=== PATIENT | female | born 1945 | race Caucasian/White ===

== ENCOUNTER 2019-04-23 19:05 | Inpatient (IN) | payer MEDICARE ==
[~2019-04-23 19:05] MED LIST: Iopamidol-370 76% 500 ML 1 ML ONE
[2019-04-23] MEDS ORDERED: Piperacillin/Tazobactam 3.375 GM VIAL ONE (19:49)
[2019-04-23] MEDS ORDERED: Magnesium 2 GM/50 ML BAG (IN WATER) ONE (19:49)
[2019-04-23 20:18] LABS: #Lymphocytes 0.9 thou/uL (1.20-3.40); #Monocytes 0.5 thou/uL (0.11-0.59); #Neutrophils 9.7 thou/uL (1.40-6.50); %Basophils 0.3 % (0.0-1.0); %Eosinophils 0.4 % (0.0-10.0); %Lymphocytes 7.7 % (21.0-51.0); %Monocytes 4.6 % (0.0-10.0); Hemoglobin 13.5 g/dL (12.0-16.0); Mean Corpuscular HGB CONC 32.2 g/dL (32.0-36.0); Mean Corpuscular Hemoglobin 28.8 pg (27.0-31.0); Mean Corpuscular Volume 89.2 fL (78.0-98.0); Mean Platelet Volume 8.3 fL (7.4-10.4); Platelet Count 169 thou/uL (130-400); RBC Distribution Width 17.4 % (11.5-14.5); Red Blood Cell (RBC) Count 4.69 mill/uL (4.20-5.40); White Blood Cell (WBC) Count 11.2 thou/uL (4.8-10.8)
--- NOTE | 2019-04-23 20:22 | RAD ---
EXAM: XR Chest 1 View Portable PROVIDED CLINICAL HISTORY: Hypoxia COMPARISON: None FINDINGS: Cardiac silhouette appears enlarged. No focal consolidation, pleural fluid or pneumothorax apparent. Surgical clips overlie the left chest. IMPRESSION: Cardiomegaly without evidence for an acute cardiopulmonary process.
[2019-04-23 20:23] LABS: Prothrombin Time 13.6 SEC (12.0-14.7)
[2019-04-23 20:31] LABS: Bacteria/HPF None Seen HPF (None Seen); Bilirubin Negative (Negative); Blood, Urine Negative (Negative); Clarity Clear (Clear); Glucose, Urine (Dipstick) Normal (Negative); Leukocyte Negative Leu/uL (Negative); Nitrite Negative (Negative); Protein, Urine (Dipstick) 30 mg/dL (Neg-Trace); RBC/HPF 0-3 HPF (0-3); Squamous Epithelial 0-3 HPF (0-3); Urobilinogen Normal mg/dL (Less than 2); WBC/HPF 0-3 HPF (0-3)
[2019-04-23 20:38] LABS: ALT (SGPT) 24 U/L (8-55); AST (SGOT) 30 U/L (5-34); Albumin 3.4 g/dL (3.4-4.8); Alkaline Phosphatase 67 U/L (40-110); Anion Gap 20 mmol/L (10-20); BUN (Urea Nitrogen) 13 mg/dL (9.8-20.1); Bilirubin, Total 1.4 mg/dL (0.2-1.2); Calc. Creatinine Clearance 0 mL/min (70-130); Calcium 9.3 mg/dL (7.8-10.44); Carbon Dioxide 19 mmol/L (23-31); Chloride 101 mmol/L (98-107); Estimated GFR-MDRD 58; Globulin 2.7 g/dL (2.4-3.5); Glucose 99 mg/dL (83-110); Lipase 27 U/L (8-78); Magnesium 1.6 mg/dL (1.6-2.6); Potassium 3.1 mmol/L (3.5-5.1); Protein, Total 6.1 g/dL (6.0-8.3); Sodium 137 mmol/L (136-145)
[2019-04-23 20:39] LABS: D-Dimer Test 4.81 *mcg/mL (0.27-0.43)
[2019-04-23 20:43] LABS: PTT 17.8 SEC (22.9-36.1)
[2019-04-23 20:57] LABS: Free T4 (Free Thyroxine) 1.2 ng/dL (0.70-1.48); Thyroid Stimulating Hormone 4.8687 uIU/mL (0.35-4.94)
[2019-04-23] MEDS ORDERED: methylPREDNISolone Sod Succ/PF 125 MG/2 ML VIAL ONE (23:04)
[2019-04-23] MEDS ORDERED: diphenhydrAMINE 50 MG/ML VIAL ONE (23:05)
[2019-04-23] MEDS ORDERED: Famotidine/PF 20 mg/2ml Vial ONE (23:06)
[2019-04-24] MEDS ORDERED: Enoxaparin Sodium 30 MG/0.3 ML SYRINGE ONE ×2 (01:38→01:40)
[2019-04-24] MEDS ORDERED: Enoxaparin Sodium 80 MG/0.8 ML SYRINGE ONE (01:38)
[2019-04-24] MEDS ORDERED: Potassium Chloride 20 MEQ TAB ONE (01:40)
[2019-04-24 02:02] LABS: CKMB 1.8 ng/mL (0-6.6)
--- NOTE | 2019-04-24 02:57 | HP ---
PRIMARY CARE PHYSICIAN: The patient currently does not have a primary care physician. CHIEF COMPLAINT: "I was about to pass out." HISTORY OF PRESENT ILLNESS: Ms. Quintero is a pleasant 73-year-old female, who has a history of recently diagnosed colon cancer as well as hypertension and history of coronary artery disease. She says that she was extremely weak, but she says this has been coming on gradually. She says that she was trying to get washed up for an appointment that is going to be later on today, when she says that she just "gave out" and could not get up. She started to get cold and clammy and shaky and this is when her called EMS to bring her to the emergency room. When she was evaluated in the ER, she was found to have an elevated D-dimer, and a CT angiogram was obtained and it was found that she has an acute pulmonary embolus on the right side. She is being admitted for further evaluation. The patient denies any jimenez chest pain or dyspnea. Her main problem is just poor oral intake and feeling generally weak. The patient also admits to having some dark loose stools, but she says she has had this ever since the surgery. She has a history of atrial fibrillation and is not on anticoagulation, but cannot really tell me why she denies having any GI bleed that she is aware of. Her records from [place], [place] were reviewed and it appears as if she has had a recent EGD and biopsy, where she had a pedunculated polyp removed and then also had the colonoscopy and the frozen section of which showed an invasive, moderately differentiated adenocarcinoma, which extended into the muscularis propria and into the mesenteric fascia. REVIEW OF SYSTEMS: All systems were reviewed and are negative except for that mentioned in the history of present illness. PAST MEDICAL HISTORY: Significant for colon cancer, atrial fibrillation, hypertension, and coronary artery disease. ALLERGIES: TO CIPRO AND IODINE. PAST SURGICAL HISTORY: She has had a coronary stent placed. She has had bypass surgery, a partial resection of the colon for colon cancer, cholecystectomy, and knee implant surgery. SOCIAL HISTORY: She is a former smoker, she quit in the . She smoked about a pack a day for the last 20 years. Denies any alcohol use and would like to be a full code. FAMILY HISTORY: Significant for heart disease in her brother as well as prostate cancer. CURRENT MEDICATIONS: Include, 1. Omeprazole 40 mg daily. 2. Augmentin. 3. Famotidine 20 mg a day. 4. Multaq 400 mg twice daily. 5. K-Dur 20 mEq daily. In her records, it appears she was on carvedilol as well as an atorvastatin and a baby aspirin. PHYSICAL EXAMINATION: GENERAL: She is alert and oriented. She appears to be in some mild distress, mainly due to weakness, but she does not appear tachypneic or dyspneic. VITAL SIGNS: The blood pressure was 135/80, her heart rate is 68, respiratory rate of 22, and temperature is 97.8. HEENT: Pupils are equal, round, and reactive. Extraocular muscles are intact. Sclerae are anicteric. Throat, mildly dry mucous membranes. No erythema. No exudates. NECK: No adenopathy. No bruits. LUNGS: Clear to auscultation. There is no wheezing, no rales, no rhonchi. CARDIOVASCULAR: She has a normal S1 and S2. There is no S3 or S4. No murmurs, clicks or rubs. ABDOMEN: Obese. It is soft, nontender, and nondistended. Positive for bowel sounds. No rebound. No guarding. No organomegaly. EXTREMITIES: There is no edema. She does have some bruising on her abdomen and on her lower legs. NEUROLOGIC: The exam is grossly nonfocal. SKIN AND INTEGUMENT: There are no skin changes other than the bruising and some dry skin on the lower extremities. LABORATORY RESULTS: Sodium is 137, potassium 3.1, chloride is 101, CO2 is 19, BUN of 13, and creatinine 0.94. The white blood cell count is 11.2, hemoglobin 13.5, hematocrit is 41.9, and platelet count is . INR is 1.0. Urinalysis is essentially negative. IMAGING DATA: CT angiogram; I do not have the official reading back, but it is reported as having a right sided pulmonary embolism. ASSESSMENT: 1. This is a 73-year-old female, being admitted for an acute pulmonary embolism. She will be admitted and started on anticoagulation. We will monitor her H and H carefully as I am not sure why she had not been on anticoagulation in the past. She may be at risk for a gastrointestinal bleed. Placed her on IV Protonix as well. 2. Colon cancer. This appears to be newly diagnosed. She has not seen any type of oncologist and she was really not clear as to whether or not she would need any further treatment; however, reading the preliminary pathology report, it appears as if there was some extension of the cancer into the muscularis propria. Therefore, we will consult Oncology for recommendations. 3. Coronary artery disease. This appears to be stable, although she has significant T-wave inversions on her EKG. We will submit for records from [facility] for comparison. 4. Hypertension. The patient says she has been taken off all antihypertensive medications due to the low blood pressure. She says that this had been going on prior to her colon surgery. Her pressure, she says, got as low as 76 systolic. She is not really sure why, but it had been low for the past month. Therefore, we will just monitor this and treat accordingly. Job ID: [id number]
[2019-04-24] MEDS ORDERED: Acetaminophen 325 MG TAB PO PRN (03:07)
[2019-04-24] MEDS ORDERED: hydrALAZINE 20 MG/ML VIAL SLOW IVP PRN (03:07)
[2019-04-24 05:36] LABS: #Lymphocytes 0.3 thou/uL (1.20-3.40); #Monocytes 0.1 thou/uL (0.11-0.59); %Eosinophils 0.1 % (0.0-10.0); %Monocytes 1.9 % (0.0-10.0); Mean Corpuscular HGB CONC 33.4 g/dL (32.0-36.0); Mean Corpuscular Hemoglobin 29.1 pg (27.0-31.0); Mean Corpuscular Volume 87.2 fL (78.0-98.0); Mean Platelet Volume 8.2 fL (7.4-10.4); Platelet Count 150 thou/uL (130-400); RBC Distribution Width 17.4 % (11.5-14.5); Red Blood Cell (RBC) Count 4.11 mill/uL (4.20-5.40); White Blood Cell (WBC) Count 5.5 thou/uL (4.8-10.8)
[2019-04-24 05:54] LABS: Anion Gap 16 mmol/L (10-20); BUN (Urea Nitrogen) 12 mg/dL (9.8-20.1); Calc. Creatinine Clearance 0 mL/min (70-130); Calcium 8.6 mg/dL (7.8-10.44); Carbon Dioxide 21 mmol/L (23-31); Chloride 104 mmol/L (98-107); Estimated GFR-MDRD 63; Glucose 106 mg/dL (83-110); Potassium 3.3 mmol/L (3.5-5.1); Sodium 138 mmol/L (136-145)
--- NOTE | 2019-04-24 07:03 | CT ---
PRELIMINARY REPORT/[facility]/EMERGENCY AFTER HOURS PROCEDURE: EXAM: CTA Chest with Intravenous Contrast CLINICAL HISTORY: 73 yo F presents to ER with c/o generalized weakness. ER nurse reports recent ER visit for UTI. Pt re ports she had recent colon cancer and surgery 1 month ago. Pt denies fever, abdominal pain, chest ed n, SOB. Pt reports she has atrial fibrillation and takes medication for it. TECHNIQUE: Axial CTA images of the chest with intravenous contrast. MIP reconstructed images were created and re viewed. CONTRAST: With; ISOVUE 370,100mL COMPARISON: None provided. FINDINGS: PULMONARY ARTERIES Enlarged main pulmonary artery measuring up to 4.3 cm in diameter. Emboli in the right middle and lo wer lobar and segmental arterial branches. AORTA Enlarged ascending aorta measuring up to 4.1 cm in diameter. Atherosclerosis. LUNGS Bibasilar subsegmental atelectasis. No pulmonary mass. No focal airspace consolidation. PLEURAL SPACES Trace right-sided pleural effusion. No pneumothorax. HEART AND MEDIASTINUM Moderate cardiomegaly. No significant pericardial effusion. The coronary arteries are calcified. LYMPH NODES No lymphadenopathy. BONES No focal osseous abnormality or acute fracture. Multilevel degenerative disc disease. CHEST WALL AND UPPER ABDOMEN Cholecystectomy clips in the gallbladder fossa. Small hiatal hernia. 2.2 cm hypodense left adrenal adenoma. 1.8 cm cyst at the upper pole of the right kidney. The chest wall is unremarkable. IMPRESSION: Emboli in the right middle and lower lobar and segmental arterial branches. No evidence of right-lisa ed cardiac strain. Enlarged main pulmonary artery suggestive of pulmonary artery hypertension. Bibasilar subsegmental atelectasis. Trace right-sided pleural effusion. Moderate cardiomegaly. Coronary artery disease. Ectasia of the ascending aorta. ELECTRONICALLY SIGNED BY: Danilo Hu MD Apr 24, 2019 1:14:15 AM PHOTOGRAPHIC MACHINE OPERATOR This report is intended for review by the ordering physician only, in accordance of law. If you recei ve this report in error, please call [facility] at [phone]. FINAL REPORT EMERGENCY AFTER HOURS CTA CHEST: I agree with the preliminary report provided by [facility]. Findings are positive for PE within lobar and segmental branches of the right middle lobe and right l ower lobe with enlargement of the pulmonary arterial tree likely related to some underlying pulmonary artery hypertension. The ascending aorta measures 3.9 cm and only minimally ectatic. There are coron sofiya artery and thoracic aortic calcifications. There is a small hiatal hernia. Gallbladder is surgica lly absent. There are small bilateral pleural effusions, right greater than left, with areas of scatt ered subsegmental volume loss. POS: BH
--- NOTE | 2019-04-24 07:06 | CT ---
PRELIMINARY REPORT/[facility]/EMERGENCY AFTER HOURS PROCEDURE: EXAM: CT Abdomen and Pelvis with Intravenous Contrast CLINICAL HISTORY: 73 yo F presents to ER with c/o generalized weakness. ER nurse reports recent ER visit for UTI. Pt re ports she had recent colon cancer and surgery 1 month ago. Pt denies fever, abdominal pain, chest ed n, SOB. Pt reports she has atrial fibrillation and takes medication for it. TECHNIQUE: Axial computed tomography images of the abdomen and pelvis with intravenous contrast. CONTRAST: With; ISOVUE 370,100mL COMPARISON: None provided. FINDINGS: LUNGS: Trace right-sided pleural effusion. Compression atelectasis bilaterally. LIVER: Unremarkable. GALLBLADDER AND BILE DUCTS: Cholecystectomy clips in the gallbladder fossa. No ductal dilation. PANCREAS: Unremarkable. SPLEEN: Unremarkable. ADRENAL GLANDS: 2 cm heterogeneous left adrenal lesion. The right adrenal gland is normal. KIDNEYS, URETERS, AND BLADDER: Unremarkable. No hydronephrosis or nephrolithiasis. No ureteral or yuridia dder calculi. STOMACH AND BOWEL: Small hiatal hernia. No obstruction. No wall thickening. No CT evidence of coliti s or acute diverticulitis. Sutures in the left hemiabdomen associated with the colon. APPENDIX: No CT evidence for appendicitis. PERITONEUM: No free fluid. No free air. LYMPH NODES: No lymphadenopathy. REPRODUCTIVE: 4.9 cm lesion in the uterine body. VASCULATURE: No aortic aneurysm. Atherosclerosis. BONES: No fracture or suspicious osseous abnormality. Osteoarthritis of the bilateral hips and SI pedro pablo ints. Multilevel degenerative disc disease. ABDOMINAL WALL AND SOFT TISSUES: Linear scar tissue in the ventral abdominal wall. IMPRESSION: No acute intra-abdominal or pelvic abnormality. Heterogeneous mass in the uterus which may represent a fibroid although a malignant process cannot be excluded. Follow-up with an MRI of the pelvis is recommended. Heterogeneous lesion in the left adrenal gland. Follow-up with an adrenal protocol CT or MRI is ariel mmended. ELECTRONICALLY SIGNED BY: Danilo Hu MD Apr 24, 2019 1:19:52 AM SCOREBOARD OPERATOR This report is intended for review by the ordering physician only, in accordance of law. If you recei ve this report in error, please call [facility] at [phone]. FINAL REPORT EMERGENCY AFTER HOURS CT ABDOMEN AND PELVIS: I agree with the preliminary report provided by [facility]. No definite acute CT abnormality is evident. There is a heterogeneous nodule involving the left adren al gland that requires further evaluation. There are small bilateral pleural effusions. There is a sm all hiatal hernia. The gallbladder is surgically absent. There is postsurgical change with partial co lectomy. There is a fibroid uterus. Small bowel is of normal caliber. There is scattered degenerative and osteoarthritic change. POS: BH
[2019-04-24] MEDS: Pantoprazole 40 MG VIAL IVP SCH ×2 (09:43→20:46)
[2019-04-24] MEDS: Sodium Chloride 0.9% (PF) 10 ML VIAL FS PRN (09:43)
[2019-04-24] MEDS: Enoxaparin Sodium 120 MG/0.8 ML SYRINGE SC SCH ×2 (09:43→20:46)
[2019-04-24] MEDS ORDERED: Prevnar 13-Val Conj/PF 0.5 ML SYRINGE IM ONE (10:30)
[2019-04-24] MEDS: Potassium Chloride 20 MEQ TAB PO SCH (20:46)
--- NOTE | 2019-04-24 21:21 | CON ---
DATE OF CONSULTATION: REASON FOR CONSULTATION: Colon cancer. HISTORY OF PRESENT ILLNESS: Ms. Quintero is a 73-year-old female, who presented to her primary care several weeks ago with abdominal discomfort. She was instructed to follow up with GI, but presented to the emergency room in [place], [place]. She states she underwent endoscopy and noted to have a mass. She then underwent surgery and the mass was removed and positive for adenocarcinoma. She was told that she was cancer free. She also states she was instructed to follow up with [facility] for her fibroid. She has not been on anticoagulation since surgery and is unclear as to why. She states over the past year, she has lost 100 pounds simply due to the fact that she is unable to eat. She feels nauseated when she takes food in her mouth or if food smells bad. Since her surgery last month, she has been weak and lying in bed. She began to have syncopal episodes with walking and shortness of breath, so she presented to our emergency room for evaluation. In the emergency room, a CT angio of the chest was performed. She had emboli in the right middle and lower lobe and segmental arterial branches. There was no evidence for right-sided cardiac strain. She also had enlarged main pulmonary artery suggestive of pulmonary artery hypertension, it was moderate cardiomegaly. She underwent a CT of the chest and pelvis. There was a heterogeneous mass in the uterus that was likely the fibroid she was speaking of. There was also a lesion in the left adrenal gland that was likely a cyst. no evidence of colon mass. The patient was started on therapeutic Lovenox and IV Protonix. Her antihypertensives were held. We were asked to see the patient regarding her newly diagnosed cancer. PAST MEDICAL HISTORY: 1. Atrial fibrillation. 2. Newly diagnosed colon cancer. 3. Hypertension. 4. Coronary artery disease. PAST SURGICAL HISTORY: 1. Endoscopy. 2. CABG. 3. Cholecystectomy. 4. Knee surgery. 5. Resection of colon mass. ALLERGIES: TO CODEINE AND IODINE. HOME MEDICATIONS: 1. Amoxicillin. 2. Multaq. 3. Prilosec. 4. K-Dur. FAMILY HISTORY: Brother had prostate cancer. SOCIAL HISTORY: , lives with her on the other side of [place]. She gets her primary care in [place] in [place]. Former history of smoking. No alcohol or illicit drug use. REVIEW OF SYSTEMS: A 10-point review of systems is negative except for noted in HPI. PHYSICAL EXAMINATION: VITAL SIGNS: Temperature is 98.2, pulse is 88, respiratory rate 20, blood pressure is 142/76. She is 97% on room air. GENERAL: This is a well-developed, well-nourished female, in no acute distress. HEENT: Normocephalic, atraumatic. Pupils are equal and reactive to light. NECK: Supple. CV: Regular rate and rhythm. LUNGS: Clear. ABDOMEN: Soft and nontender. Bowel sounds are positive. EXTREMITIES: No clubbing or cyanosis. SKIN: She has a midline abdominal incision that is healing well. HEMATOLOGICAL: She has scattered bruising on her abdomen from what appears to be Lovenox injections. NEUROLOGIC: She is nonfocal. PSYCHIATRIC: She is alert oriented and appropriate. PERTINENT LABS AND X-RAYS: Current WBCs are 5.5, hemoglobin 12, hematocrit 35.8 , platelet count is 150,000, she has 92% neutrophils and 6% lymphocytes. PT is 13.6, INR is 1.0, PTT 17.8. D-dimer is 4.8. Sodium is 138, potassium 3.3, chloride 104, CO2 is 21, BUN is 12, creatinine 0.88. Lactic acid 2. Calcium 8.6, bilirubin is 1.4, AST is 30, ALT is 24, alkaline phosphatase is 67. Troponin is 0.085. BNP is 2876. Serum total protein is 6.1, albumin 3.4, globulin 2.7. Thyroid is normal. Urine is normal. Radiology per HPI. ASSESSMENT: 1. Newly diagnosed colon cancer with resection of tumor. 2. Pulmonary emboli, postsurgical. 3. History of atrial fibrillation, off anticoagulation. DISCUSSION: The patient has no medical records from [place] in her chart. Apparently, she did have some, but her has taken those home. I am unable to give her any recommendations regarding treatment for her colon cancer. We have asked for [facility] to re-fax these medical records. I have asked her to contact her and have him bring those records back. She did have followup appointments with an Oncology in [place] and with [facility] in [place], which she canceled because she was "sick of doctors." We discussed having followup here in [facility] versus [place] and she states [facility] is essentially the same distance. Since her primary care is in [place] and she has been receiving her care in [place], she would likely go back there, but our clinic information was provided. When/if medical records are obtained for her colon cancer, I can make recommendation regarding chemotherapy. Thank you for the consult. Job ID: [id number] [email or web address]
[2019-04-25] MEDS: Potassium Chloride 20 MEQ TAB PO SCH ×3 (01:02→11:32)
[2019-04-25 04:35] LABS: Magnesium 1.8 mg/dL (1.6-2.6)
[2019-04-25 04:41] LABS: Potassium 2.9 mmol/L (3.5-5.1)
[2019-04-25] MEDS ORDERED: Potassium Chloride 40 MEQ in Sodium Chloride 0.9% 250 ML 250 ML IVPB SCH ×2 (05:15→14:30)
[2019-04-25] MEDS: Sodium Chloride 0.9% (PF) 10 ML VIAL FS PRN (08:48)
[2019-04-25] MEDS: Enoxaparin Sodium 120 MG/0.8 ML SYRINGE SC SCH ×2 (08:51→20:53)
[2019-04-25] MEDS: Pantoprazole 40 MG VIAL IVP SCH ×2 (08:52→20:53)
--- NOTE | 2019-04-25 10:34 | CON ---
DATE OF CONSULTATION: 04/25/2019 CONSULTING PHYSICIAN: Hospitalist. REASON FOR CONSULTATION: Pulmonary embolism. The following encompassed 75 minutes of time, of that time, greater than 50% was spent with the patient and/or the patient's unit in the hospital. HISTORY OF PRESENT ILLNESS: The patient is a 73-year-old female, who came in yesterday with weakness. She says she almost passed out. She has been having incremental problems with low blood pressure. She had surgery for a colon tumor at [facility] in late February and was hospitalized until sometime early in March. She has had several more visits to the hospital related to hypotension. She said her hypotension actually proceeds the surgical date. Last night when she presented here, she underwent CT pulmonary angiogram, which showed a small right lower lobe pulmonary embolism. Her blood pressure has been appropriate since admission. The patient states that she has not been ambulatory since her surgery. PAST MEDICAL HISTORY: 1. No previous history of pulmonary embolism. 2. Chronic atrial fibrillation, now in sinus rhythm, on Multaq. 3. Colon cancer. 4. Hypertension. 5. Coronary artery disease. 6. Coronary stent placement. 7. Pacemaker placement. 8. Coronary artery bypass grafting surgery. 9. Cholecystectomy. 10. Knee surgery. ALLERGIES: CODEINE AND IODINE. MEDICATIONS: Prior to admission; 1. Amoxil. 2. Multaq. 3. Prilosec. 4. K-Dur. FAMILY HISTORY: Remarkable for prostate cancer. SOCIAL HISTORY: Former smoker. She lives outside of [place]. Does not use illicit drugs. Does not drink alcohol. REVIEW OF SYSTEMS: Remarkable for nausea, vomiting, syncopal spells, and decreased ambulation. PHYSICAL EXAMINATION: VITAL SIGNS: Temperature 98.4, pulse 79, blood pressure 153/90. The lowest blood pressure we have measured is 115/82. GENERAL: She is awake, alert, and in no distress. HEENT: Unremarkable. NECK: No adenopathy or JVD. LUNGS: Clear without wheezing or rhonchi. CARDIOVASCULAR: S1 and S2 regular with occasional ectopy. ABDOMEN: Soft, morbidly obese. EXTREMITIES: No clubbing, cyanosis, or edema. LABORATORY DATA: Sodium 138, potassium 2.9, chloride 104, CO2 of 21, BUN 12, creatinine 0.8, and glucose 106. Troponin 0.85. Lactate initially 3.8, now 2.0. INR 1.0. White blood cell count 5.5, hematocrit 35.8, and platelet count 150. IMAGING DATA: CT pulmonary angiogram was reviewed. ASSESSMENT: 1. Pulmonary embolism. I am not sure what we are seeing on the CT scan would necessarily explain a syncopal or presyncopal event. 2. Colon cancer. 3. Other medical problems as listed above. RECOMMENDATIONS: 1. Scan bilateral lower extremities to assess for clot burden. 2. Continue anticoagulation. 3. I would consider further workup for her syncope. This could involve Cardiology referral. The patient is stable for transfer to telemetry. Job ID: [id number]
--- NOTE | 2019-04-25 11:16 | ULT ---
BILATERAL LOWER EXTREMITY VENOUS DOPPLER ULTRASOUND: Date: 04/25/2019 HISTORY: Bilateral leg pain. TECHNIQUE: Garcia scale ultrasound with color flow and spectral Doppler imaging of the deep venous systems of the lower extremities was performed bilaterally. FINDINGS: There is good flow, compression, and augmentation noted in the common femoral, femoral, deep femoral, popliteal, posterior tibial, and greater saphenous veins on either side. IMPRESSION: No evidence of deep venous thrombosis in either lower extremity. POS: TPC
[2019-04-25 14:00] LABS: Anion Gap 12 mmol/L (10-20); BUN (Urea Nitrogen) 14 mg/dL (9.8-20.1); Calc. Creatinine Clearance 97 mL/min (70-130); Calcium 8.6 mg/dL (7.8-10.44); Carbon Dioxide 24 mmol/L (23-31); Chloride 104 mmol/L (98-107); Estimated GFR-MDRD 59; Glucose 80 mg/dL (83-110); Potassium 3.4 mmol/L (3.5-5.1); Sodium 137 mmol/L (136-145)
--- NOTE | 2019-04-25 14:32 | PDOC.MOPN ---
Interval History: sleepy today, at bedside - Vital Signs Vital Signs: Vital Signs (12 hours) Temp Pulse Pulse BP BP Pulse Ox Pulse Ox 04/25/19 11:24 98 F 04/25/19 10:00 81 87 162/104 H 161/99 H 96 04/25/19 08:00 94 L 04/25/19 07:21 98.4 F Pulse Ox 04/25/19 11:24 04/25/19 10:00 96 04/25/19 08:00 04/25/19 07:21 Weight Admit Weight 251 lb 5.231 oz Weight 251 lb 5.231 oz Most Recent Monitor Data Heart Rate from ECG 74 NIBP 147/86 NIBP BP-Mean 106 Respiration from ECG 16 SpO2 96 - Physical Exam General: No acute distress HEENT: Atraumatic, PERRLA, EOMI, Mucous membr. moist/pink Lungs: Clear to auscultation, Normal air movement Cardiovascular: Regular rate, Normal S1, Normal S2, No murmurs, Gallops, Rubs Abdomen: Normal bowel sounds, Soft, No tenderness, No hepatospenomegaly, No masses Extremities: No clubbing, No cyanosis, No edema, Normal pulses, No tenderness/ swelling Neurological: Normal speech Psych/Mental Status: Mental status NL - Labs Result Diagrams: 04/24/19 05:19 04/25/19 13:07 Lab results: Laboratory Results - last 24 hr 04/25/19 13:07: Sodium 137, Potassium 3.4 L, Chloride 104, Carbon Dioxide 24, Anion Gap 12, BUN 14, Creatinine 0.93, Estimated GFR (MDRD) 59, Glucose 80 L, Calcium 8.6 04/25/19 03:43: Potassium 2.9 L*, Magnesium 1.8 Status: lab reviewed by me A/P - Problem (1) Adenocarcinoma, colon Current Visit: Yes Code(s): C18.9 - MALIGNANT NEOPLASM OF COLON, UNSPECIFIED Status: Acute - Plan Plan: Based on pathology, patient has pT3, pN1C adenocarcinoma. Stage IIIB she needs adjuvant chemotherapy. Discussed at length with . She has option to see us here or follow-up in [place] where she was diagnosed. Needs further workup for syncope. We will follow remotely during hospitalization.
--- NOTE | 2019-04-25 19:21 | PDOC.HOSPP ---
- Subjective Encounter Date: 04/25/19 Encounter Time: 09:00 Subjective: no overnight events. This morning, feeling well with exception of reduced appetite due to change in taste that she's had for the past year. - Objective Vital Signs & Weight: Vital Signs (12 hours) Temp Pulse Pulse BP BP Pulse Ox Pulse Ox 04/25/19 19:17 98.2 F 04/25/19 16:10 98 F 04/25/19 11:24 98 F 04/25/19 10:00 81 87 162/104 H 161/99 H 96 04/25/19 08:00 94 L 04/25/19 07:21 98.4 F Pulse Ox 04/25/19 19:17 04/25/19 16:10 04/25/19 11:24 04/25/19 10:00 96 04/25/19 08:00 04/25/19 07:21 Weight Admit Weight 251 lb 5.231 oz Weight 251 lb 5.231 oz Most Recent Monitor Data Heart Rate from ECG 79 NIBP 147/96 NIBP BP-Mean 113 Respiration from ECG 19 SpO2 96 I&O: 04/24/19 04/25/19 04/26/19 06:59 06:59 06:59 Intake Total 270 414 Output Total 300 Balance -30 414 Result Diagrams: 04/24/19 05:19 04/25/19 13:07 Hospitalist ROS - Review of Systems Constitutional: denies: fever, chills, sweats, weakness, malaise, other Respiratory: denies: cough, dry, shortness of breath, hemoptysis, SOB with excertion, pleuritic pain, sputum, wheezing, other Cardiovascular: denies: chest pain, palpitations, orthopnea, paroxysmal noc. dyspnea, edema, light headedness, other Gastrointestinal: denies: nausea, vomiting, abdominal pain, diarrhea, constipation, melena, hematochezia, other Neurological: denies: weakness - Medication Medications: Active Medications Generic Name Dose Route Start Last Admin Trade Name Freq PRN Reason Stop Dose Admin Enoxaparin Sodium 110 mg 04/24/19 09:00 04/25/19 08:51 Lovenox SC 110 mg 0900,2100 BENJY Administration Pantoprazole Sodium 40 mg 04/24/19 09:00 04/25/19 08:52 Protonix IVP 40 mg Q12HR BENJY Administration Sodium Chloride 10 ml 04/24/19 03:18 04/25/19 08:48 Normal Saline Pf FS 10 ml PRN PRN Administration RECONSTITUTION - Exam General Appearance: NAD, awake alert Neck: no JVD Heart: RRR, no murmur, no gallops, no rubs Respiratory: CTAB, no wheezes, no rales, no ronchi, normal chest expansion Gastrointestinal: soft, non-tender, non-distended, normal bowel sounds Extremities: no edema Psychiatric: normal behavior, A&O x 3, flat affect Hosp A/P - Plan * Right lung lobar and segmental PE * though post surgical, has active cancer * based on LE duplex, low clot burden; in context of active cancer (therefore increased risk of bleeding) may aid in duration of therapy * * will continue lovenox * presyncope * likely multifactorial: lobar and segmental PE, pHTN, orthostatic (due to reduced appetite, n/v), paroxysmal atrial fibrillation * during inpatient stay, sinus rhythm * colon cancer * patient advised to follow up for adjuvent therapy either with us or in [place] * * rest of management unchanged
[2019-04-26 00:48] LABS: Potassium 3.8 mmol/L (3.5-5.1)
[2019-04-26 04:21] LABS: Magnesium 1.8 mg/dL (1.6-2.6); Potassium 3.9 mmol/L (3.5-5.1)
[2019-04-26] MEDS: Enoxaparin Sodium 120 MG/0.8 ML SYRINGE SC SCH ×2 (07:25→21:10)
[2019-04-26] MEDS: Sodium Chloride 0.9% (PF) 10 ML VIAL FS PRN ×2 (07:26→21:11)
[2019-04-26] MEDS: Pantoprazole 40 MG VIAL IVP SCH ×2 (07:27→21:11)
--- NOTE | 2019-04-26 08:58 | PRG ---
DATE OF SERVICE: 04/26/2019 SUBJECTIVE: The patient is still having sensations of her head spinning when she gets up. OBJECTIVE: VITAL SIGNS: Temperature 97.2, pulse 79, blood pressure 146/86, and O2 sat 100%. HEENT: Unremarkable. NECK: No JVD. LUNGS: Clear. CARDIAC: S1 and S2. Regular. ABDOMEN: Soft. EXTREMITIES: No edema. LABORATORY DATA: No labs were obtained today. ASSESSMENT: 1. Pulmonary embolism without deep venous thrombosis. 2. Syncopal spells versus Meniere's versus some type of cerebellar syndrome contributing to dizziness. RECOMMENDATIONS: 1. I do not think the pulmonary embolism is related to her presyncopal spells. 2. For the pulmonary embolism, I would recommend anticoagulation for at least 6 months. You can switch to Xarelto or Eliquis at any time. The patient does not require IMCU care at this time. No further recommendations from Pulmonary standpoint. Job ID: [id number]
[2019-04-26] MEDS: Dronedarone HCl 400 MG TAB PO SCH (17:21)
--- NOTE | 2019-04-26 17:44 | PDOC.HOSPP ---
- Subjective Encounter Date: 04/26/19 Encounter Time: 10:00 Subjective: no overnight events. This morning, feels well and has no complaints except reduced appetite for the past year and continued dizziness when moving from supine to erect position - Objective Vital Signs & Weight: Vital Signs (12 hours) Temp Pulse Pulse Resp BP BP Pulse Ox 04/26/19 14:06 97.9 F 86 18 166/98 H 95 04/26/19 11:13 98.6 F 04/26/19 10:16 111 H 152/91 H 04/26/19 07:55 100 04/26/19 07:39 97.2 F L Weight Admit Weight 251 lb 5.231 oz Weight 251 lb 5.231 oz Most Recent Monitor Data Heart Rate from ECG 81 NIBP 152/91 NIBP BP-Mean 111 Respiration from ECG 16 SpO2 100 I&O: 04/25/19 04/26/19 04/27/19 06:59 06:59 06:59 Intake Total 270 654 Output Total 300 550 Balance -30 104 Result Diagrams: 04/24/19 05:19 04/26/19 03:26 Hospitalist ROS - Review of Systems Constitutional: reports: weakness, malaise. denies: fever, chills, sweats, other Eyes: denies: vision change ENT: denies: ear pain Respiratory: denies: cough, dry, shortness of breath, hemoptysis, SOB with excertion, pleuritic pain, sputum, wheezing, other Cardiovascular: denies: chest pain, palpitations, orthopnea, paroxysmal noc. dyspnea, edema, light headedness, other Gastrointestinal: denies: nausea, vomiting, abdominal pain, diarrhea, constipation, melena, hematochezia, other Genitourinary: denies: dysuria, frequency, incontinence, hematuria, retention, other Neurological: reports: weakness. denies: numbness, incoordination Other: complains of dizziness when moving from supine to erect position however not worse on head movement, no tinnitus, hearing loss All other systems reviewed; all pertinent +/- noted in HPI/Subj - Medication Medications: Active Medications Generic Name Dose Route Start Last Admin Trade Name Freq PRN Reason Stop Dose Admin Dronedarone 400 mg 04/26/19 17:00 04/26/19 17:21 Multaq PO 400 mg BID-WM BENJY Administration Enoxaparin Sodium 110 mg 04/24/19 09:00 04/26/19 07:25 Lovenox SC 110 mg 0900,2100 BENJY Administration Pantoprazole Sodium 40 mg 04/24/19 09:00 04/26/19 07:27 Protonix IVP 40 mg Q12HR BENJY Administration Sodium Chloride 10 ml 04/24/19 03:18 04/26/19 07:26 Normal Saline Pf FS 10 ml PRN PRN Administration RECONSTITUTION - Exam General Appearance: NAD, awake alert Eye: PERRL, anicteric sclera ENT: normocephalic atraumatic, moist mucosa Neck: no JVD Heart: RRR, no murmur, no gallops, no rubs Hosp A/P - Plan * Right lung lobar and segmental PE * though post surgical, has active cancer * based on LE duplex, low clot burden; * DOAC DVT treatment higher risk of bleeding than lower molecular weight heparin specifically in patients with GI cancer; Will discuss risk and benefits of lovenox and DOACs with patient and pulmonolgy, heme/onc prior to transitioning to DOACs * presyncope * complaining of dizziness when standing up but not worsening with head motion ; short duration; therefore dizziness less likely form of vertigo; * possibilities/multifactorial: lobar and segmental PE, pHTN, orthostatic (due to reduced appetite, n/v), paroxysmal atrial fibrillation * during inpatient stay, sinus rhythm * * orthostats * will again clarify symptoms and triggers with patient * * colon cancer * loss of appetite * patient advised to follow up for adjuvent therapy either with us or in [place] * educated patient regarding megestrol and its prothombotic side effects, requirement to address underlying condition (cancer) to improve symptoms; appreciate heme/onc recommendations * * rest of management unchanged
[2019-04-27] MEDS ORDERED: Ondansetron PF 4 MG/2 ML Vial IVP PRN (00:11)
[2019-04-27] MEDS ORDERED: Ondansetron ODT 4 MG TAB PO PRN (00:11)
[2019-04-27 05:45] LABS: Potassium 3.6 mmol/L (3.5-5.1)
[2019-04-27] MEDS: Enoxaparin Sodium 120 MG/0.8 ML SYRINGE SC SCH (08:29)
[2019-04-27] MEDS: Sodium Chloride 0.9% (PF) 10 ML VIAL FS PRN ×2 (08:30→20:41)
[2019-04-27] MEDS: Pantoprazole 40 MG VIAL IVP SCH ×2 (08:30→20:41)
[2019-04-27] MEDS: Dronedarone HCl 400 MG TAB PO SCH (09:09)
[2019-04-27] MEDS ORDERED: Megestrol Acetate 40 MG TAB PO SCH (11:15)
--- NOTE | 2019-04-27 11:19 | PDOC.HOSPP ---
- Subjective Encounter Date: 04/27/19 Encounter Time: 09:00 Subjective: no overnight events. This morning, had afib w/ RVR temporally associated with presyncopal episode requiring stopping physical therapy. Upon resting, went back to sinus rhythm. Conversed with patient regarding anticoagulant choice and she prefers DOACs. Otherwise, feeling well and has no complaints. - Objective Vital Signs & Weight: Vital Signs (12 hours) Temp Pulse Resp BP BP BP BP 04/27/19 07:36 97.4 F L 77 14 138/96 H 04/27/19 04:00 97.5 F L 82 16 157/103 H 158/91 H 149/91 H 04/27/19 00:00 97.8 F 91 16 140/93 H Pulse Ox 04/27/19 07:36 94 L 04/27/19 04:00 96 04/27/19 00:00 96 Weight Admit Weight 251 lb 5.231 oz Weight 251 lb 5.231 oz Most Recent Monitor Data Heart Rate from ECG 81 NIBP 152/91 NIBP BP-Mean 111 Respiration from ECG 16 SpO2 100 I&O: 04/26/19 04/27/19 04/28/19 06:59 06:59 06:59 Intake Total 654 Output Total 550 Balance 104 Result Diagrams: 04/24/19 05:19 04/27/19 04:58 Hospitalist ROS - Review of Systems Constitutional: denies: fever, chills, sweats, weakness, malaise, other Respiratory: denies: cough, dry, shortness of breath, hemoptysis, SOB with excertion, pleuritic pain, sputum, wheezing, other Cardiovascular: reports: palpitations. denies: chest pain, orthopnea, paroxysmal noc. dyspnea, edema, light headedness, other Gastrointestinal: reports: nausea. denies: vomiting, abdominal pain, diarrhea, constipation, melena Genitourinary: denies: dysuria, frequency, incontinence, hematuria Skin: denies: rash, lesions Neurological: reports: weakness. denies: numbness, incoordination, change in speech, confusion, seizures - Medication Medications: Active Medications Generic Name Dose Route Start Last Admin Trade Name Freq PRN Reason Stop Dose Admin Dronedarone 400 mg 04/26/19 17:00 04/27/19 09:09 Multaq PO 400 mg BID-WM BENJY Administration Ondansetron HCl 4 mg 04/27/19 00:11 04/27/19 08:29 Zofran Odt PO 4 mg Q6H PRN Administration Nausea/Vomiting Ondansetron HCl 4 mg 04/27/19 00:11 04/27/19 00:35 Zofran IVP 4 mg Q6H PRN Administration Nausea/Vomiting Pantoprazole Sodium 40 mg 04/24/19 09:00 04/27/19 08:30 Protonix IVP 40 mg Q12HR BENJY Administration Sodium Chloride 10 ml 04/24/19 03:18 04/27/19 08:30 Normal Saline Pf FS 10 ml PRN PRN Administration RECONSTITUTION - Exam General Appearance: NAD, awake alert General - other findings: lying in bed comfortably ENT: normocephalic atraumatic, moist mucosa Neck: no JVD Heart: RRR, no murmur, no gallops, no rubs Heart - other findings: orthostats negative Respiratory: CTAB, no wheezes, no rales, no ronchi Gastrointestinal: soft, non-tender, non-distended, normal bowel sounds Extremities: no edema Psychiatric: normal affect, normal behavior, A&O x 3 Hosp A/P - Plan * Right lung lobar and segmental PE * transitioned to eliquis 5mg PO bid per patient preference despite education regarding benefits and risks vs LMWH * presyncope * symptomatic paroxysmal atrial fibrillation * afib w/ RVR to 150s while attempting to walk with PT; required stopping session * orthostats -ve * * consult cardiology for symptomatic paroxysmal atrial fibrillation * will attempt to arrive during PT session to observe gait and symptoms * colon cancer * loss of appetite * started megestrol due to patient prefernces despite being educated regarding risks * * rest of management unchanged
--- NOTE | 2019-04-27 15:12 | CON ---
DATE OF CONSULTATION: HISTORY OF PRESENT ILLNESS: The patient is an unfortunate 73-year-old woman, who presented with hypotension and lightheadedness. The patient has a history of coronary artery disease in 2004, she underwent PTCA and stent placement. The patient states she subsequently in 2007 underwent coronary artery bypass surgery x1. The patient has subsequently done well except for paroxysmal atrial fibrillation. The patient has been treated with Multaq by a cost control supervisor in [place]. The patient recently was diagnosed with colon carcinoma and underwent surgery. She subsequently developed weakness and hypotension. The patient was admitted for further evaluation. The patient at this time reports being extremely nauseated. She reports having occasional palpitations. She denies having any chest discomfort. She states she feeling extremely weak. PAST MEDICAL HISTORY: 1. Coronary artery disease. 2. Colon carcinoma. 3. Hypertension. 4. Atrial fibrillation. PAST SURGICAL HISTORY: Knee surgery, cholecystectomy, colon surgery, and bypass surgery. ALLERGIES: CIPROFLOXACIN AND IODINE. SOCIAL HISTORY: Former smoker. FAMILY HISTORY: Strong family history of coronary artery disease. MEDICATIONS: See nursing list. REVIEW OF SYSTEMS: Ten-point system otherwise unremarkable. PHYSICAL EXAMINATION: GENERAL: Reveals an obese woman, in no acute distress. VITAL SIGNS: Blood pressure 141/90. NECK: Showed no jugular venous distention. LUNGS: Clear to auscultation. HEART: Regular rate and rhythm. Normal S1 and S2. 1/6 systolic murmur. ABDOMEN: Distended. EXTREMITIES: Showed trace edema. LABORATORY DATA: Sodium 137, potassium 3.4, chloride 104, bicarbonate 24, BUN 14, creatinine 0.93, and glucose is 59. White blood cell count 5.5, hemoglobin 12.0 , hematocrit 35.8, and platelets are 150. IMAGING DATA: Her EKG revealed normal sinus rhythm with a markedly prolonged QT interval and Q-waves suggestive of a previous inferior infarct. CT scan revealed multiple pulmonary emboli. IMPRESSION: 1. Pulmonary emboli. 2. Dehydration. 3. History of coronary artery bypass surgery. 4. History of atrial fibrillation. 5. Prolonged QT interval. 6. Colon carcinoma, status post resection. PLAN: This is an unfortunate woman, who presented with a pulmonary embolus. She is on Multaq and has a marked prolonged QT interval. It may be best to discontinue this medication and we will obtain an EP consultation. The patient has persistent nausea and vomiting. I we would consider GI evaluation. We will check an echocardiogram to evaluate pulmonary pressures and follow this patient with you through her hospitalization. Job ID: [id number] MTDD
[2019-04-27] MEDS: Carvedilol 3.125 MG TAB PO SCH (16:42)
[2019-04-27] MEDS ORDERED: Aspirin 81 mg Enteric Coated Tablet PO SCH (17:30)
[2019-04-27] MEDS: Digoxin 0.5 MG/2 ML AMP SLOW IVP SCH ×2 (17:53→20:41)
[2019-04-27] MEDS ORDERED: Digoxin 0.5 MG/2 ML AMP SLOW IVP SCH (20:30)
[2019-04-27] MEDS: Atorvastatin Calcium 40 MG TAB PO SCH (20:42)
[2019-04-27] MEDS: Apixaban 5 MG TAB PO SCH (20:42)
--- NOTE | 2019-04-27 22:05 | CON ---
DATE OF CONSULTATION: 04/27/2019 REASON FOR CONSULTATION: Chronic nausea/vomiting, dysgeusia, weight loss. CONSULTING PROVIDER: Apollo Flynn MD HISTORY OF PRESENT ILLNESS: The patient is a 73-year-old female with past medical history of hyperlipidemia, hypertension, atrial fibrillation, coronary artery disease status post CABG, morbid obesity, GERD and colon cancer with left hemicolectomy in February 2019, who initially presented with complaints of generalized weakness and what appeared to be a presyncopal event. Per chart review, the patient was recently admitted to hospital in [place], [place], where the patient underwent both EGD and colonoscopy and diagnosed with adenocarcinoma of the descending colon. She subsequently underwent left hemicolectomy in February 2019 and had been doing well in the postoperative period. However, since that time, the patient noted that she had been having darker colored stools (could not confirm that they were black) and had been progressively getting weaker since the surgery itself until April 23 when she stated that she was getting ready for a doctor's appointment the next day and states that her legs gave out and she could not rise from a seated position on the toilet. She also experienced subjective chills and diaphoresis at which point, the EMS was called and she was subsequently brought to the emergency room. On initial evaluation in the emergency room, she underwent workup with an elevated D-dimer and a CT angiogram which showed an acute pulmonary embolus within the right side. However, she was also noted to have a significantly elevated BNP concerning for worsening cardiac disease and possible heart failure. Currently, she is undergoing cardiac workup related to probable congestive heart failure, but she also noted during the initial workup that she had been having chronic nausea, vomiting, dysgeusia, and parosmia for at least the last year. She describes this as progressive worsening of "everything tasted and smell terrible." This is manifested to the point where the patient has been unable to tolerate oral or liquid food stuffs due to the significantly worsened taste of any of these ingested materials. Upon further questioning, she also noted that she had been having episodes of decreased blood pressure at home and noted that her nausea would worsen with decrease in her blood pressure and improve with resolution of normotensive pressures. She also describes increased nasal congestion and a "drippy nose since all this started." The patient states that her last solid meal was before and that she has lost approximately 50 to 60 pounds over the last year unintentionally but related more to decreased p.o. intake. She also endorses increased vomiting primarily with ingestion of solid food stuffs that taste foul to the patient and black stools since surgery, but again could not confirm whether or not they were black or dark. Otherwise, she denies fevers, chills, hematemesis, hematochezia, dysphagia, or odynophagia. Of note, the patient was recently admitted to the hospital in [place], [place], approximately 1.5 weeks ago and had an EGD performed at that time. The exact endoscopy report was not available for review, but mention of it was made in the discharge summary. It was stated that the patient had hiatal hernia, as well as gastric polyp that was biopsied at that time. No other abnormalities were seen during that evaluation. Upon further questioning the patient, she also states that she has had relative anosmia with relative parosmia, where most food smells are sickening to the patient and then induced nausea. REVIEW OF SYSTEMS: A 10-category review of systems was obtained with all responses negative except for the pertinent positives as listed in HPI. PAST MEDICAL HISTORY: As per HPI. PAST SURGICAL HISTORY: Coronary artery stent placement, coronary artery bypass surgery, left hemicolectomy for descending adenocarcinoma, cholecystectomy, and knee implant surgery. FAMILY HISTORY: Denies any GI malignancies. SOCIAL HISTORY: Denies any alcohol, tobacco, or illicit drug use. OUTPATIENT MEDICATIONS: Reviewed. ALLERGIES: CIPROFLOXACIN, IODINE. PHYSICAL EXAMINATION: VITAL SIGNS: Temperature 97.8, pulse 78, blood pressure 137/81, respiratory rate 16, saturating 96% on room air. GENERAL: The patient was lying in bed, in no acute distress. Alert and oriented x4. Morbidly obese. HEENT: Normocephalic, atraumatic. NECK: Supple. No scleral icterus noted. CARDIOVASCULAR: Regular rate and rhythm with occasional PACs. No discernible murmurs, gallops, or rubs. RESPIRATORY: Clear to auscultation bilaterally with no discernible wheezes or rales. ABDOMEN: Normoactive bowel sounds to hyperactive bowel sounds. Soft, nontender, and nondistended. EXTREMITIES: No cyanosis, clubbing, or edema. LABORATORY DATA: CBC from April 23 with a white blood cell count of 5.5, hemoglobin 12, hematocrit 35.8, platelets 150. Chemistry on April 22 showed a sodium of 137, potassium 3.1, chloride 101, CO2 of 19, BUN 13, creatinine 0.94, glucose 99, AST 30, ALT 24, alkaline phosphatase 67, total bilirubin 1.4. She did have a mild lactic acidosis with 2.0 on April 22. BNP on April 22 was 2876. TSH 4.86, lipase 27. IMAGING DATA: Echocardiogram obtained on April 27, 2019, showed an ejection fraction visually estimated at 10% to 15% with akinetic apex, left ventricular size was moderately increased with [id number] mitral regurgitation and mild tricuspid regurgitation. Also noted was severely dilated pulmonary artery. CT angiography was performed on April 23, 2019, which showed enlarged main pulmonary artery measuring up to 4.3 cm in diameter with emboli in the right middle and lower lobar and segmental arterial branches. Aorta was also enlarged, measuring up to 4.1 cm in diameter with significant atherosclerosis, bibasilar subsegmental atelectasis and traces of a right-sided pleural effusion were also seen, and lastly moderate cardiomegaly was also seen. CT of the abdomen and pelvis was also obtained on April 23, 2019, which showed a 4.9 cm lesion within the uterine body consistent with a heterogeneous mass in the uterus which could represent a fibroid, although malignant process cannot be excluded at this time. Otherwise, there was a heterogeneous lesion in the left adrenal gland concerning for possible adenomatous process, but otherwise did not see any other abnormalities. There was postsurgical change consistent with partial colectomy on the left side. EGD was performed on April 17, 2019, which showed the presence of a hiatal hernia as well as a gastric polyp that was biopsied at the time of the upper endoscopy (full report not available for review). ASSESSMENT AND PLAN: The patient is a 73-year-old female with past medical history of hyperlipidemia, hypertension, atrial fibrillation, coronary artery disease status post coronary artery bypass grafting, morbid obesity, gastroesophageal reflux disease, and colon cancer status post left hemicolectomy in February 2019, presenting with worsening congestive heart failure in addition to nausea, vomiting, parosmia, and dysgeusia contributing to significant weight loss. Dysgeusia/parosmia. The patient is presenting with a one year history of progressively worsening changes in both taste and smell, resulting in the patient not able to tolerate most food stuffs due to this worsening taste and decreased appetite as a result. She has lost approximately 50 to 60 pounds over the last year as a result of this condition and as of January had only been drinking primarily water with no ingested solid food stuff since then. The patient recently underwent an upper endoscopy, which was fairly negative for an etiology of her dysgeusia/parosmia. However, the patient does also endorse increased rhinorrhea that has been present for at least the last year and coincides with the changes in both taste and smell. She denies any overt head trauma, but does describe significant pressure within her sinuses concerning for either sinus disease or possible polyp. Differential could include allergic rhinitis, nasal polyps, intracranial mass near the chemoreceptor trigger zone, stroke, intracranial trauma, heavy metal poisoning or autoimmune disease including Sjogren syndrome. RECOMMENDATIONS: 1. Would place the patient on a PPI daily for possible acid reflux contributing to dysgeusia. 2. Would obtain antinuclear antibodies for possible autoimmune process contributing to her current clinical state. 3. We will order a heavy metal screen for further evaluation of possible heavy metal poisoning. 4. Would obtain an MRI of the brain to evaluate the nasal sinuses as well as any possible intracranial abnormalities. 5. Recommend optimization of her cardiac status as worsening cardiac disease could potentially generate worsening overall health. 6. Would consider using Afrin/oxymetazoline for her allergic rhinitis. 7. Would consider consultation of ENT services for further evaluation. 8. Repeat upper endoscopy is not indicated at this time. 9. Would consider pretreatment with antiemetic prior to feeds, would start with a clear liquid diet initially and advance as tolerated after that. We will continue to follow peripherally for now. Please call with any additional questions. Job ID: [id number]
--- NOTE | 2019-04-27 22:18 | CON ---
DATE OF CONSULTATION: 04/27/2019 REASON FOR CONSULTATION: I am seeing Ms. 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 Her problems are: 1. Prolonged QT interval in the setting of Multaq use and hypokalemia, also Zofran noted. 2. History of paroxysmal atrial fibrillation, on suppression with Multaq. 3. Newly found cardiomyopathy with severely reduced LVEF at 10% to 15% on echo, 04/27/2019. 4. History of coronary artery disease with remote history of stenting and subsequent bypass grafting surgery over 10 years ago. 5. History of colon cancer, status post colon surgery. 6. Morbid obesity. 7. History of hypertension. 8. Severely dilated pulmonary artery with normal right ventricular size and ventricular systolic pressures on echocardiogram. ALLERGIES: CIPRO, IODINE. MEDICATIONS: At home included dronedarone 400 mg twice a day, amoxicillin, omeprazole, potassium. SUBJECTIVE: Ms. Quintero is here with increasing fatigue and tiredness and near syncopal spells. She has difficulty to get up. She felt cold and clammy, shaky and her called EMS and brought her to the ER. She was found to have elevated D-dimer. CT was positive for PE. She has been monitored on telemetry and noted to have occasional paroxysmal atrial tachycardia/short atrial fibrillation also on getting up. Also, QT was markedly prolonged. Her potassium levels were low on admission, also noted to be low in the prior records as well. Currently, she still feels weak. She feels nauseous whenever she takes Multaq and she is giving Zofran for nausea. She is not passing out anymore. Whenever she gets anxious, she gets very dyspneic. She denies angina-like discomfort. No recent history of chronic chest pain to suggest myocardial infarction. Rest of 12-point system otherwise unremarkable. PAST MEDICAL HISTORY: As above. This lady has been previously followed in [place], [place], where her systems developer is. She also underwent EGD and colonoscopy there, some polyp removals and a moderately differentiated adenocarcinoma with some spread noted. She has a history of colon cancer surgery in the past. She also has a history of coronary artery disease as above with a stent placed and subsequent bypass surgery, possibly robotic single-vessel bypass according to her description. She has been given Multaq for years, but more recently has started not tolerating it well and getting nauseous whenever she takes it. Despite that, she has been on it. She has not had any arrhythmia ablation in the past. No prior history of reduced LVEF either. SOCIAL HISTORY: The patient is . Denies smoking, EtOH, or drug abuse. She is a former smoker though quit in . Denies drug use. FAMILY HISTORY: Not contributory. PHYSICAL EXAMINATION: VITAL SIGNS: Blood pressure is 142/100, heart rate 78, respiratory rate 16, and temperature 97.8 degrees Fahrenheit. GENERAL: This is a morbidly obese woman, in no apparent distress. NECK: Supple. Jugular veins not distended. CHEST: Coarse without crackles. HEART: Sounds are regular to rate and rhythm. No murmur or gallop. ABDOMEN: Benign. Bowel sounds are positive. Obese. EXTREMITIES: Lower extremities with 1+ edema. No clubbing or cyanosis. NEUROLOGIC: Nonfocal. MUSCULOSKELETAL: Without joint swelling or deformity. SKIN: Without rash. DATABASE: EKG is reviewed revealing today sinus rhythm, rate of 78 beats per minute, marked T-wave inversion, QTc 544 milliseconds. Prior EKGs from admission reveal sinus rhythm, QTc 627 milliseconds on the 22 of April. Telemetry strips reviewed revealing sinus rhythm with occasional PAT/atrial fibrillation runs mostly associated with ambulation. LABORATORY DATA: Potassium 3.6, but on the 3rd potassium was down to 2.9, sodium 137 on the 3rd, BUN 14, creatinine 0.9. White count is 5.5, hemoglobin 12, platelet count is 150. INR 1.0. Lower extremity, no gram negative for DVT. CT of chest from 04/23/2019 reveals no evidence of right-sided cardiac strain in right middle and lower lobe segmental arteries and large main pulmonary artery. Moderate cardiomegaly. ASSESSMENT AND PLAN: Ms. Quintero is an unfortunate 73-year-old woman with history of colon cancer and resection, coronary artery disease with remote single-vessel bypass surgery, previously preserved LVEF according to her, who presented with marked fatigue, weakness, near syncopal spells. She was found to have a small pulmonary embolism. Also, she continues to be markedly fatigued and had occasional runs of atrial arrhythmias mostly on ambulation. She has been maintaining sinus rhythm for a prolonged period of time on Multaq, but now her QT has markedly prolonged in the setting of Multaq, Zofran use, has hypokalemia. Her markedly reduced LVEF is a new finding and etiology is not entirely clear. Clearly, ischemic causes could be contributing to it and QT prolongation also could be ischemic as well. We discussed with Dr. Flynn. At this point, I would recommend stopping Multaq and I agree with adding beta iman therapy, possibly digoxin if necessary for rate control. Potassium should be corrected over 4 and I would stop Zofran as it can increase the QT intervals as well. If atrial fibrillation recurs, again rate control planned short term. Should a QT shorten, consider amiodarone if necessary. Markedly reduced LVEF. New findings, likely optimize medical management first and consider ischemic workup. If no improvement seen, long-term, echocardiogram is considered. LifeVest might need to be considered as well on discharge. Thank you again for allowing me to participate in the care of this patient. I will check on her tomorrow. Job ID: [id number]
[2019-04-27] MEDS ORDERED: Digoxin 0.5 MG/2 ML AMP ONE (22:31)
[2019-04-28 05:03] LABS: #Eosinphils 0.1 thou/uL (0.0-0.7); #Monocytes 0.3 thou/uL (0.11-0.59); #Neutrophils 2.7 thou/uL (1.40-6.50); %Basophils 1.2 % (0.0-1.0); %Eosinophils 1.7 % (0.0-10.0); %Lymphocytes 23.7 % (21.0-51.0); %Monocytes 7.6 % (0.0-10.0); %Neutrophils 65.8 % (42.0-75.0); Hemoglobin 11.5 g/dL (12.0-16.0); Mean Corpuscular Hemoglobin 27.3 pg (27.0-31.0); Mean Corpuscular Volume 88.1 fL (78.0-98.0); Mean Platelet Volume 8.2 fL (7.4-10.4); Platelet Count 152 thou/uL (130-400); RBC Distribution Width 17.8 % (11.5-14.5); White Blood Cell (WBC) Count 4.1 thou/uL (4.8-10.8)
[2019-04-28 05:20] LABS: ALT (SGPT) 10 U/L (8-55); AST (SGOT) 16 U/L (5-34); Albumin 2.5 g/dL (3.4-4.8); Alkaline Phosphatase 47 U/L (40-110); Anion Gap 12 mmol/L (10-20); BUN (Urea Nitrogen) 12 mg/dL (9.8-20.1); Bilirubin, Total 1.1 mg/dL (0.2-1.2); Calc. Creatinine Clearance 116 mL/min (70-130); Calcium 8.6 mg/dL (7.8-10.44); Carbon Dioxide 26 mmol/L (23-31); Chloride 100 mmol/L (98-107); Estimated GFR-MDRD 72; Globulin 1.9 g/dL (2.4-3.5); Glucose 70 mg/dL (83-110); Potassium 3.6 mmol/L (3.5-5.1); Protein, Total 4.4 g/dL (6.0-8.3); Sodium 134 mmol/L (136-145)
[2019-04-28] MEDS ORDERED: Potassium Chloride 20 MEQ TAB PO SCH (09:00)
[2019-04-28] MEDS ORDERED: Enoxaparin Sodium 120 MG/0.8 ML SYRINGE SC SCH (10:00)
[2019-04-28 10:30] LABS: CKMB 2.9 ng/mL (0-6.6)
[2019-04-28] MEDS: Aspirin 81 mg Enteric Coated Tablet PO SCH ×2 (10:48→11:19)
[2019-04-28] MEDS: Digoxin 0.25 MG TAB PO SCH ×2 (10:48→11:19)
[2019-04-28] MEDS: Carvedilol 3.125 MG TAB PO SCH ×3 (10:48→18:04)
[2019-04-28] MEDS: Spironolactone 25 MG TAB PO SCH ×2 (10:48→11:21)
[2019-04-28] MEDS: Megestrol Acetate 40 MG TAB PO SCH (10:50)
[2019-04-28] MEDS: Oxymetazoline HCl 0.05% (30 ML BOT) NS SCH (11:03)
[2019-04-28] MEDS: Apixaban 5 MG TAB PO SCH (11:20)
[2019-04-28] MEDS: Potassium Chloride 40 MEQ in Sodium Chloride 0.9% 250 ML 250 ML IVPB SCH ×2 (13:44→19:22)
[2019-04-28] MEDS ORDERED: predniSONE 20 MG TAB PO SCH (15:00)
[2019-04-28] MEDS ORDERED: diphenhydrAMINE 25 MG CAP PO SCH (15:00)
--- NOTE | 2019-04-28 15:27 | PRG ---
DATE OF SERVICE: 04/28/2019 REASON FOR CONSULTATION: Chronic nausea/vomiting, dysgeusia, parosmia, weight loss. SUBJECTIVE: The patient attempted to go down for the MRI of the brain this morning, but with positional changes from a lying to sitting or sitting to standing position, she experienced significant dizziness and nausea associated with that and was unable to complete the study. She was subsequently brought back upstairs and was resting comfortably in bed at the time of the evaluation. However, she is also unable to tolerate any oral medications at this time due to the significant change in her taste and increased nausea associated with the ingestion of any pills or solid food. Otherwise, she denies any vomiting, fevers, chills, hematemesis, melena, hematochezia, abdominal pain, dysphagia, or odynophagia. OBJECTIVE: VITAL SIGNS: Temperature 97.1, pulse 77, blood pressure 104/80, respiratory rate 20, saturating 100% on 2 L nasal cannula. GENERAL: The patient was lying in bed, in no acute distress. Alert and oriented x4. CARDIOVASCULAR: Regular rate and rhythm. RESPIRATORY: Clear to auscultation bilaterally. ABDOMEN: Normoactive bowel sounds. Soft, nontender, nondistended. EXTREMITIES: No cyanosis, clubbing, or edema. LABORATORY DATA: CBC with a white blood cell count of 4.1, hemoglobin of 11.5, hematocrit 37.1, platelets 152. Chemistry with a sodium of 134, potassium 3.6, chloride 100, CO2 of 26, BUN 12, creatinine 0.78, glucose 70, AST 16, ALT 10, alkaline phosphatase 47, total bilirubin 1.1, albumin 2.5. IMAGING DATA: No current GI imaging is available for review. ASSESSMENT AND PLAN: The patient is a 73-year-old female with past medical history of hyperlipidemia, hypertension, atrial fibrillation, coronary artery disease status post CABG, morbid obesity, gastroesophageal reflux disease, and colon cancer status post left hemicolectomy in February 2019, presenting with worsening congestive heart failure (ejection fraction of 10% to 15%), nausea, vomiting, parosmia, and dysgeusia contributing to significant weight loss. Dysgeusia/parosmia: The patient is presenting with a 1 year history of progressively worsening changes in both taste and smell resulting in the patient not able to tolerate most food stuffs and resulting in decreased appetite and weight loss of approximately 60 pounds over the last year. However, she states that she has been unable to tolerate any solid food intake since January 2019 with no sudden increase in weight loss velocity (incongruent with her current history), and while she recently underwent a colonoscopy in February 2019 with a resultant colon cancer, there is no objective evidence to believe that this is metastatic at this time and contributing to her current problem. The patient also underwent an upper endoscopy in March 2019 which was fairly negative for any etiology related to dysgeusia/parosmia. At this time, the differential could include allergic rhinitis, nasal polyps, intracranial mass, intracranial trauma, heavy metal poisoning, or autoimmune disease contributing to her current symptoms. RECOMMENDATIONS: 1. We will transfer the patient to 40 mg of pantoprazole from oral formulation to IV formulation given her lack of ability to tolerate oral meds. 2. Would attempt to change any oral meds to IV formulation. 3. Would follow up on serologies obtained thus far including antinuclear antibodies and heavy metal serologies. 4. Would attempt to obtain the MRI of the brain to evaluate the sinuses as well as possible intracranial abnormalities. 5. Continue optimization of her cardiac status as I think this may be at the root of a lot of the above symptoms. 6. Continue Afrin/oxymetazoline for allergic rhinitis. 7. We will consult ENT services for further evaluation. We will continue to follow peripherally until the above studies are done. Dr. Jimenez will be on-call for the patient over the weekend. Please direct any questions toward him. Job ID: [id number]
[2019-04-28] MEDS: pyridOXINE 50 MG (B6) TAB PO SCH ×2 (15:43→21:13)
--- NOTE | 2019-04-28 16:26 | PRG ---
DATE OF SERVICE: 04/28/2019 SUBJECTIVE: I am seeing Ms. Quintero at our [facility] Telemetry Floor as a followup. She seems to be doing very much the same with no new issues. She comes to be very weak, fatigued, and dyspneic on ambulation. She still has significant nausea and poor p.o. intake. Hence, she has seen a GI senior research consultant, Dr. Marroquin, yesterday as well. OBJECTIVE: VITAL SIGNS: Blood pressure is 105/58, heart rate 82, respirations . Also, the standing blood pressure is 104/80 and supine blood pressure is 105/58. GENERAL: Reveals an alert, oriented, morbidly obese woman, in no apparent distress. NECK: Supple. Jugular veins difficult to evaluate. CHEST: Coarse without crackles. HEART: Sounds are regular to rate and rhythm. No murmur or gallop. ABDOMEN: Benign. Bowel sounds positive. EXTREMITIES: Lower extremities without edema, clubbing, or cyanosis. DATABASE: Telemetry strips reviewed, revealing continued sinus rhythm with frequent PACs, MAT mostly when ambulating, otherwise steady; recurrent atrial fibrillation. Occasional PACs are noted. The QTc appears to be 550 milliseconds with QT of 480 milliseconds on the rhythm strip. No torsade like arrhythmia is seen. LABORATORY DATA: White cell count 4.21, hemoglobin 11.5, platelet count is 152. Sodium 134, potassium 3.6, BUN is 12, and creatinine 0.78. ASSESSMENT AND PLAN: 1. Ms. Quintero is a pleasant 73-year-old woman with history of coronary artery disease with remote bypass surgery, who had relatively preserved left ventricular ejection fraction in the past according to her, but has noted to be markedly fatigued, nauseous, and vomiting recently, and her echocardiogram evaluation revealed severely reduced left ventricular ejection fraction. Also, she had marked QT prolongation and T-wave inversion anteriorly. I was consulted hence history of atrial fibrillation and Multaq use and marked QT prolongation by Dr. Flynn. The QT prolongation is likely due to concomitant use of Multaq and Zofran, which were stopped. For now, she is maintaining sinus rhythm. QT prolongation is somewhat better than yesterday. Periodic assessment of QT is advised. She is also advised against QT prolonging drugs. Should the QT normalize, she may be considered for amiodarone if atrial fibrillation recurs, but for now, beta blockers and possibly digoxin are to be maximized for planned rate control. 2. CHADS-VASc score, on Eliquis, currently on hold for potential future evaluations. 3. Nausea, vomiting, and poor p.o. intake. As per Dr. Marroquin. Gastroenterology consulted. 4. Severely reduced left ventricular ejection fraction, which is per report with significant drop from before. Further ischemic evaluation as per Dr. Flynn. The patient may be considered for LifeVest on discharge and long-term if left ventricular ejection fraction does not improve. She might be benefitting from a prophylactic pacemaker defibrillator if left ventricular ejection fraction remains less than 30% on followup echocardiograms in the future. We will have to see her back as an outpatient. We will sign off. Please call us if I can be of any further help. Job ID: [id number]
--- NOTE | 2019-04-28 20:38 | PDOC.HOSPP ---
- Subjective Encounter Date: 05/01/19 Encounter Time: 09:00 Subjective: Overnight, no events. This morning, patient taken for MRI and upon rising from bed in route to MRI table, lost consciousness at around 8:40. Code alondra called , SBP reportedly 80s, wheeled back to stroke unit around 9am, then I was notified. At bedside, patient back to baseline mentation, bp 110-120s/70-80s. Endorses dizziness improved. Took EKG and trop. Asked that next time PT works with patient to contact me in order to fully assess patient's symptoms to accurately differentiate possible etiologies though most likely etiology for syncope is arrhythmia since atrial fibrillation w/ RVR was temporally correlated with presyncopal event yesterday. - Objective Vital Signs & Weight: Vital Signs (12 hours) Temp Pulse Pulse Pulse Pulse Pulse Resp 04/28/19 19:33 98.4 F 76 16 04/28/19 15:47 97.9 F 85 18 04/28/19 11:55 97.1 F L 77 20 04/28/19 11:19 86 04/28/19 10:46 86 04/28/19 08:35 80 95 82 80 Resp Resp Resp BP BP BP BP 04/28/19 19:33 04/28/19 15:47 04/28/19 11:55 04/28/19 11:19 04/28/19 10:46 04/28/19 08:35 18 18 18 105/58 L 89/57 L 115/72 109/70 BP BP Pulse Ox Pulse Ox Pulse Ox Pulse Ox 04/28/19 19:33 138/75 96 04/28/19 15:47 130/80 96 04/28/19 11:55 104/80 100 04/28/19 11:19 04/28/19 10:46 117/71 04/28/19 08:35 98 98 98 Weight Admit Weight 251 lb 5.231 oz Weight 251 lb 5.231 oz Most Recent Monitor Data Heart Rate from ECG 81 NIBP 152/91 NIBP BP-Mean 111 Respiration from ECG 16 SpO2 100 I&O: 04/27/19 04/28/19 04/29/19 06:59 06:59 06:59 Intake Total 580 Balance 580 Result Diagrams: 04/28/19 04:44 04/28/19 04:44 Additional Labs: Accuchecks 04/28/19 08:50 POC Glucose 88 Hospitalist ROS - Review of Systems Constitutional: denies: fever, chills, sweats, weakness, malaise, other Eyes: denies: vision change ENT: denies: ear pain, ear discharge Respiratory: denies: cough, dry, shortness of breath, hemoptysis, SOB with excertion, pleuritic pain, sputum, wheezing Cardiovascular: reports: palpitations, light headedness. denies: chest pain, orthopnea, paroxysmal noc. dyspnea, edema Gastrointestinal: reports: nausea, vomiting. denies: abdominal pain, diarrhea, constipation, melena, hematochezia Genitourinary: denies: dysuria, frequency, incontinence, hematuria - Medication Medications: Active Medications Generic Name Dose Route Start Last Admin Trade Name Freq PRN Reason Stop Dose Admin Aspirin 81 mg 04/28/19 09:00 04/28/19 11:19 Ecotrin PO Not Given DAILY BENJY Atorvastatin Calcium 40 mg 04/27/19 21:00 04/27/19 20:42 Lipitor PO 40 mg HS BENJY Administration Carvedilol 3.125 mg 04/27/19 17:00 04/28/19 18:04 Coreg PO 3.125 mg BID-WM BENJY Administration Digoxin 0.25 mg 04/28/19 09:00 04/28/19 11:19 Lanoxin PO Not Given QAM BENJY Potassium Chloride 40 meq/ 270 mls @ 67.5 mls/hr 04/28/19 13:00 04/28/19 19: 22 Sodium Chloride IVPB 04/28/19 20:59 270 mls Q4HR BENJY Administration Megestrol Acetate 40 mg 04/28/19 09:00 04/28/19 10:50 Megace PO Not Given DAILY BENJY Oxymetazoline HCl 0 ml 04/28/19 09:00 04/28/19 11:03 Nasal Decongestant NS Not Given DAILY BENJY Pyridoxine HCl 50 mg 04/28/19 15:00 04/28/19 15:43 Vitamin B 6 PO 50 mg TID BENJY Administration Sacubitril/Valsartan 1 tab 04/27/19 21:00 04/28/19 11:19 Entresto 24 Mg-26 Mg Tablet PO Not Given BID BENJY Sodium Chloride 10 ml 04/24/19 03:18 04/27/19 20:41 Normal Saline Pf FS 10 ml PRN PRN Administration RECONSTITUTION Spironolactone 25 mg 04/28/19 08:00 04/28/19 11:21 Aldactone PO Not Given QAM- BENJY - Exam General Appearance: awake alert, ill appearing General - other findings: drowsy ENT: moist mucosa Neck: no JVD Heart: RRR, no gallops, no rubs Heart - other findings: sinus rhythm on telemetry Respiratory: CTAB, no wheezes, no rales, no ronchi Gastrointestinal: soft, non-tender, non-distended, normal bowel sounds Extremities: no edema Neurological: cranial nerve grossly intact, no focal deficits Psychiatric: normal affect, normal behavior, A&O x 3 Hosp A/P - Plan * Syncope * paroxysmal symptomatic atrial fibrillation w/ RVR * prolonged QTc * temporally correlated two aforementioned (04/26) * code green 04/27: syncope when rising up from bed in route to MRI machine * * Should be continuously telemonitored at all times * advise to limit movement unless necessary until cardiac issues better controlled * requested to page me when PT works with patient (assuming patient improves) to examine patient while moving * EP and cardiology onboard; appreciate recs * optimized medications to limit effects on QT duration * keep Mg > 2, K > 4 * CHFrEF IIIc * echo 10-15%; * cardiology onboard; medical optimization underway * * Right lung lobar and segmental PE * on eliquis * colon cancer * loss of appetite * N/V * could also be due to HF and other comorbidities * attempted to give appetite stimulant however, continues to N/V * avoiding QTc prolonging agents such as zofran, phenergan * * started on vitamin B6 oral if can tolerate to reduce N/V without effect on QT duration * transitioned medications to IV * KUB in AM since patient endorses constipation, which may contribute to N/V * * rest of management per consulted services
[2019-04-28] MEDS: Enoxaparin Sodium 120 MG/0.8 ML SYRINGE SC SCH (21:13)
[2019-04-28] MEDS: Atorvastatin Calcium 40 MG TAB PO SCH (21:13)
[2019-04-28] MEDS: Famotidine 20 MG TAB PO SCH (21:13)
[2019-04-29 03:13] LABS: Hemoglobin 10.9 g/dL (12.0-16.0); Platelet Count 126 thou/uL (130-400)
[2019-04-29 03:47] LABS: Calc. Creatinine Clearance 113 mL/min (70-130); Estimated GFR-MDRD 70; Magnesium 1.6 mg/dL (1.6-2.6); Potassium 4.9 mmol/L (3.5-5.1)
[2019-04-29] MEDS: pyridOXINE 50 MG (B6) TAB PO SCH ×3 (08:57→21:41)
[2019-04-29] MEDS: Carvedilol 3.125 MG TAB PO SCH ×2 (08:57→17:25)
[2019-04-29] MEDS: Pantoprazole 40 MG VIAL IVP SCH (08:57)
[2019-04-29] MEDS: Digoxin 0.25 MG TAB PO SCH (08:57)
[2019-04-29] MEDS: Aspirin 81 mg Enteric Coated Tablet PO SCH (08:57)
[2019-04-29] MEDS: Famotidine 20 MG TAB PO SCH ×2 (08:57→21:41)
[2019-04-29] MEDS: Spironolactone 25 MG TAB PO SCH (08:57)
[2019-04-29] MEDS: Sodium Chloride 0.9% (PF) 10 ML VIAL FS PRN (08:57)
[2019-04-29] MEDS: Enoxaparin Sodium 120 MG/0.8 ML SYRINGE SC SCH ×2 (08:58→21:42)
--- NOTE | 2019-04-29 12:41 | MRI ---
MRI BRAIN WITH AND WITHOUT IV CONTRAST: HISTORY: Chronic dysgeusia, syncope, nausea, vomiting, anosmia COMPARISON: None CORRELATION: None FINDINGS: No restricted diffusion is seen. No evidence of infarct, hemorrhage, mass, midline shift or abnormal extra-axial fluid collections is noted. No abnormal postcontrast enhancement is seen. The ventricular size is appropriate and the basilar cisterns are patent. The visualized paranasal sinuses and mastoid air cells are well aerated. IMPRESSION: No evidence of acute intracranial process or mass.
--- NOTE | 2019-04-29 13:27 | PDOC.HOSPP ---
- Subjective Encounter Date: 04/29/19 Encounter Time: 09:00 Subjective: No BM, stable, spouse at bedside. Phys. therapy at bedside. afebrile. - Objective Vital Signs & Weight: Vital Signs (12 hours) Temp Pulse Resp BP BP Pulse Ox 04/29/19 11:45 98.4 F 71 14 150/87 H 96 04/29/19 08:57 76 16 L 04/29/19 07:41 97.7 F 76 16 120/79 97 04/29/19 03:26 98.6 F 67 16 159/65 H 95 Weight Admit Weight 251 lb 5.231 oz Weight 251 lb 5.231 oz Most Recent Monitor Data Heart Rate from ECG 81 NIBP 152/91 NIBP BP-Mean 111 Respiration from ECG 16 SpO2 100 I&O: 04/28/19 04/29/19 04/30/19 06:59 06:59 07:59 Intake Total 580 300 Balance 580 300 Result Diagrams: 04/29/19 03:08 04/29/19 03:08 Hospitalist ROS - Medication Medications: Active Medications Generic Name Dose Route Start Last Admin Trade Name Freq PRN Reason Stop Dose Admin Aspirin 81 mg 04/28/19 09:00 04/29/19 08:57 Ecotrin PO 81 mg DAILY BENJY Administration Atorvastatin Calcium 40 mg 04/27/19 21:00 04/28/19 21:13 Lipitor PO 40 mg HS BENJY Administration Carvedilol 3.125 mg 04/27/19 17:00 04/29/19 08:57 Coreg PO 3.125 mg BID-WM BENJY Administration Digoxin 0.25 mg 04/28/19 09:00 04/29/19 08:57 Lanoxin PO 0.25 mg QAM BENJY Administration Enoxaparin Sodium 110 mg 04/28/19 21:00 04/29/19 08:58 Lovenox SC 110 mg 0900,2100 BENJY Administration Famotidine 20 mg 04/28/19 21:00 04/29/19 08:57 Pepcid PO 20 mg BID BENJY Administration Megestrol Acetate 40 mg 04/28/19 09:00 04/28/19 10:50 Megace PO Not Given DAILY BENJY Oxymetazoline HCl 0 ml 04/28/19 09:00 04/28/19 11:03 Nasal Decongestant NS Not Given DAILY BENJY Pantoprazole Sodium 40 mg 04/29/19 09:00 04/29/19 08:57 Protonix IVP 40 mg DAILY BENJY Administration Pyridoxine HCl 50 mg 04/28/19 15:00 04/29/19 08:57 Vitamin B 6 PO 50 mg TID BENJY Administration Sacubitril/Valsartan 1 tab 04/27/19 21:00 04/29/19 08:57 Entresto 24 Mg-26 Mg Tablet PO 1 tab BID BENJY Administration Sodium Chloride 10 ml 04/24/19 03:18 04/29/19 08:57 Normal Saline Pf FS 10 ml PRN PRN Administration RECONSTITUTION Spironolactone 25 mg 04/28/19 08:00 04/29/19 08:57 Aldactone PO 25 mg QAM-WM BENJY Administration - Exam General Appearance: NAD, awake alert, ill appearing General - other findings: obese ENT: normocephalic atraumatic Neck: supple Heart: RRR Respiratory: CTAB Gastrointestinal: normal bowel sounds Extremities: 1+ LE edema Neurological: cranial nerve grossly intact Hosp A/P - Plan * Syncope * paroxysmal symptomatic atrial fibrillation w/ RVR * prolonged QTc * temporally correlated * code green 04/27: syncope when rising up from bed in route to MRI machine * close tele monitor d/t fall risk a/w syncope * EP and cardiology onboard; appreciate recs * optimized medications to limit effects on QT duration * keep Mg > 2, K > 4 * CHFrEF IIIc * Iscehimic CMY * echo 10-15%; * cardiology onboard * * Right lung lobar and segmental PE * on eliquis * colon cancer * poor appetite * N/V * could also be due to HF and other comorbidities * attempted to give appetite stimulant however, continues to N/V * avoiding QTc prolonging agents such as zofran, phenergan * * started on vitamin B6 oral if can tolerate to reduce N/V without effect on QT duration * transitioned medications to IV * KUB in AM since patient endorses constipation, which may contribute to N/V * * MRI - no intracranial abn'ty constipation * -will fw w.. abd xray in am, as it appears not done. * * rest of management per consulted services
[2019-04-29] MEDS: Oxymetazoline HCl 0.05% (30 ML BOT) NS SCH (13:38)
--- NOTE | 2019-04-29 14:43 | RAD ---
EXAM: KUB PROVIDED CLINICAL HISTORY: Abdominal distention COMPARISON: None FINDINGS: The supine nature the examination is not sensitive for detection of pneumoperitoneum. Bowel gas patte rn is nonspecific. No radiographically apparent urinary tract calculi. Surgical clips right upper quadrant. Degenerative changes lumbar spine. IMPRESSION: Nonspecific bowel gas pattern.
[2019-04-29] MEDS: Dextrose 5 %-0.45 % NaCl 1,000 ML IV SCH (17:25)
--- NOTE | 2019-04-29 19:46 | PRG ---
DATE OF SERVICE: 04/29/2019 This is a cross coverage for Dr. Harley Marroquin. SUBJECTIVE: Ms. Ana Quintero is unfortunate 73-year-old female, multiple medical problems including recent colon cancer surgery, atrial fibrillation with fast ventricular rate, pulmonary embolism. She was seen by Dr. Harley Marroquin, because of loss of taste and loss of smell, anorexia. The patient had EGD done out and was found be normal. She is being seen by Cardiology because for cardiac arrhythmia. An MRI was ordered because of possibility of pathology in the brain or some sinus problem. However, the MRI of the head shows no pathology. Her symptoms remained unchanged. OBJECTIVE: VITAL SIGNS: Afebrile, pulse is 71, blood pressure 150/87. CARDIOVASCULAR AND LUNGS: Within normal limits. ABDOMEN: Soft. No organomegaly. No tenderness. No masses. RECOMMENDATIONS: 1. Continue supportive care. 2. We will sign off from today. If there are any new problems, please call us back. Job ID: [id number] [id number]
--- NOTE | 2019-04-29 20:58 | PDOC.CPN ---
- Subjective Date: 04/29/19 Time: 20:55 Interval history: No new issues. No angina. - Review of Systems General: denies: fever/chills, weight/appetite/sleep changes, night sweats, fatigue Respiratory: denies: cough, congestion, shortness of breath, exercise intolerance Cardiovascular: denies: chest pain, palpitation, edema, paroxysmal nocturnal dyspnea, orthopnea - Objective Allergies/Adverse Reactions: Allergies Allergy/AdvReac Type Severity Reaction Status Date / Time ciprofloxacin [From Cipro] Allergy Verified 04/24/19 08:48 Iodine and Iodide Containing Allergy Verified 04/24/19 08:48 Produc Visit Medications: Current Medications Acetaminophen (Tylenol) 650 mg PO Q4H PRN PRN Reason: Headache/Fever/Mild Pain (1-3) Aspirin (Ecotrin) 81 mg PO DAILY [facility] Last Admin: 04/29/19 08:57 Dose: 81 mg Atorvastatin Calcium (Lipitor) 40 mg PO HS [facility] Last Admin: 04/28/19 21:13 Dose: 40 mg Carvedilol (Coreg) 3.125 mg PO BID-[facility] Last Admin: 04/29/19 17:25 Dose: 3.125 mg Digoxin (Lanoxin) 0.25 mg PO QAM [facility] Last Admin: 04/29/19 08:57 Dose: 0.25 mg Diphenhydramine HCl (Benadryl) 25 mg PO TID [facility] Enoxaparin Sodium (Lovenox) 110 mg SC 0900,2100 [facility] Last Admin: 04/29/19 08:58 Dose: 110 mg Famotidine (Pepcid) 20 mg PO BID [facility] Last Admin: 04/29/19 08:57 Dose: 20 mg Hydralazine HCl (Apresoline) 10 mg SLOW IVP Q4H PRN PRN Reason: SBP > 180 and HR < 70 Dextrose/Sodium Chloride (D5 1/2 Ns) 1,000 mls @ 50 mls/hr IV .Q20H [facility] Last Admin: 04/29/19 17:25 Dose: 1,000 mls Megestrol Acetate (Megace) 40 mg PO DAILY [facility] Last Admin: 04/28/19 10:50 Dose: Not Given Miscellaneous Information (Communication Order-Pharmacy) 0 each FS ONE [facility] Stop: 05/01/19 21:00 Oxymetazoline HCl (Nasal Decongestant) 0 ml NS DAILY [facility] Last Admin: 04/29/19 13:38 Dose: 30 ml Pantoprazole Sodium (Protonix) 40 mg IVP DAILY [facility] Last Admin: 04/29/19 08:57 Dose: 40 mg Prednisone (Prednisone) 20 mg PO TID [facility] Pyridoxine HCl (Vitamin B 6) 50 mg PO TID [facility] Last Admin: 04/29/19 15:11 Dose: 50 mg Sacubitril/Valsartan (Entresto 24 Mg-26 Mg Tablet) 1 tab PO BID [facility] Last Admin: 04/29/19 08:57 Dose: 1 tab Sodium Chloride (Normal Saline Pf) 10 ml FS PRN PRN PRN Reason: RECONSTITUTION Last Admin: 04/29/19 08:57 Dose: 10 ml Spironolactone (Aldactone) 25 mg PO QAM-WM [facility] Last Admin: 04/29/19 08:57 Dose: 25 mg Vital Signs & Weight: Vital Signs Temp Pulse Resp BP BP Pulse Ox 04/29/19 19:46 98.4 F 62 14 143/81 H 96 04/29/19 17:38 67 164/73 H 04/29/19 15:20 97.7 F 69 16 148/97 H 96 04/29/19 11:45 98.4 F 71 14 150/87 H 96 04/29/19 08:57 76 16 L Admit Weight 251 lb 5.231 oz Weight 251 lb 5.231 oz - Physical Exam General: alert & oriented x3 HEENT: mucus membranes moist Neck: supple neck Cardiac: regular rate and rhythm Lungs: normal breath sounds Neuro: grossly intact Abdomen: active bowel sounds Extremities: 1+ LE edema Skin: clear Musculoskeletal: no pain - Labs Result Diagrams: 04/29/19 03:08 04/29/19 03:08 Troponin/CKMB CK-MB (CK-2) 2.9 ng/mL (0-6.6) 04/28/19 09:25 Troponin I 0.133 ng/mL (< 0.028) H 04/28/19 09:25 - Telemetry Sinus rhythms and dysrhythmias: sinus rhythm - Assessment/Plan Assessment/Plan: 1. Dilated cardiomyoathy EF at 10-15% 2. Colon Ca s/p colon resection Feb 2019 3. Pulmonary embolism. 4. Large pulmonary artery 5. CAD s/p single vessel bypass. 6. Hx of Afib PLAN: - Continue full anticoagulation. - [facility] wednesday to assess ischemic burden. - Cannot use multaq due to LV dysfunction. - Will need lifevest on discharge.
[2019-04-29] MEDS: Atorvastatin Calcium 40 MG TAB PO SCH (21:41)
[2019-04-30] MEDS: Digoxin 0.25 MG TAB PO SCH (09:54)
[2019-04-30] MEDS: Carvedilol 3.125 MG TAB PO SCH ×2 (09:54→17:30)
[2019-04-30] MEDS: diphenhydrAMINE 25 MG CAP PO SCH ×3 (09:54→20:34)
[2019-04-30] MEDS: Spironolactone 25 MG TAB PO SCH (09:55)
[2019-04-30] MEDS: Oxymetazoline HCl 0.05% (30 ML BOT) NS SCH (09:55)
[2019-04-30] MEDS: Enoxaparin Sodium 120 MG/0.8 ML SYRINGE SC SCH ×2 (09:56→20:34)
[2019-04-30] MEDS: Pantoprazole 40 MG VIAL IVP SCH (09:57)
[2019-04-30] MEDS: predniSONE 20 MG TAB PO SCH ×3 (11:11→20:35)
[2019-04-30] MEDS: Aspirin 81 mg Enteric Coated Tablet PO SCH (11:11)
[2019-04-30] MEDS: pyridOXINE 50 MG (B6) TAB PO SCH ×3 (11:11→20:35)
[2019-04-30] MEDS: Famotidine 20 MG TAB PO SCH ×2 (11:11→20:35)
--- NOTE | 2019-04-30 14:53 | PDOC.HOSPP ---
- Subjective Encounter Date: 04/30/19 Encounter Time: 09:45 Subjective: Getting antiemetics. Not able to have any po intake including pleasure foods. options of nutrition d/w pt -- incl.. TPN and pros and cons of TPN. pt feels not upto it. Trial of megace failed in the past. Cath in am. Palliative c/s placed. - Objective Vital Signs & Weight: Vital Signs (12 hours) Temp Pulse Resp BP Pulse Ox 04/30/19 11:42 98.8 F 74 16 152/90 H 97 04/30/19 09:54 63 04/30/19 09:40 97 04/30/19 07:49 97.6 F 63 20 184/71 H 97 04/30/19 04:00 98.5 F 76 16 175/86 H 95 Weight Admit Weight 251 lb 5.231 oz Weight 251 lb 5.231 oz Most Recent Monitor Data Heart Rate from ECG 81 NIBP 152/91 NIBP BP-Mean 111 Respiration from ECG 16 SpO2 100 I&O: 04/29/19 04/30/19 05/01/19 05:59 06:59 06:59 Intake Total Output Total Balance Result Diagrams: 04/29/19 03:08 04/29/19 03:08 Hospitalist ROS - Medication Medications: Active Medications Generic Name Dose Route Start Last Admin Trade Name Segundoq PRN Reason Stop Dose Admin Aspirin 81 mg 04/28/19 09:00 04/30/19 11:11 Ecotrin PO 81 mg DAILY [facility] Administration Atorvastatin Calcium 40 mg 04/27/19 21:00 04/29/19 21:41 Lipitor PO 40 mg HS [facility] Administration Carvedilol 3.125 mg 04/27/19 17:00 04/30/19 09:54 Coreg PO 3.125 mg BID-WM [facility] Administration Digoxin 0.25 mg 04/28/19 09:00 04/30/19 09:54 Lanoxin PO 0.25 mg QAM [facility] Administration Diphenhydramine HCl 25 mg 04/30/19 09:00 04/30/19 09:54 Benadryl PO 25 mg TID [facility] Administration Enoxaparin Sodium 110 mg 04/28/19 21:00 04/30/19 09:56 Lovenox SC 110 mg 0900,2100 [facility] Administration Famotidine 20 mg 04/28/19 21:00 04/30/19 11:11 Pepcid PO 20 mg BID [facility] Administration Megestrol Acetate 40 mg 04/28/19 09:00 04/28/19 10:50 Megace PO Not Given DAILY [facility] Oxymetazoline HCl 0 ml 04/28/19 09:00 04/30/19 09:55 Nasal Decongestant NS Not Given DAILY [facility] Pantoprazole Sodium 40 mg 04/29/19 09:00 04/30/19 09:57 Protonix IVP 40 mg DAILY [facility] Administration Prednisone 20 mg 04/30/19 09:00 04/30/19 11:11 Prednisone PO 20 mg TID [facility] Administration Pyridoxine HCl 50 mg 04/28/19 15:00 04/30/19 11:11 Vitamin B 6 PO 50 mg TID [facility] Administration Sacubitril/Valsartan 1 tab 04/27/19 21:00 04/30/19 09:55 Entresto 24 Mg-26 Mg Tablet PO 1 tab BID [facility] Administration Sodium Chloride 10 ml 04/24/19 03:18 04/29/19 08:57 Normal Saline Pf FS 10 ml PRN PRN Administration RECONSTITUTION Spironolactone 25 mg 04/28/19 08:00 04/30/19 09:55 Aldactone PO 25 mg QAM-WM [facility] Administration - Exam General Appearance: NAD Eye: PERRL ENT: normocephalic atraumatic Neck: supple Heart: RRR Respiratory: CTAB Gastrointestinal: soft, non-distended Skin: normal turgor Neurological: cranial nerve grossly intact, no focal deficits Hosp A/P - Plan * Syncope * paroxysmal symptomatic atrial fibrillation w/ RVR * prolonged QTc * temporally correlated * code green 04/27: syncope when rising up from bed in route to MRI machine * close tele monitor d/t fall risk a/w syncope * EP and cardiology onboard; appreciate recs * optimized medications to limit effects on QT duration * keep Mg > 2, K > 4 * CHFrEF IIIc * Iscehimic CMY * echo 10-15%; * cardiology onboard * * Right lung lobar and segmental PE * on eliquis * colon cancer * poor appetite * N/V * could also be due to HF and other comorbidities * avoiding QTc prolonging agents such as zofran, phenergan * started on vitamin B6 oral if can tolerate to reduce N/V without effect on QT duration * transitioned medications to IV * KUB i--7th - Nonspecific bowel gas pattern * MRI - no intracranial abn'ty Not able to have any po intake including pleasure foods. options of nutrition d/ w pt -- incl.. TPN and pros and cons of TPN. pt feels not upto it. Trial of megace failed in the past. Cath in am. Palliative c/s placed. *
[2019-04-30] MEDS: Dextrose 5 %-0.45 % NaCl 1,000 ML IV SCH (15:30)
--- NOTE | 2019-04-30 18:16 | PDOC.CPN ---
- Subjective Date: 04/30/19 Time: 18:15 Interval history: No new issues. No chest pain. - Review of Systems General: denies: fever/chills, weight/appetite/sleep changes, night sweats, fatigue Respiratory: denies: cough, congestion, shortness of breath, exercise intolerance Cardiovascular: denies: chest pain, palpitation, edema, paroxysmal nocturnal dyspnea, orthopnea Gastrointestinal: denies: nausea, vomiting, diarrhea, constipation, abd pain, GI bleeding Musculoskeletal: denies: pain, tenderness, stiffness, swelling, arthritis/ arthralgias Neurological: denies: numbness, syncope, seizure, weakness - Objective Allergies/Adverse Reactions: Allergies Allergy/AdvReac Type Severity Reaction Status Date / Time ciprofloxacin [From Cipro] Allergy Verified 04/24/19 08:48 Iodine and Iodide Containing Allergy Verified 04/24/19 08:48 Produc Visit Medications: Current Medications Acetaminophen (Tylenol) 650 mg PO Q4H PRN PRN Reason: Headache/Fever/Mild Pain (1-3) Aspirin (Ecotrin) 81 mg PO DAILY [facility] Last Admin: 04/30/19 11:11 Dose: 81 mg Atorvastatin Calcium (Lipitor) 40 mg PO HS [facility] Last Admin: 04/29/19 21:41 Dose: 40 mg Carvedilol (Coreg) 3.125 mg PO BID-WM [facility] Last Admin: 04/30/19 17:30 Dose: Not Given Digoxin (Lanoxin) 0.25 mg PO QAM [facility] Last Admin: 04/30/19 09:54 Dose: 0.25 mg Diphenhydramine HCl (Benadryl) 25 mg PO TID [facility] Last Admin: 04/30/19 15:27 Dose: 25 mg Enoxaparin Sodium (Lovenox) 110 mg SC 0900,2100 [facility] Last Admin: 04/30/19 09:56 Dose: 110 mg Famotidine (Pepcid) 20 mg PO BID [facility] Last Admin: 04/30/19 11:11 Dose: 20 mg Hydralazine HCl (Apresoline) 10 mg SLOW IVP Q4H PRN PRN Reason: SBP > 180 and HR < 70 Sodium Chloride (Normal Saline 0.9%) 1,000 mls @ 25 mls/hr IV .Q24H [facility] Megestrol Acetate (Megace) 40 mg PO DAILY [facility] Last Admin: 04/28/19 10:50 Dose: Not Given Miscellaneous Information (Communication Order-Pharmacy) 0 each FS ONE [facility] Stop: 05/01/19 21:00 Oxymetazoline HCl (Nasal Decongestant) 0 ml NS DAILY [facility] Last Admin: 04/30/19 09:55 Dose: Not Given Pantoprazole Sodium (Protonix) 40 mg IVP DAILY [facility] Last Admin: 04/30/19 09:57 Dose: 40 mg Prednisone (Prednisone) 20 mg PO TID [facility] Last Admin: 04/30/19 15:27 Dose: 20 mg Pyridoxine HCl (Vitamin B 6) 50 mg PO TID [facility] Last Admin: 04/30/19 15:27 Dose: 50 mg Sacubitril/Valsartan (Entresto 24 Mg-26 Mg Tablet) 1 tab PO BID [facility] Last Admin: 04/30/19 09:55 Dose: 1 tab Sodium Chloride (Normal Saline Pf) 10 ml FS PRN PRN PRN Reason: RECONSTITUTION Last Admin: 04/29/19 08:57 Dose: 10 ml Spironolactone (Aldactone) 25 mg PO QAM-WM [facility] Last Admin: 04/30/19 09:55 Dose: 25 mg Vital Signs & Weight: Vital Signs Temp Pulse Resp BP Pulse Ox 04/30/19 15:33 97.6 F 79 16 166/96 H 97 04/30/19 11:42 98.8 F 74 16 152/90 H 97 04/30/19 09:54 63 04/30/19 09:40 97 04/30/19 07:49 97.6 F 63 20 184/71 H 97 Admit Weight 251 lb 5.231 oz Weight 251 lb 5.231 oz - Physical Exam General: no apparent distress HEENT: mucus membranes moist Neck: supple neck Cardiac: regular rate and rhythm Lungs: normal breath sounds Neuro: grossly intact Abdomen: active bowel sounds Extremities: 1+ LE edema Skin: clear Musculoskeletal: no pain - Labs Result Diagrams: 04/29/19 03:08 04/29/19 03:08 Troponin/CKMB CK-MB (CK-2) 2.9 ng/mL (0-6.6) 04/28/19 09:25 Troponin I 0.133 ng/mL (< 0.028) H 04/28/19 09:25 - Telemetry Sinus rhythms and dysrhythmias: sinus rhythm - Assessment/Plan Assessment/Plan: 1. Dilated cardiomyoathy EF at 10-15% 2. Colon Ca s/p colon resection Feb 2019 3. Pulmonary embolism. 4. Large pulmonary artery 5. CAD s/p single vessel bypass. 6. Hx of Afib PLAN: - Continue full anticoagulation. - [facility] Tomorrow to assess ischemic burden. - Cannot use multaq due to LV dysfunction. - Will need lifevest on discharge. - Dr. Flynn to follow tomorrow.
[2019-04-30] MEDS: Atorvastatin Calcium 40 MG TAB PO SCH (20:34)
[2019-04-30] MEDS: Sodium Chloride 0.9% 1,000 ML IV SCH (23:57)
[2019-05-01 03:06] LABS: Hemoglobin 12.3 g/dL (12.0-16.0); Platelet Count 94 thou/uL (130-400)
[2019-05-01 03:17] LABS: Anion Gap 17 mmol/L (10-20); BUN (Urea Nitrogen) 10 mg/dL (9.8-20.1); Calc. Creatinine Clearance 116 mL/min (70-130); Calcium 8.6 mg/dL (7.8-10.44); Carbon Dioxide 20 mmol/L (23-31); Chloride 99 mmol/L (98-107); Estimated GFR-MDRD 72; Glucose 116 mg/dL (83-110); Sodium 131 mmol/L (136-145)
[2019-05-01] MEDS: diphenhydrAMINE 25 MG CAP PO SCH (05:24)
[2019-05-01] MEDS: Carvedilol 3.125 MG TAB PO SCH ×2 (05:24→17:20)
[2019-05-01] MEDS: Digoxin 0.25 MG TAB PO SCH (05:25)
[2019-05-01 05:31] LABS: Hemoglobin 12.2 g/dL (12.0-16.0); Lymphocytes 9 % (21-51); MDiff Complete? YES; Mean Corpuscular HGB CONC 32.5 g/dL (32.0-36.0); Mean Corpuscular Hemoglobin 28.7 pg (27.0-31.0); Mean Corpuscular Volume 88.2 fL (78.0-98.0); Mean Platelet Volume 9.4 fL (7.4-10.4); Monocytes 3 % (0-10); Neutrophil 88 % (42-75); Platelet Count 148 thou/uL (130-400); Platelet Morphology Comment Appears Adequate; RBC Distribution Width 17.3 % (11.5-14.5); RBC Morphology Normal; Red Blood Cell (RBC) Count 4.24 mill/uL (4.20-5.40); White Blood Cell (WBC) Count 4.2 thou/uL (4.8-10.8)
[2019-05-01] MEDS ORDERED: Lidocaine 1% (PF) 30 ML VIAL ONE (06:49)
[2019-05-01] MEDS: Enoxaparin Sodium 120 MG/0.8 ML SYRINGE SC SCH (07:46)
[2019-05-01] MEDS: Spironolactone 25 MG TAB PO SCH (07:46)
[2019-05-01] MEDS: Aspirin 81 mg Enteric Coated Tablet PO SCH (07:46)
[2019-05-01] MEDS: Oxymetazoline HCl 0.05% (30 ML BOT) NS SCH (07:47)
[2019-05-01] MEDS: predniSONE 20 MG TAB PO SCH (07:47)
[2019-05-01] MEDS: Famotidine 20 MG TAB PO SCH ×2 (07:47→22:51)
[2019-05-01] MEDS: pyridOXINE 50 MG (B6) TAB PO SCH ×3 (07:48→22:51)
[2019-05-01] MEDS ORDERED: Midazolam HCl 2 mg/2 ml Vial ONE (08:02)
[2019-05-01] MEDS ORDERED: Sodium Chloride 0.9% 200 ML IV PRN (08:34)
[2019-05-01] MEDS ORDERED: Acetaminophen/Codeine 30-300mg Tablet PO PRN ×2 (08:34)
[2019-05-01] MEDS ORDERED: Nitroglycerin 0.4 MG TAB (25 Tab Bottle) SL PRN (08:34)
[2019-05-01] MEDS ORDERED: Communication Order-Pharmacy FS SCH (10:00)
[2019-05-01] MEDS: Pantoprazole 40 MG VIAL IVP SCH (10:57)
[2019-05-01] MEDS: Sodium Chloride 0.9% (PF) 10 ML VIAL FS PRN (10:57)
[2019-05-01] MEDS: NS 0.9% w/ 20 MEQ KCL 1,000 ML/1,000 ML BAG IV SCH (12:14)
--- NOTE | 2019-05-01 12:59 | PDOC.HOSPP ---
- Subjective Encounter Date: 05/01/19 Encounter Time: : Subjective: s/p cath; EF 30%; report pending; talk to spouse at length, at to the shade bander and RN. will provide PPN. pt looks quite fatigued. - Objective Vital Signs & Weight: Vital Signs (12 hours) Temp Pulse Resp BP BP Pulse Ox 05/01/19 11:38 72 16 120/76 97 05/01/19 08:00 95 05/01/19 03:26 98.3 F 84 16 128/96 H 96 Weight Admit Weight 251 lb 5.231 oz Weight 253 lb Most Recent Monitor Data Heart Rate from ECG 81 NIBP 152/91 NIBP BP-Mean 111 Respiration from ECG 16 SpO2 100 I&O: 04/30/19 05/01/19 05/02/19 06:59 06:59 06:59 Intake Total 1422.5 Output Total 1275 Balance 147.5 Result Diagrams: 05/01/19 04:31 05/01/19 02:58 Hospitalist ROS - Medication Medications: Active Medications Generic Name Dose Route Start Last Admin Trade Name Freq PRN Reason Stop Dose Admin Aspirin 81 mg 04/28/19 09:00 05/01/19 07:46 Ecotrin PO Not Given DAILY [facility] Atorvastatin Calcium 40 mg 04/27/19 21:00 04/30/19 20:34 Lipitor PO 40 mg HS [facility] Administration Carvedilol 3.125 mg 04/27/19 17:00 05/01/19 05:24 Coreg PO 3.125 mg BID-WM [facility] Administration Digoxin 0.25 mg 04/28/19 09:00 05/01/19 05:25 Lanoxin PO 0.25 mg QAM [facility] Administration Enoxaparin Sodium 110 mg 04/28/19 21:00 05/01/19 07:46 Lovenox SC Not Given 0900,2100 [facility] Famotidine 20 mg 04/28/19 21:00 05/01/19 07:47 Pepcid PO Not Given BID [facility] Sodium Chloride 1,000 mls @ 25 mls/hr 05/01/19 00:01 04/30/19 23:57 Normal Saline 0.9% IV 1,000 mls .Q24H [facility] Administration Potassium Chloride/Sodium Chloride 1,000 ml in 1,000 mls @ 75 mls/hr 05/01/19 10:30 05/01/19 12:14 Ns 0.9% W/ 20 Meq Kcl IV 1,000 mls .[id number] [facility] Administration Megestrol Acetate 40 mg 04/28/19 09:00 04/28/19 10:50 Megace PO Not Given DAILY [facility] Oxymetazoline HCl 0 ml 04/28/19 09:00 05/01/19 07:47 Nasal Decongestant NS Not Given DAILY [facility] Pantoprazole Sodium 40 mg 04/29/19 09:00 05/01/19 10:57 Protonix IVP 40 mg DAILY [facility] Administration Pyridoxine HCl 50 mg 04/28/19 15:00 05/01/19 07:48 Vitamin B 6 PO Not Given TID [facility] Sacubitril/Valsartan 1 tab 04/27/19 21:00 05/01/19 07:48 Entresto 24 Mg-26 Mg Tablet PO Not Given BID [facility] Sodium Chloride 10 ml 04/24/19 03:18 05/01/19 10:57 Normal Saline Pf FS 10 ml PRN PRN Administration RECONSTITUTION Spironolactone 25 mg 04/28/19 08:00 05/01/19 07:46 Aldactone PO Not Given QAM-WM [facility] - Exam General Appearance: NAD, awake alert Eye: PERRL ENT: normocephalic atraumatic Neck: supple Heart: RRR Respiratory: CTAB, normal chest expansion Gastrointestinal: soft, non-tender, normal bowel sounds Neurological: cranial nerve grossly intact, no focal deficits Hosp A/P - Plan * Syncope * paroxysmal symptomatic atrial fibrillation w/ RVR * prolonged QTc * temporally correlated * code green 04/27: syncope when rising up from bed in route to MRI machine * close tele monitor d/t fall risk a/w syncope * EP and cardiology onboard; appreciate recs * optimized medications to limit effects on QT duration * keep Mg > 2, K > 4 * CHFrEF IIIc * Iscehimic CMY * echo 10-15%; * cardiology onboard * * Right lung lobar and segmental PE * on eliquis * colon cancer * poor appetite * N/V * could also be due to HF and other comorbidities * avoiding QTc prolonging agents such as zofran, phenergan * started on vitamin B6 oral if can tolerate to reduce N/V without effect on QT duration * transitioned medications to IV * KUB i--7th - Nonspecific bowel gas pattern * MRI - no intracranial abn'ty Not able to have any po intake including pleasure foods. options of nutrition d/ w pt -- incl.. TPN and pros and cons of TPN. pt feels not upto it. Trial of megace failed in the past. Cath in am. Palliative c/s placed. - s/p cath; EF 30%; report pending; talk to spouse at length, and to the shade bander and RN. will provide PPN. -await palliative input. *
[2019-05-01 13:11] LABS: ANA Symphony (Qualitative) Negative (Negative); ANA Symphony (Quantitative) 0.1 Ratio (< 0.7 Negative); dsDNA IgG Antibody 0.9 IU/mL (<10 Negative)
[2019-05-01] MEDS ORDERED: Iopamidol 370 76% 100 ML VIAL ONE (13:21)
[2019-05-01] MEDS ORDERED: Iopamidol 370 76% 50 ML VIAL FS ONE (13:21)
--- NOTE | 2019-05-01 14:43 | PDOC.PALCO ---
Palliative Care Consult - Consult Details Requesting Physician: Dr Taylor Reason for Consult: goals of care, symptom management, assistance with communication prognosis/disease Family Members Present: - Pertinent HPI 73 year old female who saw her primary care physician several weeks ago for non specific abdominal discomfort and was to follow up with GI for further evaluation in [place]. A Mass was identified, removed and found to be positive for adenocarcinoma and told she was "cancer free". 100lb weight loss over past year with nausea and poor appitite, intermittant vomiting, and increaseing weakness. SHe was brought to the emergency room as she was cold, clammy and shaky. Emergency room evaluation identified pulmonary embolus, admitted for further evaluation. During the course of the stay patient has had continued poor appetite and weakness. - Pertinent PMH Atrial Fib, Colon cancer, hypertension, CAD, obesity - Social History Smoking Status: Former smoker Smoking: cigarettes Alcohol Use: none Drug Use History: none Living Situation: - Medications MAR Reviewed: Yes - Allergies Allergies/Adverse Reactions: Allergies Allergy/AdvReac Type Severity Reaction Status Date / Time ciprofloxacin [From Cipro] Allergy Verified 04/24/19 08:48 Iodine and Iodide Containing Allergy Verified 04/24/19 08:48 Produc - Subjective Awake, alert. Continues with nausea, poor appetite. Family at bedside, expressed frustration - ROS Constitutional: loss appetite, weakness, weight changes (greater than 100lb weight loss over past year) ENT: dry mouth, other (negative for congestion) Respiratory: shortness of breath, other (negative for cough) Cardiology: other (negative for chest pain, ) Gastrointestinal: intolerance of foods, nausea, vomiting Genitourinary: other (negative for dysuria, hematuria) Neurological: dizziness, weakness Skin: bruising Psychological: depression - Objective Vital Signs: Vital Signs - Most Recent Temp Pulse Resp BP Pulse Ox 98.3 F 72 16 120/76 97 05/01/19 03:26 05/01/19 11:38 05/01/19 11:38 05/01/19 11:38 05/01/19 11:38 Palliative Performance Scale: 40 - Physical Exam Constitutional: ill appearing, mild distress HEENT: EOMI, moist MMs, PERRLA, sclera anicteric Respiratory: clear to auscultation bilateral, no rales, no wheezing Cardiovascular: RRR Gastrointestinal: soft, non-tender, positive bowel sounds Genitourinary: continent Musculoskeletal: no cyanosis, no clubbing Neurology: moves all 4 limbs, no focal deficits Skin: cap refill <2 seconds, bruising Psychiatric: A&O x 3, depressed - Problem List (1) Adenocarcinoma, colon Code(s): C18.9 - MALIGNANT NEOPLASM OF COLON, UNSPECIFIED Current Visit: Yes Status: Acute (2) Anorexia Code(s): R63.0 - ANOREXIA Current Visit: Yes Status: Acute (3) Depressed affect Code(s): R45.89 - OTHER SYMPTOMS AND SIGNS INVOLVING EMOTIONAL STATE Current Visit: Yes Status: Acute (4) Palliative care encounter Code(s): Z51.5 - ENCOUNTER FOR PALLIATIVE CARE Current Visit: Yes Status: Acute (5) Physical deconditioning Code(s): R53.81 - OTHER MALAISE Current Visit: Yes Status: Acute (6) Pulmonary emboli Code(s): I26.99 - OTHER PULMONARY EMBOLISM WITHOUT ACUTE COR PULMONALE Current Visit: Yes Status: Acute (7) Nausea & vomiting Code(s): R11.2 - NAUSEA WITH VOMITING, UNSPECIFIED Current Visit: Yes Status : Chronic - Plan/Recommendations Plan: Palliative Care initiated by Swapna Garsia RNmanager intensive care unit, refer to notes in note section. I met with patient and her . Primary concern today was appetite. Confirmed that she will try parental nutrition, stated that Megase did not work. Discussed initiation of Marinol with parental nutrition with hope of increase in appetite. Teaching : Avoid hot foods and cool/cold foods are at times more palatable. Oral hygiene 20-30 min prior to eating. Small meals that she desires that are high in calories. Hopeful to discharge home, state that they had several appointments this week for follow up that they are missing. [] minutes spent on this encounter with >50% of the time in counseling and coordination of care. Thank you for this very appropriate consult.
[2019-05-01] MEDS: Dronabinol 2.5 MG CAP PO SCH (17:18)
[2019-05-01] MEDS: Atorvastatin Calcium 40 MG TAB PO SCH (22:56)
[2019-05-02] MEDS: Enoxaparin Sodium 120 MG/0.8 ML SYRINGE SC SCH ×2 (00:05→09:23)
[2019-05-02] MEDS: D5W-AA 4.25% with LYTES 1,000 ML IV SCH ×4 (00:43→14:47)
[2019-05-02] MEDS: NS 0.9% w/ 20 MEQ KCL 1,000 ML/1,000 ML BAG IV SCH (00:58)
[2019-05-02] MEDS: Sodium Chloride 0.9% 1,000 ML IV SCH (00:59)
[2019-05-02 05:12] LABS: Anion Gap 11 mmol/L (10-20); BUN (Urea Nitrogen) 13 mg/dL (9.8-20.1); Calc. Creatinine Clearance 113 mL/min (70-130); Calcium 8.7 mg/dL (7.8-10.44); Carbon Dioxide 26 mmol/L (23-31); Chloride 101 mmol/L (98-107); Estimated GFR-MDRD 70; Glucose 118 mg/dL (83-110); Magnesium 1.5 mg/dL (1.6-2.6); Potassium 3.8 mmol/L (3.5-5.1); Sodium 134 mmol/L (136-145)
[2019-05-02] MEDS ORDERED: Carvedilol 3.125 MG TAB PO SCH (08:54)
[2019-05-02] MEDS ORDERED: Carvedilol 6.25 MG TAB PO SCH (09:15)
[2019-05-02] MEDS: Oxymetazoline HCl 0.05% (30 ML BOT) NS SCH (09:21)
[2019-05-02] MEDS: Pantoprazole 40 MG VIAL IVP SCH (09:30)
[2019-05-02] MEDS ORDERED: Prochlorperazine 10 MG/2 ML VIAL IVP PRN (10:07)
[2019-05-02] MEDS ORDERED: Prochlorperazine 10 MG/2 ML VIAL IVP SCH (10:30)
[2019-05-02] MEDS: Digoxin 0.25 MG TAB PO SCH (11:25)
[2019-05-02] MEDS: Sacubitril 49 MG/Valsartan 51 MG TABLET PO SCH ×2 (11:26→21:02)
[2019-05-02] MEDS: Dronabinol 2.5 MG CAP PO SCH ×2 (11:29→18:32)
[2019-05-02] MEDS: Megestrol Acetate 40 MG TAB PO SCH (11:30)
[2019-05-02] MEDS: Aspirin 81 mg Enteric Coated Tablet PO SCH (11:30)
[2019-05-02] MEDS: Famotidine 20 MG TAB PO SCH ×2 (11:32→21:01)
[2019-05-02] MEDS: Spironolactone 25 MG TAB PO SCH (11:32)
[2019-05-02] MEDS: pyridOXINE 50 MG (B6) TAB PO SCH ×3 (11:33→21:02)
--- NOTE | 2019-05-02 11:33 | PDOC.HOSPP ---
- Subjective Encounter Date: 05/02/19 Encounter Time: 09:00 Subjective: nauseated, PPN running, resart eliquis. will try compazine dose as phenergan not seem to work much. - Objective Vital Signs & Weight: Vital Signs (12 hours) Temp Pulse Resp BP BP Pulse Ox 05/02/19 07:27 97.8 F 75 15 149/91 H 97 05/02/19 03:31 97.4 F L 79 18 150/87 H 96 Weight Admit Weight 251 lb 5.231 oz Weight 247 lb 4.8 oz Most Recent Monitor Data Heart Rate from ECG 81 NIBP 152/91 NIBP BP-Mean 111 Respiration from ECG 16 SpO2 100 I&O: 05/01/19 05/02/19 05/03/19 06:59 06:59 06:59 Intake Total 1422.5 1716 Output Total 1275 800 Balance 147.5 916 Result Diagrams: 05/01/19 04:31 05/02/19 04:40 Hospitalist ROS - Medication Medications: Active Medications Generic Name Dose Route Start Last Admin Trade Name Segundoq PRN Reason Stop Dose Admin Aspirin 81 mg 04/28/19 09:00 05/01/19 07:46 Ecotrin PO Not Given DAILY [facility] Atorvastatin Calcium 40 mg 04/27/19 21:00 05/01/19 22:56 Lipitor PO Not Given HS [facility] Digoxin 0.25 mg 04/28/19 09:00 05/01/19 05:25 Lanoxin PO 0.25 mg QAM [facility] Administration Dronabinol 2.5 mg 05/01/19 16:30 05/01/19 17:18 Marinol PO 2.5 mg BID-AC [facility] Administration Famotidine 20 mg 04/28/19 21:00 05/01/19 22:51 Pepcid PO 20 mg BID [facility] Administration Amino Acids/Electrolytes/Dextrose 1,000 mls @ 75 mls/hr 05/01/19 11:45 01:03 Clinimix E 4.25/5 IV 1,000 mls .[id number] [facility] Administration Megestrol Acetate 40 mg 04/28/19 09:00 04/28/19 10:50 Megace PO Not Given DAILY [facility] Oxymetazoline HCl 0 ml 04/28/19 09:00 05/02/19 09:21 Nasal Decongestant NS Not Given DAILY [facility] Pantoprazole Sodium 40 mg 04/29/19 09:00 05/02/19 09:30 Protonix IVP 40 mg DAILY [facility] Administration Prochlorperazine Edisylate 10 mg 05/02/19 10:30 05/02/19 10:39 Compazine IVP 05/02/19 12:00 10 mg NOW [facility] Administration Pyridoxine HCl 50 mg 04/28/19 15:00 05/01/19 22:51 Vitamin B 6 PO Not Given TID [facility] Sodium Chloride 10 ml 04/24/19 03:18 05/01/19 10:57 Normal Saline Pf FS 10 ml PRN PRN Administration RECONSTITUTION Spironolactone 25 mg 04/28/19 08:00 05/01/19 07:46 Aldactone PO Not Given QAM-WM [facility] - Exam General Appearance: awake alert, ill appearing Eye: PERRL ENT: normocephalic atraumatic Neck: supple Heart: RRR Respiratory: CTAB Gastrointestinal: soft, normal bowel sounds Extremities: no cyanosis Hosp A/P - Plan * Syncope * paroxysmal symptomatic atrial fibrillation w/ RVR * prolonged QTc * temporally correlated * code green 04/27: syncope when rising up from bed in route to MRI machine * close tele monitor d/t fall risk a/w syncope * EP and cardiology onboard; appreciate recs * optimized medications to limit effects on QT duration * keep Mg > 2, K > 4 * CHFrEF IIIc * Iscehimic CMY * echo 10-15%; * cardiology onboard * * Right lung lobar and segmental PE * on eliquis * colon cancer * poor appetite * N/V * could also be due to HF and other comorbidities * avoiding QTc prolonging agents such as zofran, phenergan * started on vitamin B6 oral if can tolerate to reduce N/V without effect on QT duration * transitioned medications to IV * KUB i--7th - Nonspecific bowel gas pattern * MRI - no intracranial abn'ty Not able to have any po intake including pleasure foods. options of nutrition d/ w pt -- incl.. TPN and pros and cons of TPN. pt feels not upto it. Trial of megace failed in the past. Cath in am. Palliative c/s placed. - s/p cath; EF 30%; report pending; talk to spouse at length, and to the roll hand and RN. will provide PPN. -await palliative input. -restarting karuna - PPN -palliative care following with us. -will d/w spouse on transferring her for LTAC vs.. SNF vs home health -TAYLER is working w.. us.
[2019-05-02 11:37] LABS: Arsenic - Blood 5 ug/L (2-23); Lead - Blood 1 ug/dL (0-4); Mercury - Blood None Detected ug/L (0.0-14.9)
[2019-05-02] MEDS: Carvedilol 3.125 MG TAB PO SCH (11:42)
[2019-05-02] MEDS: Carvedilol 6.25 MG TAB PO SCH (18:32)
[2019-05-02] MEDS: Atorvastatin Calcium 40 MG TAB PO SCH (21:01)
[2019-05-02] MEDS: Apixaban 5 MG TAB PO SCH (21:01)
[2019-05-03] MEDS: D5W-AA 4.25% with LYTES 1,000 ML IV SCH ×2 (03:41→18:18)
[2019-05-03 05:21] LABS: Hemoglobin 10.4 g/dL (12.0-16.0); Platelet Count 122 thou/uL (130-400)
[2019-05-03] MEDS: Sacubitril 49 MG/Valsartan 51 MG TABLET PO SCH ×2 (09:50→23:50)
[2019-05-03] MEDS: Carvedilol 6.25 MG TAB PO SCH ×3 (09:50→17:15)
[2019-05-03] MEDS: Megestrol Acetate 40 MG TAB PO SCH ×4 (09:50→15:39)
[2019-05-03] MEDS: Apixaban 5 MG TAB PO SCH ×2 (09:51→23:50)
[2019-05-03] MEDS: Aspirin 81 mg Enteric Coated Tablet PO SCH (09:51)
[2019-05-03] MEDS: Spironolactone 25 MG TAB PO SCH (09:51)
[2019-05-03] MEDS: Famotidine 20 MG TAB PO SCH ×2 (09:51→23:50)
[2019-05-03] MEDS: pyridOXINE 50 MG (B6) TAB PO SCH ×4 (09:51→23:50)
[2019-05-03] MEDS: Oxymetazoline HCl 0.05% (30 ML BOT) NS SCH (09:52)
[2019-05-03] MEDS: Pantoprazole 40 MG VIAL IVP SCH (09:52)
--- NOTE | 2019-05-03 11:37 | PDOC.HOSPP ---
- Subjective Encounter Date: 05/03/19 Encounter Time: 09:20 Subjective: able to have some bite, less nausea; quite depressed. 'id ont care, who comes and goes' - Objective Vital Signs & Weight: Vital Signs (12 hours) Temp Pulse Resp BP BP Pulse Ox 05/03/19 08:20 98.1 F 80 15 124/81 97 05/03/19 04:00 98 F 80 16 147/80 H 97 05/03/19 00:00 97.6 F 76 16 111/73 96 Weight Admit Weight 251 lb 5.231 oz Weight 246 lb 8 oz Most Recent Monitor Data Heart Rate from ECG 81 NIBP 152/91 NIBP BP-Mean 111 Respiration from ECG 16 SpO2 100 I&O: 05/02/19 05/03/19 05/04/19 06:59 06:59 06:59 Intake Total 1716 2155 Output Total 800 950 Balance 916 1205 Result Diagrams: 05/03/19 04:52 05/03/19 04:52 Hospitalist ROS - Medication Medications: Active Medications Generic Name Dose Route Start Last Admin Trade Name Leia PRN Reason Stop Dose Admin Apixaban 5 mg 05/02/19 21:00 05/03/19 09:51 Eliquis PO 5 mg BID BENJY Administration Aspirin 81 mg 04/28/19 09:00 05/03/19 09:51 Ecotrin PO 81 mg DAILY BENJY Administration Atorvastatin Calcium 40 mg 04/27/19 21:00 05/02/19 21:01 Lipitor PO 40 mg HS BENJY Administration Carvedilol 12.5 mg 05/03/19 08:00 05/03/19 09:50 Coreg PO 12.5 mg BID-WM BENJY Administration Dronabinol 2.5 mg 05/01/19 16:30 05/02/19 18:32 Marinol PO 2.5 mg BID-AC BENJY Administration Famotidine 20 mg 04/28/19 21:00 05/03/19 09:51 Pepcid PO 20 mg BID BENJY Administration Amino Acids/Electrolytes/Dextrose 1,000 mls @ 75 mls/hr 05/01/19 11:45 03:41 Clinimix E 4.25/5 IV 1,000 mls .[id number] BENJY Administration Megestrol Acetate 40 mg 04/28/19 09:00 05/03/19 09:50 Megace PO 40 mg DAILY BENJY Administration Oxymetazoline HCl 0 ml 04/28/19 09:00 05/03/19 09:52 Nasal Decongestant NS 30 ml DAILY BENJY Administration Pantoprazole Sodium 40 mg 04/29/19 09:00 05/03/19 09:52 Protonix IVP 40 mg DAILY BENJY Administration Pyridoxine HCl 50 mg 04/28/19 15:00 05/03/19 09:51 Vitamin B 6 PO 50 mg TID BENJY Administration Sacubitril/Valsartan 1 tab 05/02/19 09:00 05/03/19 09:50 Entresto 49 Mg-51 Mg Tablet PO 1 tab BID BENJY Administration Sodium Chloride 10 ml 04/24/19 03:18 05/01/19 10:57 Normal Saline Pf FS 10 ml PRN PRN Administration RECONSTITUTION Spironolactone 25 mg 04/28/19 08:00 05/03/19 09:51 Aldactone PO 25 mg QAM-WM BENJY Administration - Exam General Appearance: NAD, awake alert Eye: PERRL ENT: normocephalic atraumatic Neck: supple Heart: RRR Respiratory: CTAB, normal chest expansion Gastrointestinal: soft, normal bowel sounds Hosp A/P - Plan * Syncope * paroxysmal symptomatic atrial fibrillation w/ RVR * prolonged QTc * temporally correlated * code green 04/27: syncope when rising up from bed in route to MRI machine * close tele monitor d/t fall risk a/w syncope * EP and cardiology onboard; appreciate recs * optimized medications to limit effects on QT duration * keep Mg > 2, K > 4 * CHFrEF IIIc * Iscehimic CMY * echo 10-15%; * cardiology onboard * * Right lung lobar and segmental PE * on eliquis * colon cancer * poor appetite * N/V * could also be due to HF and other comorbidities * avoiding QTc prolonging agents such as zofran, phenergan * started on vitamin B6 oral if can tolerate to reduce N/V without effect on QT duration * transitioned medications to IV * KUB i--7th - Nonspecific bowel gas pattern * MRI - no intracranial abn'ty Not able to have any po intake including pleasure foods. options of nutrition d/ w pt -- incl.. TPN and pros and cons of TPN. pt feels not upto it. Trial of megace failed in the past. Cath in am. Palliative c/s placed. - s/p cath; EF 30%; report pending; talk to spouse at length, and to the dining room hostess and RN. will provide PPN. -await palliative input. -restarting eliquis - PPN -palliative care following with us. -will d/w spouse on transferring her for LTAC vs.. SNF vs home health -CM is working w.. us. 11 -starting low dose compazine as it seems to help w.. nausea and she is able to take bites -starting low dose seroquel.
[2019-05-03] MEDS: Dronabinol 2.5 MG CAP PO SCH ×2 (12:50→17:17)
[2019-05-03] MEDS: Atorvastatin Calcium 40 MG TAB PO SCH (23:49)
[2019-05-04] MEDS: D5W-AA 4.25% with LYTES 1,000 ML IV SCH ×3 (05:50→21:31)
[2019-05-04] MEDS: Sodium Chloride 0.9% (PF) 10 ML VIAL FS PRN (09:32)
[2019-05-04] MEDS: Pantoprazole 40 MG VIAL IVP SCH (09:33)
[2019-05-04] MEDS: Oxymetazoline HCl 0.05% (30 ML BOT) NS SCH (09:33)
[2019-05-04] MEDS: Sacubitril 49 MG/Valsartan 51 MG TABLET PO SCH ×2 (09:34→21:30)
[2019-05-04] MEDS: Dronabinol 2.5 MG CAP PO SCH ×2 (09:34→16:25)
[2019-05-04] MEDS: Carvedilol 6.25 MG TAB PO SCH ×2 (09:35→16:27)
[2019-05-04] MEDS: Aspirin 81 mg Enteric Coated Tablet PO SCH (09:35)
[2019-05-04] MEDS: Famotidine 20 MG TAB PO SCH ×2 (09:35→21:30)
[2019-05-04] MEDS: pyridOXINE 50 MG (B6) TAB PO SCH ×3 (09:36→21:30)
[2019-05-04] MEDS: Apixaban 5 MG TAB PO SCH ×2 (09:36→21:30)
[2019-05-04] MEDS: Spironolactone 25 MG TAB PO SCH (09:36)
[2019-05-04] MEDS: Megestrol Acetate 40 MG TAB PO SCH (09:36)
--- NOTE | 2019-05-04 15:16 | PDOC.HOSPP ---
- Subjective Encounter Date: 05/04/19 Encounter Time: 09:40 Subjective: pt still not eating much. talk to spouse, and he feels strongly that he cannot take care of her, agreeable for placement. d/w CM and challenge is to find a place where they would take her w.. PPN unless she shows positive sign of atleast some po intake, which is so far almost nil. - Objective Vital Signs & Weight: Vital Signs (12 hours) Temp Pulse Pulse Pulse Resp BP BP 05/04/19 12:22 69 65 102/66 128/65 05/04/19 11:39 97.5 F L 71 20 05/04/19 07:54 98.5 F 70 20 05/04/19 07:37 05/04/19 03:38 97.8 F 76 18 BP Pulse Ox 05/04/19 12:22 05/04/19 11:39 138/76 96 05/04/19 07:54 182/82 H 97 05/04/19 07:37 97 05/04/19 03:38 129/71 98 Weight Admit Weight 251 lb 5.231 oz Weight 241 lb 12.8 oz Most Recent Monitor Data Heart Rate from ECG 81 NIBP 152/91 NIBP BP-Mean 111 Respiration from ECG 16 SpO2 100 I&O: 05/03/19 05/04/19 05/05/19 06:59 06:59 06:59 Intake Total 2155 Output Total 950 900 600 Balance 1205 -900 -600 Result Diagrams: 05/03/19 04:52 05/03/19 04:52 Hospitalist ROS - Medication Medications: Active Medications Generic Name Dose Route Start Last Admin Trade Name Leia PRN Reason Stop Dose Admin Apixaban 5 mg 05/02/19 21:00 05/04/19 09:36 Eliquis PO 5 mg BID BENJY Administration Aspirin 81 mg 04/28/19 09:00 05/04/19 09:35 Ecotrin PO 81 mg DAILY BENJY Administration Atorvastatin Calcium 40 mg 04/27/19 21:00 05/03/19 23:49 Lipitor PO 40 mg HS BENJY Administration Carvedilol 12.5 mg 05/03/19 08:00 05/04/19 09:35 Coreg PO 12.5 mg BID-WM BENJY Administration Dronabinol 2.5 mg 05/01/19 16:30 05/04/19 09:34 Marinol PO 2.5 mg BID-AC BENJY Administration Famotidine 20 mg 04/28/19 21:00 05/04/19 09:35 Pepcid PO 20 mg BID BENJY Administration Amino Acids/Electrolytes/Dextrose 1,000 mls @ 75 mls/hr 05/01/19 11:45 05:50 Clinimix E 4.25/5 IV 1,000 mls .[id number] BENJY Administration Prochlorperazine Edisylate 5 51 mls @ 150 mls/hr 05/03/19 15:00 05/04/19 09: 33 mg/ Sodium Chloride IVPB 51 mls TID BENJY Administration Megestrol Acetate 40 mg 04/28/19 09:00 05/04/19 09:36 Megace PO 40 mg DAILY BENJY Administration Oxymetazoline HCl 0 ml 04/28/19 09:00 05/04/19 09:33 Nasal Decongestant NS 30 ml DAILY BENJY Administration Pantoprazole Sodium 40 mg 04/29/19 09:00 05/04/19 09:33 Protonix IVP 40 mg DAILY BENJY Administration Pyridoxine HCl 50 mg 04/28/19 15:00 05/04/19 09:36 Vitamin B 6 PO 50 mg TID BENJY Administration Sacubitril/Valsartan 1 tab 05/02/19 09:00 05/04/19 09:34 Entresto 49 Mg-51 Mg Tablet PO 1 tab BID BENJY Administration Sertraline HCl 25 mg 05/04/19 09:00 05/04/19 09:36 Zoloft PO 25 mg DAILY BENJY Administration Sodium Chloride 10 ml 04/24/19 03:18 05/04/19 09:32 Normal Saline Pf FS 10 ml PRN PRN Administration RECONSTITUTION Spironolactone 25 mg 04/28/19 08:00 05/04/19 09:36 Aldactone PO 25 mg QAM-WM BENJY Administration - Exam General Appearance: NAD, awake alert Eye: PERRL ENT: normocephalic atraumatic Neck: supple Heart: RRR Respiratory: CTAB Gastrointestinal: soft, normal bowel sounds Extremities: no cyanosis Hosp A/P - Plan * Syncope * paroxysmal symptomatic atrial fibrillation w/ RVR * prolonged QTc * temporally correlated * code green 04/27: syncope when rising up from bed in route to MRI machine * close tele monitor d/t fall risk a/w syncope * EP and cardiology onboard; appreciate recs * optimized medications to limit effects on QT duration * keep Mg > 2, K > 4 * CHFrEF IIIc * Iscehimic CMY * echo 10-15%; * cardiology onboard * * Right lung lobar and segmental PE * on eliquis * colon cancer * poor appetite * N/V * could also be due to HF and other comorbidities * avoiding QTc prolonging agents such as zofran, phenergan * started on vitamin B6 oral if can tolerate to reduce N/V without effect on QT duration * transitioned medications to IV * KUB i--7th - Nonspecific bowel gas pattern * MRI - no intracranial abn'ty Not able to have any po intake including pleasure foods. options of nutrition d/ w pt -- incl.. TPN and pros and cons of TPN. pt feels not upto it. Trial of megace failed in the past. Cath in am. Palliative c/s placed. - s/p cath; EF 30%; report pending; talk to spouse at length, and to the television repairer and RN. will provide PPN. -await palliative input. 10th -restarting eliquis - PPN -palliative care following with us. -will d/w spouse on transferring her for LTAC vs.. SNF vs home health -CM is working w.. us. 11th -starting low dose compazine as it seems to help w.. nausea and she is able to take bites -starting low dose seroquel. 12th Talk to spouse, and he feels strongly that he cannot take care of her, he is agreeable for placement. d/w CM and challenge is to find a place where they would take her w.. PPN unless she shows positive sign of atleast some po intake , which is so far almost nil. with her present state of health, i am not convinced that she would be able to go through chemo for colon ca. Palliative following w.. us and no rec. from them. pt is a full code.
[2019-05-04] MEDS: Atorvastatin Calcium 40 MG TAB PO SCH (21:30)
[2019-05-05] MEDS: Sacubitril 49 MG/Valsartan 51 MG TABLET PO SCH (09:34)
[2019-05-05] MEDS: Dronabinol 2.5 MG CAP PO SCH ×2 (09:34→17:33)
[2019-05-05] MEDS: Aspirin 81 mg Enteric Coated Tablet PO SCH (09:34)
[2019-05-05] MEDS: Spironolactone 25 MG TAB PO SCH (09:35)
[2019-05-05] MEDS: Apixaban 5 MG TAB PO SCH ×2 (09:35→21:20)
[2019-05-05] MEDS: Megestrol Acetate 40 MG TAB PO SCH (09:35)
[2019-05-05] MEDS: Famotidine 20 MG TAB PO SCH ×2 (09:35→21:21)
[2019-05-05] MEDS: pyridOXINE 50 MG (B6) TAB PO SCH ×2 (09:36→15:54)
[2019-05-05] MEDS: Pantoprazole 40 MG VIAL IVP SCH (09:36)
[2019-05-05] MEDS: Oxymetazoline HCl 0.05% (30 ML BOT) NS SCH (09:36)
[2019-05-05] MEDS: Carvedilol 6.25 MG TAB PO SCH ×2 (09:37→17:36)
[2019-05-05] MEDS: D5W-AA 4.25% with LYTES 1,000 ML IV SCH (11:48)
--- NOTE | 2019-05-05 12:20 | PDOC.HOSPP ---
- Subjective Encounter Date: 05/05/19 Encounter Time: 09:00 Subjective: trying to have little of the breakfast; spouse helping her. - Objective Vital Signs & Weight: Vital Signs (12 hours) Temp Pulse Pulse Pulse Resp BP BP 05/05/19 12:11 97.9 F 79 18 05/05/19 11:25 79 74 138/94 H 05/05/19 09:37 117/83 05/05/19 07:42 98.6 F 70 20 05/05/19 07:00 05/05/19 04:00 97.9 F 67 16 BP BP BP Pulse Ox 05/05/19 12:11 138/94 H 97 05/05/19 11:25 125/90 05/05/19 09:37 05/05/19 07:42 144/94 H 98 05/05/19 07:00 98 05/05/19 04:00 121/68 98 Weight Admit Weight 251 lb 5.231 oz Weight 245 lb 3.2 oz Most Recent Monitor Data Heart Rate from ECG 81 NIBP 152/91 NIBP BP-Mean 111 Respiration from ECG 16 SpO2 100 I&O: 05/04/19 05/05/19 05/06/19 06:59 06:59 06:59 Intake Total 1139 Output Total 900 900 Balance -900 239 Result Diagrams: 05/03/19 04:52 05/03/19 04:52 Hospitalist ROS - Medication Medications: Active Medications Generic Name Dose Route Start Last Admin Trade Name Freq PRN Reason Stop Dose Admin Apixaban 5 mg 05/02/19 21:00 05/05/19 09:35 Eliquis PO 5 mg BID BENJY Administration Aspirin 81 mg 04/28/19 09:00 05/05/19 09:34 Ecotrin PO Not Given DAILY BENJY Atorvastatin Calcium 40 mg 04/27/19 21:00 05/04/19 21:30 Lipitor PO 40 mg HS BENJY Administration Carvedilol 12.5 mg 05/03/19 08:00 05/05/19 09:37 Coreg PO Not Given BID-WM BENJY Dronabinol 2.5 mg 05/01/19 16:30 05/05/19 09:34 Marinol PO Not Given BID-AC BENJY Famotidine 20 mg 04/28/19 21:00 05/05/19 09:35 Pepcid PO 20 mg BID BENJY Administration Amino Acids/Electrolytes/Dextrose 1,000 mls @ 75 mls/hr 05/01/19 11:45 11:48 Clinimix E 4.25/5 IV 1,000 mls .[id number] BENJY Administration Prochlorperazine Edisylate 5 51 mls @ 150 mls/hr 05/03/19 15:00 05/05/19 09: 34 mg/ Sodium Chloride IVPB 51 mls TID BENJY Administration Megestrol Acetate 40 mg 04/28/19 09:00 05/05/19 09:35 Megace PO 40 mg DAILY BENJY Administration Oxymetazoline HCl 0 ml 04/28/19 09:00 05/05/19 09:36 Nasal Decongestant NS Not Given DAILY [facility] Pantoprazole Sodium 40 mg 04/29/19 09:00 05/05/19 09:36 Protonix IVP 40 mg DAILY BENJY Administration Pyridoxine HCl 50 mg 04/28/19 15:00 05/05/19 09:36 Vitamin B 6 PO Not Given TID [facility] Sacubitril/Valsartan 1 tab 05/02/19 09:00 05/05/19 09:34 Entresto 49 Mg-51 Mg Tablet PO Not Given BID [facility] Sertraline HCl 25 mg 05/04/19 09:00 05/05/19 09:36 Zoloft PO Not Given DAILY [facility] Sodium Chloride 10 ml 04/24/19 03:18 05/04/19 09:32 Normal Saline Pf FS 10 ml PRN PRN Administration RECONSTITUTION Spironolactone 25 mg 04/28/19 08:00 05/05/19 09:35 Aldactone PO 25 mg QAM-WM BENJY Administration - Exam General Appearance: NAD Eye: PERRL ENT: normocephalic atraumatic Neck: supple Heart: RRR Respiratory: CTAB Gastrointestinal: soft, normal bowel sounds Hosp A/P - Plan * Syncope * paroxysmal symptomatic atrial fibrillation w/ RVR * prolonged QTc * temporally correlated * code green 04/27: syncope when rising up from bed in route to MRI machine * close tele monitor d/t fall risk a/w syncope * EP and cardiology onboard; appreciate recs * optimized medications to limit effects on QT duration * keep Mg > 2, K > 4 * CHFrEF IIIc * Iscehimic CMY * echo 10-15%; * cardiology onboard * * Right lung lobar and segmental PE * on eliquis * colon cancer * poor appetite * N/V * could also be due to HF and other comorbidities * avoiding QTc prolonging agents such as zofran, phenergan * started on vitamin B6 oral if can tolerate to reduce N/V without effect on QT duration * transitioned medications to IV * KUB i--7th - Nonspecific bowel gas pattern * MRI - no intracranial abn'ty Not able to have any po intake including pleasure foods. options of nutrition d/ w pt -- incl.. TPN and pros and cons of TPN. pt feels not upto it. Trial of megace failed in the past. Cath in am. Palliative c/s placed. 9 s/p cath; EF 30%; and to the ice carver and RN. will provide PPN. -await palliative input. -restarting eliquis -cw PPN -palliative care following with us. -starting low dose compazine as it seems to help w.. nausea and she is able to take bites -starting low dose seroquel. Talk to spouse, and he feels strongly that he cannot take care of her, he is agreeable for placement. d/w CM and challenge is to find a place where they would take her w.. PPN unless she shows positive sign of atleast some po intake , which is so far almost nil. with her present state of health, i am not convinced that she would be able to go through chemo for colon ca. Palliative following w.. us and no rec. from them. pt is a full code. it is noted SNF may not take w.. PPN. Has to wait until slight improvement in po intake before transferring to SNF unless any facility would take w.. PPN.
--- NOTE | 2019-05-05 17:35 | PRG ---
DATE OF SERVICE: 05/05/2019 PRIMARY GARDEN TRACTOR MECHANIC: Apollo Flynn MD SUBJECTIVE: Ms. Quintero is resting, does not indicate any chest pain or pressure. OBJECTIVE: VITAL SIGNS: Her blood pressure 138/94 and pulse is 70. LUNGS: Clear. CARDIAC: Normal S1 and normal S2. ABDOMEN: Soft and nontender. MEDICATIONS: The patient is on Entresto, carvedilol, and apixaban. ASSESSMENT: 1. Coronary artery disease. 2. Congestive heart failure, on appropriate medicine. 3. Status post pulmonary emboli. PLAN: She is on all the appropriate medicines. Dr. Parikh is available this weekend if needed. Otherwise, we will sign off. Dr. Flynn will be back on Wednesday. Job ID: [id number]
[2019-05-05] MEDS: Atorvastatin Calcium 40 MG TAB PO SCH (21:20)
[2019-05-06] MEDS: D5W-AA 4.25% with LYTES 1,000 ML IV SCH ×3 (00:45→14:27)
[2019-05-06] MEDS: pyridOXINE 50 MG (B6) TAB PO SCH ×4 (00:51→23:05)
[2019-05-06] MEDS: Sacubitril 49 MG/Valsartan 51 MG TABLET PO SCH ×3 (00:53→23:50)
[2019-05-06] MEDS: Spironolactone 25 MG TAB PO SCH (09:50)
[2019-05-06] MEDS: Dronabinol 2.5 MG CAP PO SCH ×2 (09:50→16:28)
[2019-05-06] MEDS: Famotidine 20 MG TAB PO SCH ×2 (09:51→23:07)
[2019-05-06] MEDS: Megestrol Acetate 40 MG TAB PO SCH ×2 (09:51→23:00)
[2019-05-06] MEDS: Aspirin 81 mg Enteric Coated Tablet PO SCH (09:51)
[2019-05-06] MEDS: Apixaban 5 MG TAB PO SCH ×2 (09:51→23:01)
[2019-05-06] MEDS: Oxymetazoline HCl 0.05% (30 ML BOT) NS SCH (09:52)
[2019-05-06] MEDS: Pantoprazole 40 MG VIAL IVP SCH (09:52)
[2019-05-06] MEDS: Carvedilol 6.25 MG TAB PO SCH ×2 (10:08→16:28)
--- NOTE | 2019-05-06 15:03 | PDOC.HOSPP ---
- Subjective Encounter Date: 05/06/19 Encounter Time: 14:50 Subjective: f/u for generalized weakness, PE, colon CA with global decline, poor appetite and po intake receiving PPN. Nursing reports pt remains somnolent today. - Objective Vital Signs & Weight: Vital Signs (12 hours) Temp Pulse Pulse Resp BP BP BP 05/06/19 12:00 97.5 F L 76 18 97/75 05/06/19 10:08 144/76 H 05/06/19 09:11 75 84/61 L 05/06/19 08:00 97.0 F L 72 16 119/82 05/06/19 04:23 97.5 F L 68 14 05/06/19 04:11 BP Pulse Ox 05/06/19 12:00 97 05/06/19 10:08 05/06/19 09:11 05/06/19 08:00 99 05/06/19 04:23 122/73 99 05/06/19 04:11 99 Weight Admit Weight 251 lb 5.231 oz Weight 246 lb 11.2 oz Most Recent Monitor Data Heart Rate from ECG 81 NIBP 152/91 NIBP BP-Mean 111 Respiration from ECG 16 SpO2 100 I&O: 05/05/19 05/06/19 05/07/19 06:59 06:59 06:59 Intake Total 1139 1087 Output Total 900 1850 Balance 239 -763 Result Diagrams: 05/03/19 04:52 05/03/19 04:52 Additional Labs: Microbiology 04/23/19 20:33 Venous blood - Right Hand Blood Culture - Final NO GROWTH IN 5 DAYS 04/23/19 20:03 Urine Straight Catheter Urine Culture - Final NO GROWTH AT 36 HOURS 04/23/19 19:53 Nasal swab Influenza Types A,B Direct EIA - Final 04/23/19 19:43 Venous blood - Left Hand Blood Culture - Final NO GROWTH IN 5 DAYS Radiology Reviewed by me: Yes (Echo - EF 55%, markedly enlarged pulm arteries) EKG Reviewed by me: Yes (Tele - SR) Hospitalist ROS - Medication Medications: Active Medications Generic Name Dose Route Start Last Admin Trade Name Freq PRN Reason Stop Dose Admin Apixaban 5 mg 05/02/19 21:00 05/06/19 09:51 Eliquis PO 5 mg BID BENJY Administration Aspirin 81 mg 04/28/19 09:00 05/06/19 09:51 Ecotrin PO 81 mg DAILY BENJY Administration Atorvastatin Calcium 40 mg 04/27/19 21:00 05/05/19 21:20 Lipitor PO 40 mg HS BENJY Administration Carvedilol 12.5 mg 05/03/19 08:00 05/06/19 10:08 Coreg PO 12.5 mg BID-WM BENJY Administration Dronabinol 2.5 mg 05/01/19 16:30 05/06/19 09:50 Marinol PO 2.5 mg BID-AC BENJY Administration Famotidine 20 mg 04/28/19 21:00 05/06/19 09:51 Pepcid PO 20 mg BID BENJY Administration Amino Acids/Electrolytes/Dextrose 1,000 mls @ 75 mls/hr 05/01/19 11:45 14:27 Clinimix E 4.25/5 IV 1,000 mls .[id number] BENJY Administration Oxymetazoline HCl 0 ml 04/28/19 09:00 05/06/19 09:52 Nasal Decongestant NS 1 ml DAILY BENJY Administration Pantoprazole Sodium 40 mg 04/29/19 09:00 05/06/19 09:52 Protonix IVP 40 mg DAILY BENJY Administration Pyridoxine HCl 50 mg 04/28/19 15:00 05/06/19 14:26 Vitamin B 6 PO Not Given TID BENJY Sacubitril/Valsartan 1 tab 05/02/19 09:00 05/06/19 10:08 Entresto 49 Mg-51 Mg Tablet PO 1 tab BID BENJY Administration Sertraline HCl 25 mg 05/04/19 09:00 05/06/19 09:51 Zoloft PO 25 mg DAILY BENJY Administration Sodium Chloride 10 ml 04/24/19 03:18 05/04/19 09:32 Normal Saline Pf FS 10 ml PRN PRN Administration RECONSTITUTION Spironolactone 25 mg 04/28/19 08:00 05/06/19 09:50 Aldactone PO 25 mg QAM-WM BENJY Administration - Exam General Appearance: ill appearing General - other findings: somnolent, mumbles Eye: PERRL, anicteric sclera ENT: normocephalic atraumatic, no oropharyngeal lesions, dry oral mucosa Neck: supple, symmetric, no JVD, no thyromegaly, no lymphadenopathy Heart: RRR, no murmur, no gallops, no rubs, normal peripheral pulses Respiratory: CTAB, no wheezes, no rales, no ronchi Gastrointestinal: soft, non-tender, non-distended, normal bowel sounds, no palpable masses Extremities: no cyanosis, no clubbing, 1+ LE edema Skin: normal turgor, no lesions Musculoskeletal: generalized weakness Psychiatric: oriented to person, somnolent, lethargic Hosp A/P (1) Syncope and collapse Code(s): R55 - SYNCOPE AND COLLAPSE Status: Acute Plan: Suspect multifactorial including PE, deconditioning, PT/OT, SNF/NH options (2) Physical deconditioning Code(s): R53.81 - OTHER MALAISE Status: Acute Plan: Multifactorial process, see above #1, SNF/NH options pending (3) Cardiomyopathy Code(s): I42.9 - CARDIOMYOPATHY, UNSPECIFIED Status: Acute Plan: EF 10-15%, medical mgmt, continue Entresto (4) Adenocarcinoma, colon Code(s): C18.9 - MALIGNANT NEOPLASM OF COLON, UNSPECIFIED Status: Acute Plan: Taisha unable to pursue treatment given poor overall performance and clinical status, Palliative care following (5) Pulmonary emboli Code(s): I26.99 - OTHER PULMONARY EMBOLISM WITHOUT ACUTE COR PULMONALE Status : Acute Plan: Continue Eliquis 5mg BID - Plan PT/OT, director social service, out of bed/ambulate, DVT proph w/SCDs Consults: Palliative Care Continue supportive mgmt Continue Eliquis 5mg BID Decrease Compazine Increase Megace 40mg BID Continue nutritional support with PPN CM for NH/SNF options Encourage increased po intake
[2019-05-06] MEDS ORDERED: Sodium Chloride 0.45% 250 ML IV SCH (19:45)
[2019-05-06] MEDS ORDERED: Sodium Chloride 0.9% 250 ML IVPB SCH (20:00)
[2019-05-06 20:29] LABS: Lactic Acid 2.1 mmol/L (0.5-2.2)
[2019-05-06 20:30] LABS: Hemoglobin 9.3 g/dL (12.0-16.0); Mean Corpuscular Hemoglobin 29.3 pg (27.0-31.0); Mean Corpuscular Volume 86.1 fL (78.0-98.0); RBC Distribution Width 17.8 % (11.5-14.5); Red Blood Cell (RBC) Count 3.18 mill/uL (4.20-5.40); White Blood Cell (WBC) Count 2.8 thou/uL (4.8-10.8)
[2019-05-06 20:32] LABS: #Lymphocytes 0.6 thou/uL (1.20-3.40); #Monocytes 0.3 thou/uL (0.11-0.59); #Neutrophils 1.9 thou/uL (1.40-6.50); %Basophils 1.3 % (0.0-1.0); %Eosinophils 1.4 % (0.0-10.0); %Lymphocytes 22.4 % (21.0-51.0); %Monocytes 9.9 % (0.0-10.0); %Neutrophils 65.1 % (42.0-75.0); ALT (SGPT) 30 U/L (8-55); AST (SGOT) 25 U/L (5-34); Albumin 2.3 g/dL (3.4-4.8); Alkaline Phosphatase 47 U/L (40-110); Anion Gap 9 mmol/L (10-20); Anisocytosis SLIGHT = 6-15 cells (100X) (0-5/hpf); BUN (Urea Nitrogen) 30 mg/dL (9.8-20.1); Bilirubin, Total 1.2 mg/dL (0.2-1.2); Calc. Creatinine Clearance 123 mL/min (70-130); Calcium 8.2 mg/dL (7.8-10.44); Carbon Dioxide 22 mmol/L (23-31); Chloride 100 mmol/L (98-107); Estimated GFR-MDRD 79; Globulin 1.9 g/dL (2.4-3.5); Glucose 148 mg/dL (83-110); MDiff Complete? YES; Magnesium 1.7 mg/dL (1.6-2.6); Mean Platelet Volume 9.1 fL (7.4-10.4); Platelet Count 96 thou/uL (130-400); Platelet Morphology Comment Appears Decreased; Potassium 4.2 mmol/L (3.5-5.1); Protein, Total 4.2 g/dL (6.0-8.3); Sodium 127 mmol/L (136-145)
[2019-05-06 20:51] LABS: CKMB 1.8 ng/mL (0-6.6)
--- NOTE | 2019-05-06 20:51 | CT ---
Head CT without contrast 05/06/2019: Comparison: None HISTORY: Confusion and hypotension TECHNIQUE: Axial CT imaging at 5 mm intervals from vertex through skull base without contrast FINDINGS: The imaged paranasal sinuses and mastoid air cells are well-aerated. No displaced calvarial fracture. No intracranial hemorrhage, midline shift, mass effect, or ventricular enlargement. IMPRESSION: No intracranial hemorrhage or displaced calvarial fracture.
--- NOTE | 2019-05-06 22:13 | RAD ---
Portable frontal chest radiograph: 05/06/2019 COMPARISON: 04/23/2019 HISTORY: Short of breath FINDINGS: Lungs are clear. Heart and mediastinal contours appear stable, with stable enlargement of t he cardiac silhouette. Postoperative clips overlie the cardiac silhouette and left chest wall, unchanged. IMPRESSION: No acute findings.
[2019-05-06 22:48] LABS: Actual Bicarbonate (HCO3a) 21.1 mEq/L (22-28); Base Excess (BEa) -1.6 mEq/L (-2.0 to +3.0); CO2 Tension 28.1 mmHg (35.0-45.0); Calcium, Ionized 1.19 mmol/L (1.12-1.30); Carboxyhemoglobin (COHb) 0.4 gm% (0.0-3.0); Hemoglobin (Hb) 8.9 g/dL (12.0-16.0); O2 Tension (PaO2) 90.8 mmHg (> 70.0); Potassium - ABG Lab 4.11 mmol/L (3.70-5.30); pH, Arterial 7.49 (7.35-7.45)
[2019-05-06 22:56] LABS: ALV-art Gradient 23.805 (0-20); Puncture Site L RADIAL
[2019-05-06] MEDS: Atorvastatin Calcium 40 MG TAB PO SCH (23:20)
[2019-05-07 00:18] LABS: CKMB 2.3 ng/mL (0-6.6)
[2019-05-07 01:56] LABS: Bilirubin Negative (Negative); Blood, Urine Moderate (Negative); Glucose, Urine (Dipstick) Negative (Negative); Leukocyte Negative (Negative); Nitrite Negative (Negative); Protein, Urine (Dipstick) Negative (Neg-Trace)
[2019-05-07 02:00] LABS: Clarity Clear (Clear)
[2019-05-07 02:02] LABS: Urine Culture Reflex No No
[2019-05-07 02:22] LABS: Bacteria/HPF None Seen HPF (None Seen); RBC/HPF 0-3 HPF (0-3); Squamous Epithelial None Seen HPF (0-3); Transitional Epithelial None Seen HPF (None Seen); WBC/HPF None Seen HPF (0-3)
--- NOTE | 2019-05-07 03:40 | PDOC.EVN ---
Event Note - Event Note Event Note: Notified by RN, patient with AMS, has had confused speech and appears lethargic. Also noted to be hypotensive. She had episode of AVB x 2. Attempted to consult county engineer environmental protection forester but unable to reach him. Apparently cardiology has signed off. Reported patient without any complaints. Patient with known PE and had Echo done which showed reduced EF however repeat Echo showed improvement. Came to patients bedside and she is able to follow commands, answer questions appropriately but with some confused speech. Some generalized weakness, but able to move both arms with close to normal strength. Lower legs weak, but unclear if due to lack of effort as patient is lethargic. Glucose checked and normal. Sats stable. BP in 80s, therefore she was given Bolus 250 mLs NS. Her BP improved. UA/UCx requested. CXR requested. Repeat labs including lactic acid and BNP. CXR unremarkable. Patient seen and examined by Dr. Magana who has transferred patient to [facility].
[2019-05-07] MEDS: D5W-AA 4.25% with LYTES 1,000 ML IV SCH ×2 (05:32→16:43)
[2019-05-07] MEDS: Dronabinol 2.5 MG CAP PO SCH (07:30)
[2019-05-07] MEDS: Sacubitril 49 MG/Valsartan 51 MG TABLET PO SCH (09:00)
[2019-05-07] MEDS: Pantoprazole 40 MG VIAL IVP SCH (09:49)
[2019-05-07] MEDS: Aspirin 81 mg Enteric Coated Tablet PO SCH (10:06)
[2019-05-07] MEDS: Famotidine 20 MG TAB PO SCH ×2 (10:07→20:15)
[2019-05-07] MEDS: Apixaban 5 MG TAB PO SCH ×2 (10:10→20:15)
[2019-05-07] MEDS: Spironolactone 25 MG TAB PO SCH (10:20)
[2019-05-07 12:53] LABS: Actual Bicarbonate (HCO3a) 20.3 mEq/L (22-28); Base Excess (BEa) -2.1 mEq/L (-2.0 to +3.0); CO2 Tension 26.8 mmHg (35.0-45.0); Calcium, Ionized 1.24 mmol/L (1.12-1.30); Carboxyhemoglobin (COHb) 0.4 gm% (0.0-3.0); Hemoglobin (Hb) 9.5 g/dL (12.0-16.0); O2 Tension (PaO2) 90.4 mmHg (> 70.0); Potassium - ABG Lab 4.14 mmol/L (3.70-5.30)
[2019-05-07 12:54] LABS: Puncture Site LRA
--- NOTE | 2019-05-07 15:11 | PRG ---
DATE OF SERVICE: 05/07/2019 SUBJECTIVE: Ana Quintero was transferred back into the ICU for hypotension apparently last night. She is also somnolent. Medications have been reviewed, and I have stopped unnecessary medications that may be aggravating her somnolence. She is still on Eliquis, but does not appear to be bleeding. OBJECTIVE: VITAL SIGNS: Her blood pressures appear to stabilize, she is currently 125/65; heart rate 73; respiratory rate is 15; oximetry is 96%. GENERAL: She will awaken to voice. She moves all of her extremities. LUNGS: Clear. HEART: Regular rhythm. ABDOMEN: Soft. EXTREMITIES: Without asymmetry. She is quite obese. LABORATORY DATA: White count yesterday was 2.8, hemoglobin is 9.3, platelets 96,000. Electrolytes were unremarkable except for sodium of 127. No electrolytes or CBC was ordered today, so I will order that. A pH today is 7.5, CO2 of 26, pO2 of 90, and sodium is 124 on the blood gas. IMPRESSION AND PLAN: 1. Hypotension with altered mental status. We will eliminate unnecessary medications. 2. Hyponatremia. I doubt that is causing her mental status changes, but this will need to be followed closely. 3. Obesity. 4. Recent thromboembolic event. 5. Hypotension that appears to have resolved. We will follow. Job ID: [id number]
[2019-05-07] MEDS: pyridOXINE 50 MG (B6) TAB PO SCH ×2 (15:12→20:15)
[2019-05-07] MEDS: Oxymetazoline HCl 0.05% (30 ML BOT) NS SCH (15:12)
[2019-05-07] MEDS: Megestrol Acetate 40 MG TAB PO SCH ×2 (15:12→20:15)
--- NOTE | 2019-05-07 15:19 | PDOC.HOSPP ---
- Subjective Encounter Date: 05/07/19 Encounter Time: 15:15 Subjective: f/u for hypotension with acute encephalopathy now resolving. Transferred to IMCU overnight after apparent hypotensive episode and AMS. Received IVF's and was held on BP meds. - Objective Vital Signs & Weight: Vital Signs (12 hours) Temp Pulse Ox 05/07/19 12:00 98 F 05/07/19 10:00 97.8 F 05/07/19 08:00 98.0 F 98 05/07/19 04:00 98.3 F Weight Admit Weight 251 lb 5.231 oz Weight 259 lb 4.218 oz Most Recent Monitor Data Heart Rate from ECG 71 NIBP 125/65 NIBP BP-Mean 85 Respiration from ECG 15 SpO2 98 I&O: 05/06/19 05/07/19 05/08/19 06:59 06:59 06:59 Intake Total 1087 1000 40 Output Total 1850 1300 500 Balance -763 -300 -460 Result Diagrams: 05/06/19 19:59 05/06/19 19:59 Additional Labs: Accuchecks 05/06/19 19:56 POC Glucose 151 H Radiology Reviewed by me: Yes (CXR - neg; CT brain - neg) EKG Reviewed by me: Yes (Tele - SR) Hospitalist ROS - Medication Medications: Active Medications Generic Name Dose Route Start Last Admin Trade Name Leia PRN Reason Stop Dose Admin Apixaban 5 mg 05/02/19 21:00 05/07/19 10:10 Eliquis PO 5 mg BID BENJY Administration Aspirin 81 mg 04/28/19 09:00 05/07/19 10:06 Ecotrin PO 81 mg DAILY BENJY Administration Atorvastatin Calcium 40 mg 04/27/19 21:00 05/06/19 23:20 Lipitor PO 40 mg HS BENJY Administration Famotidine 20 mg 04/28/19 21:00 05/07/19 10:07 Pepcid PO 20 mg BID BENJY Administration Amino Acids/Electrolytes/Dextrose 1,000 mls @ 75 mls/hr 05/01/19 11:45 05:32 Clinimix E 4.25/5 IV 1,000 mls .[id number] BENJY Administration Megestrol Acetate 40 mg 05/06/19 21:00 05/07/19 15:12 Megace PO Not Given BID BENJY Oxymetazoline HCl 0 ml 04/28/19 09:00 05/07/19 15:12 Nasal Decongestant NS Not Given DAILY BENJY Pantoprazole Sodium 40 mg 04/29/19 09:00 05/07/19 09:49 Protonix IVP 40 mg DAILY BENJY Administration Pyridoxine HCl 50 mg 04/28/19 15:00 05/07/19 15:12 Vitamin B 6 PO Not Given TID BENJY Sertraline HCl 25 mg 05/04/19 09:00 05/07/19 10:06 Zoloft PO 25 mg DAILY BENJY Administration Sodium Chloride 10 ml 04/24/19 03:18 05/04/19 09:32 Normal Saline Pf FS 10 ml PRN PRN Administration RECONSTITUTION Spironolactone 25 mg 04/28/19 08:00 05/07/19 10:20 Aldactone PO 25 mg QAM-WM BENJY Administration - Exam General Appearance: NAD, awake alert Eye: PERRL, anicteric sclera ENT: normocephalic atraumatic, no oropharyngeal lesions Neck: supple, symmetric, no JVD, no thyromegaly Heart: RRR, no gallops, no rubs, normal peripheral pulses Respiratory: CTAB, no wheezes, no rales, no ronchi Gastrointestinal: soft, non-tender, non-distended, normal bowel sounds, no palpable masses Extremities: no cyanosis, no clubbing, 1+ LE edema Skin: normal turgor, no lesions Neurological: cranial nerve grossly intact, no new deficit Musculoskeletal: normal tone, generalized weakness Psychiatric: oriented to person Hosp A/P (1) Hypotension Status: Acute Qualifiers: Hypotension type: hypotension due to drug Qualified Code(s): I95.2 - Hypotension due to drugs Plan: Likely iatrogenic, decrease Entresto, hold Coreg (2) Syncope and collapse Code(s): R55 - SYNCOPE AND COLLAPSE Status: Acute (3) Physical deconditioning Code(s): R53.81 - OTHER MALAISE Status: Acute (4) Cardiomyopathy Code(s): I42.9 - CARDIOMYOPATHY, UNSPECIFIED Status: Acute Plan: EF improved to 50-55%, continue serial Echo monitoring, decrease Entresto dose (5) Adenocarcinoma, colon Code(s): C18.9 - MALIGNANT NEOPLASM OF COLON, UNSPECIFIED Status: Acute (6) Pulmonary emboli Code(s): I26.99 - OTHER PULMONARY EMBOLISM WITHOUT ACUTE COR PULMONALE Status : Acute Plan: Continue Eliquis - Plan 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
[2019-05-07] MEDS: Sodium Chloride 0.9% 1,000 ML IV SCH (15:23)
[2019-05-07 16:39] LABS: Anion Gap 14 mmol/L (10-20); BUN (Urea Nitrogen) 31 mg/dL (9.8-20.1); Calc. Creatinine Clearance 129 mL/min (70-130); Calcium 8.7 mg/dL (7.8-10.44); Carbon Dioxide 16 mmol/L (23-31); Chloride 103 mmol/L (98-107); Estimated GFR-MDRD 79; Glucose 120 mg/dL (83-110); Potassium 5.3 mmol/L (3.5-5.1); Sodium 128 mmol/L (136-145)
[2019-05-07] MEDS: Atorvastatin Calcium 40 MG TAB PO SCH (20:15)
[2019-05-08] MEDS: Sodium Chloride 0.9% 1,000 ML IV SCH ×2 (02:07→10:25)
[2019-05-08 04:27] LABS: Anion Gap 11 mmol/L (10-20); BUN (Urea Nitrogen) 30 mg/dL (9.8-20.1); Calc. Creatinine Clearance 129 mL/min (70-130); Calcium 8.3 mg/dL (7.8-10.44); Carbon Dioxide 20 mmol/L (23-31); Chloride 101 mmol/L (98-107); Estimated GFR-MDRD 79; Glucose 113 mg/dL (83-110); Potassium 4.5 mmol/L (3.5-5.1); Sodium 127 mmol/L (136-145)
[2019-05-08 05:07] LABS: Band 4 % (5-11); Hemoglobin 9.1 g/dL (12.0-16.0); Lymphocytes 44 % (21-51); MDiff Complete? YES; Mean Corpuscular HGB CONC 34.6 g/dL (32.0-36.0); Mean Corpuscular Hemoglobin 29.5 pg (27.0-31.0); Mean Corpuscular Volume 85.4 fL (78.0-98.0); Mean Platelet Volume 8.9 fL (7.4-10.4); Monocytes 12 % (0-10); Neutrophil 40 % (42-75); Platelet Count 101 thou/uL (130-400); Platelet Morphology Comment Appears Decreased; RBC Distribution Width 17.7 % (11.5-14.5); Red Blood Cell (RBC) Count 3.07 mill/uL (4.20-5.40); White Blood Cell (WBC) Count 2.8 thou/uL (4.8-10.8)
--- NOTE | 2019-05-08 09:32 | PRG ---
DATE OF SERVICE: 05/08/2019 SUBJECTIVE: The patient is resting comfortably without complaint. OBJECTIVE: VITAL SIGNS: On exam, temperature is 97, pulse 76, blood pressure 92/59, and O2 saturation 97%. HEENT: Unremarkable. NECK: No adenopathy or JVD. LUNGS: Clear. CARDIAC: S1 and S2. Regular. ABDOMEN: Soft. EXTREMITIES: No edema. LABORATORY DATA: White blood cell count 2.8, hematocrit 26.2, and platelet count 101. Sodium 127, potassium 4.5, chloride 101, CO2 of 20, BUN 30, creatinine 0.7, and glucose 112. ASSESSMENT: 1. Recent pulmonary embolism. 2. Hypotension. 3. Anemia. PLAN: It looks like her blood pressure medicine has been decreased. Continuing the anticoagulation for pulmonary embolism. May need an evaluation of her anemia. No further Pulmonary recommendations at this time. She seems stable enough to move out to telemetry. Job ID: [id number]
[2019-05-08] MEDS: D5W-AA 4.25% with LYTES 1,000 ML IV SCH (09:35)
[2019-05-08] MEDS: Oxymetazoline HCl 0.05% (30 ML BOT) NS SCH (10:16)
[2019-05-08] MEDS: Spironolactone 25 MG TAB PO SCH (10:24)
[2019-05-08] MEDS: Famotidine 20 MG TAB PO SCH ×2 (10:24→21:21)
[2019-05-08] MEDS: pyridOXINE 50 MG (B6) TAB PO SCH ×3 (10:24→22:43)
[2019-05-08] MEDS: Aspirin 81 mg Enteric Coated Tablet PO SCH (10:24)
[2019-05-08] MEDS: Apixaban 5 MG TAB PO SCH ×2 (10:24→21:21)
[2019-05-08] MEDS: Megestrol Acetate 40 MG TAB PO SCH ×2 (10:25→21:22)
[2019-05-08] MEDS: Pantoprazole 40 MG VIAL IVP SCH (10:26)
--- NOTE | 2019-05-08 16:47 | PDOC.HOSPP ---
- Subjective Encounter Date: 05/08/19 Encounter Time: 16:35 Subjective: f/u for AMS and hypotension now resolved. BP meds reduced and trend overall improved. Still receiving PPN since 05/01/19 and minimal po intake per nursing. Not ambulating per patient and nursing. - Objective Vital Signs & Weight: Vital Signs (12 hours) Temp Pulse Ox 05/08/19 15:28 97.6 F 05/08/19 11:48 97.4 F L 05/08/19 08:00 97 05/08/19 07:26 97.0 F L Weight Admit Weight 251 lb 5.231 oz Weight 253 lb 8 oz Most Recent Monitor Data Heart Rate from ECG 73 NIBP 146/82 NIBP BP-Mean 103 Respiration from ECG 15 SpO2 99 I&O: 05/07/19 05/08/19 05/09/19 06:59 06:59 06:59 Intake Total 1000 4260 Output Total 1300 1700 Balance -300 2560 Result Diagrams: 05/08/19 03:35 05/08/19 03:35 Additional Labs: Microbiology 04/23/19 20:33 Venous blood - Right Hand Blood Culture - Final NO GROWTH IN 5 DAYS 04/23/19 20:03 Urine Straight Catheter Urine Culture - Final NO GROWTH AT 36 HOURS 04/23/19 19:53 Nasal swab Influenza Types A,B Direct EIA - Final 04/23/19 19:43 Venous blood - Left Hand Blood Culture - Final NO GROWTH IN 5 DAYS EKG Reviewed by me: Yes (Tele - SR) Hospitalist ROS - Medication Medications: Active Medications Generic Name Dose Route Start Last Admin Trade Name Freq PRN Reason Stop Dose Admin Apixaban 5 mg 05/02/19 21:00 05/08/19 10:24 Eliquis PO 5 mg BID BENJY Administration Aspirin 81 mg 04/28/19 09:00 05/08/19 10:24 Ecotrin PO 81 mg DAILY BENJY Administration Atorvastatin Calcium 40 mg 04/27/19 21:00 05/07/19 20:15 Lipitor PO 40 mg HS BENJY Administration Famotidine 20 mg 04/28/19 21:00 05/08/19 10:24 Pepcid PO 20 mg BID BENJY Administration Megestrol Acetate 40 mg 05/06/19 21:00 05/08/19 10:25 Megace PO 40 mg BID BNEJY Administration Oxymetazoline HCl 0 ml 04/28/19 09:00 05/08/19 10:16 Nasal Decongestant NS Not Given DAILY BENJY Pantoprazole Sodium 40 mg 04/29/19 09:00 05/08/19 10:26 Protonix IVP 40 mg DAILY BENJY Administration Pyridoxine HCl 50 mg 04/28/19 15:00 05/08/19 13:51 Vitamin B 6 PO Not Given TID BENJY Sacubitril/Valsartan 1 tab 05/07/19 21:00 05/08/19 10:24 Entresto 24 Mg-26 Mg Tablet PO 1 tab BID BENJY Administration Sertraline HCl 25 mg 05/04/19 09:00 05/08/19 10:25 Zoloft PO 25 mg DAILY BENJY Administration Sodium Chloride 10 ml 04/24/19 03:18 05/04/19 09:32 Normal Saline Pf FS 10 ml PRN PRN Administration RECONSTITUTION Spironolactone 25 mg 04/28/19 08:00 05/08/19 10:24 Aldactone PO 25 mg QAM-WM BENJY Administration - Exam General - other findings: sleepy, answers questions briefly Eye: PERRL, anicteric sclera ENT: normocephalic atraumatic, no oropharyngeal lesions Neck: supple, symmetric, no JVD, no thyromegaly Heart: RRR, no gallops, no rubs, normal peripheral pulses Heart - other findings: S1, S2 Respiratory: CTAB, no wheezes, no rales, no ronchi, normal chest expansion Gastrointestinal: soft, non-tender, non-distended, normal bowel sounds, no palpable masses Gastrointestinal - other findings: obese Extremities: 1+ LE edema Skin: normal turgor, no lesions Neurological: cranial nerve grossly intact, no new deficit Musculoskeletal: normal tone, generalized weakness Psychiatric: oriented to person, oriented to place, oriented to time Hosp A/P (1) Hypotension Status: Acute Qualifiers: Hypotension type: hypotension due to drug Qualified Code(s): I95.2 - Hypotension due to drugs Plan: resolved, continue current BP regimen, saline lock IVF's (2) Syncope and collapse Code(s): R55 - SYNCOPE AND COLLAPSE Status: Acute (3) Physical deconditioning Code(s): R53.81 - OTHER MALAISE Status: Acute Plan: PT for mobilization and OOB, likely will need NH/SNF placement (4) Cardiomyopathy Code(s): I42.9 - CARDIOMYOPATHY, UNSPECIFIED Status: Acute (5) Adenocarcinoma, colon Code(s): C18.9 - MALIGNANT NEOPLASM OF COLON, UNSPECIFIED Status: Acute (6) Pulmonary emboli Code(s): I26.99 - OTHER PULMONARY EMBOLISM WITHOUT ACUTE COR PULMONALE Status : Acute Plan: Continue Eliquis - Plan 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
[2019-05-08] MEDS: Atorvastatin Calcium 40 MG TAB PO SCH (21:21)
[2019-05-09 04:29] LABS: Reticulocyte Count 0.9 % (0.5-1.5)
[2019-05-09 04:31] LABS: Anion Gap 10 mmol/L (10-20); BUN (Urea Nitrogen) 24 mg/dL (9.8-20.1); Calc. Creatinine Clearance 125 mL/min (70-130); Calcium 8.3 mg/dL (7.8-10.44); Carbon Dioxide 19 mmol/L (23-31); Chloride 101 mmol/L (98-107); Estimated GFR-MDRD 78; Glucose 95 mg/dL (83-110); Iron 49 ug/dL (50-170); Potassium 4.1 mmol/L (3.5-5.1); Sodium 126 mmol/L (136-145)
[2019-05-09 04:59] LABS: Anisocytosis SLIGHT = 6-15 cells (100X) (0-5/hpf); Band 12 % (5-11); Elliptocytes SLIGHT = 2-5 cells (100X) (0-1/hpf); Hemoglobin 9.2 g/dL (12.0-16.0); Lymphocytes 34 % (21-51); MDiff Complete? YES; Mean Corpuscular HGB CONC 34.8 g/dL (32.0-36.0); Mean Corpuscular Hemoglobin 29.5 pg (27.0-31.0); Mean Platelet Volume 8.8 fL (7.4-10.4); Monocytes 11 % (0-10); Neutrophil 43 % (42-75); Platelet Count 94 thou/uL (130-400); Platelet Morphology Comment Appears Decreased; RBC Distribution Width 17.5 % (11.5-14.5); White Blood Cell (WBC) Count 2.9 thou/uL (4.8-10.8)
--- NOTE | 2019-05-09 08:09 | PRG ---
DATE OF SERVICE: 05/09/2019 SUBJECTIVE: She seems to be doing well. Had no acute complaints. OBJECTIVE: VITAL SIGNS: On exam, temperature 97.6, pulse 74, and blood pressure 136/79. HEENT: Unremarkable. NECK: No adenopathy or JVD. LUNGS: Clear. CARDIAC: S1 and S2. Regular. ABDOMEN: Soft. EXTREMITIES: Bruised. LABORATORY DATA: White blood cell count 2.9, hematocrit 26.3, and platelet count 94. Sodium of 126, potassium 4.1, chloride 101, CO2 of 19, BUN 24, creatinine 0.7, and glucose 95. ASSESSMENT AND PLAN: The patient seems to be doing reasonably well from a blood pressure standpoint. She is continuing anticoagulation for recent pulmonary embolism. Her anemia continues to be of concern. It is also noted that she is hyponatremic that probably needs to be addressed by the Primary Team and Cardiology as she is currently on diuretics. Job ID: [id number]
[2019-05-09] MEDS ORDERED: Ondansetron PF 4 MG/2 ML Vial IVP PRN (10:36)
[2019-05-09] MEDS: Pantoprazole 40 MG VIAL IVP SCH (12:08)
[2019-05-09] MEDS: Apixaban 5 MG TAB PO SCH ×2 (12:40→21:24)
[2019-05-09] MEDS: Aspirin 81 mg Enteric Coated Tablet PO SCH (12:40)
[2019-05-09] MEDS: Famotidine 20 MG TAB PO SCH (12:40)
[2019-05-09] MEDS: Oxymetazoline HCl 0.05% (30 ML BOT) NS SCH (12:41)
[2019-05-09] MEDS: pyridOXINE 50 MG (B6) TAB PO SCH ×3 (12:41→21:25)
[2019-05-09] MEDS: Megestrol Acetate 40 MG TAB PO SCH ×2 (12:41→21:24)
[2019-05-09] MEDS: Spironolactone 25 MG TAB PO SCH (12:43)
--- NOTE | 2019-05-09 15:58 | PDOC.HOSPP ---
- Subjective Encounter Date: 05/09/19 Encounter Time: 15:45 Subjective: f/u for recent hypotension likely iatrogenic resolving. Poor po intake per nursing with PPN given for 7 days until the last 24h. Pt states she is not interested in eating and has some intermittent nausea. - Objective Vital Signs & Weight: Vital Signs (12 hours) Temp Pulse Pulse BP BP Pulse Ox 05/09/19 11:57 97.6 F 05/09/19 09:20 105 H 87 137/89 133/65 05/09/19 08:00 98 05/09/19 07:39 97.6 F 05/09/19 04:15 97.7 F Weight Admit Weight 251 lb 5.231 oz Weight 253 lb 14.4 oz Most Recent Monitor Data Heart Rate from ECG 77 NIBP 105/79 NIBP BP-Mean 87 Respiration from ECG 16 SpO2 95 I&O: 05/08/19 05/09/19 05/10/19 06:59 06:59 06:59 Intake Total 4260 2015 Output Total 1700 2300 Balance 2560 -285 Result Diagrams: 05/09/19 03:48 05/09/19 03:48 Additional Labs: Microbiology 04/23/19 20:33 Venous blood - Right Hand Blood Culture - Final NO GROWTH IN 5 DAYS 04/23/19 20:03 Urine Straight Catheter Urine Culture - Final NO GROWTH AT 36 HOURS 04/23/19 19:53 Nasal swab Influenza Types A,B Direct EIA - Final 04/23/19 19:43 Venous blood - Left Hand Blood Culture - Final NO GROWTH IN 5 DAYS Laboratory Tests 05/06/19 05/07/19 05/08/19 19:59 16:12 03:35 WBC 2.8 L Hgb 9.3 L Plt Count 96 L Sodium 128 L 127 L Iron Ferritin 05/08/19 05/09/19 05/09/19 03:35 03:48 03:48 WBC 2.8 L Hgb 9.1 L Plt Count 101 L Sodium Iron 49 L Ferritin 451.76 H EKG Reviewed by me: Yes (Tele - SR) Hospitalist ROS - Medication Medications: Active Medications Generic Name Dose Route Start Last Admin Trade Name Freq PRN Reason Stop Dose Admin Apixaban 5 mg 05/02/19 21:00 05/09/19 12:40 Eliquis PO Not Given BID BENJY Aspirin 81 mg 04/28/19 09:00 03/17/20 12:40 Ecotrin PO Not Given DAILY [facility] Atorvastatin Calcium 40 mg 04/27/19 21:00 05/08/19 21:21 Lipitor PO 40 mg HS BENJY Administration Famotidine 20 mg 04/28/19 21:00 05/09/19 12:40 Pepcid PO Not Given BID [facility] Megestrol Acetate 40 mg 05/06/19 21:00 05/09/19 12:41 Megace PO Not Given BID [facility] Ondansetron HCl 4 mg 05/09/19 10:36 05/09/19 10:57 Zofran IVP 4 mg Q6H PRN Administration Nausea/Vomiting Oxymetazoline HCl 0 ml 04/28/19 09:00 05/09/19 12:41 Nasal Decongestant NS Not Given DAILY [facility] Pantoprazole Sodium 40 mg 04/29/19 09:00 05/09/19 12:08 Protonix IVP 40 mg DAILY [facility] Administration Pyridoxine HCl 50 mg 04/28/19 15:00 05/09/19 12:41 Vitamin B 6 PO Not Given TID [facility] Sacubitril/Valsartan 1 tab 05/07/19 21:00 05/09/19 12:41 Entresto 24 Mg-26 Mg Tablet PO Not Given BID [facility] Sertraline HCl 25 mg 05/04/19 09:00 05/09/19 12:42 Zoloft PO Not Given DAILY [facility] Sodium Chloride 10 ml 04/24/19 03:18 05/04/19 09:32 Normal Saline Pf FS 10 ml PRN PRN Administration RECONSTITUTION - Exam General Appearance: awake alert General - other findings: states a few words, active emesis Eye: PERRL, anicteric sclera ENT: normocephalic atraumatic, no oropharyngeal lesions Neck: supple, symmetric, no JVD, no thyromegaly, no lymphadenopathy Heart: RRR, no murmur, no gallops, no rubs, normal peripheral pulses Respiratory: CTAB, no wheezes, no rales, no ronchi, normal chest expansion Gastrointestinal: soft, non-tender, non-distended, normal bowel sounds, no palpable masses Extremities: no cyanosis, no clubbing, 1+ LE edema Neurological: no new deficit Musculoskeletal: normal tone, generalized weakness Psychiatric: oriented to person, flat affect, somnolent Hosp A/P (1) Nausea & vomiting Code(s): R11.2 - NAUSEA WITH VOMITING, UNSPECIFIED Status: Chronic Plan: unclear etiology, increase Zofran 8mg IV q6h prn, consider trial of Reglan, add Scopolamine patch, check KUB to r/o obstruction (2) Anorexia Code(s): R63.0 - ANOREXIA Status: Acute Plan: Unclear etiology, Palliative care with family meeting potentially 05/10/19, ? PEG tube vs palliative measures (3) Hypotension Status: Acute Qualifiers: Hypotension type: hypotension due to drug Qualified Code(s): I95.2 - Hypotension due to drugs (4) Syncope and collapse Code(s): R55 - SYNCOPE AND COLLAPSE Status: Acute (5) Physical deconditioning Code(s): R53.81 - OTHER MALAISE Status: Acute (6) Cardiomyopathy Code(s): I42.9 - CARDIOMYOPATHY, UNSPECIFIED Status: Acute (7) Adenocarcinoma, colon Code(s): C18.9 - MALIGNANT NEOPLASM OF COLON, UNSPECIFIED Status: Acute (8) Pulmonary emboli Code(s): I26.99 - OTHER PULMONARY EMBOLISM WITHOUT ACUTE COR PULMONALE Status : Acute - Plan 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
--- NOTE | 2019-05-09 16:27 | PQF ---
CLINICAL DOCUMENTATION IMPROVEMENT CLARIFICATION FORM: ICD-10 Updated PLEASE DO AN ADDENDUM TO THE PROGRESS NOTE WITH ANY DOCUMENTATION UPDATES OR ADDITIONS AND CARRY THROUGH TO DC SUMMARY. THANK YOU. DATE: 05/09/2019 ATTN: Dr. Bonner Please exercise your independent, professional judgment in responding to the clarification form. Clinical indicators are provided on the bottom of this form for your review Please check appropriate box(s): [ x ] Encephalopathy: Etiology: [ x ] Metabolic [ ] Toxic [ ] Drug induced: [ ] Unspecified [ ] Other (please specify) [ ] Other diagnosis [ ] Unable to determine In addition, please specify: Present on Admission (POA): [ ] Yes [ x ] No [ ] Unable to determine For continuity of documentation, please document condition throughout progress notes and discharge summary. Thank You. CLINICAL INDICATORS - SIGNS / SYMPTOMS / LABS / RESULTS AND LOCATION IN EMR 05/06 (Ha): f/u for hypotension with acute encephalopathy now resolving. A/P: Hypotension due to drugs. Likely iatrogenic, decrease Entresto, hold Coreg. RISKS: 05/06 (Ha) Hypotension. Physical deconditioning. Adenocarcinoma, colon, Pulmonary emboli. TREATMENT: 05/06 (Ha) Transferred to [facility]. Received IVF's and was held on BP meds. Continue nutrition support with PPN, encourage increased po intake. Thank you, Lidia (This form is maintained as a part of the permanent medical record) 2014 [employer]. All Rights Reserved Lidia Blue RN, BSN [email or web address] Office: [phone] [facility]
--- NOTE | 2019-05-09 17:51 | PDOC.PALCO ---
Palliative Care Consult - Allergies Allergies/Adverse Reactions: Allergies Allergy/AdvReac Type Severity Reaction Status Date / Time ciprofloxacin [From Cipro] Allergy Verified 04/24/19 08:48 Iodine and Iodide Containing Allergy Verified 04/24/19 08:48 Produc - Objective Vital Signs: Vital Signs - Most Recent Temp Pulse Resp BP Pulse Ox 97.5 F L 105 H 12 137/89 98 05/09/19 16:00 05/09/19 09:20 05/06/19 23:30 05/09/19 09:20 05/09/19 08:00 - Plan/Recommendations Plan: [] minutes spent on this encounter with >50% of the time in counseling and coordination of care. Thank you for this very appropriate consult.
--- NOTE | 2019-05-09 17:53 | PDOC.PALPN ---
Palliative Progress Note - Subjective Mildly lethargic, poor appetite, no family at bedside. Difficult to perform accurate ROS as patient confused. - Objective Vital Signs: Vital Signs - Most Recent Temp Pulse Resp BP Pulse Ox 97.5 F L 105 H 12 137/89 98 05/09/19 16:00 05/09/19 09:20 05/06/19 23:30 05/09/19 09:20 05/09/19 08:00 - Physical Exam Constitutional: confusion, ill appearing HEENT: moist MMs, sclera anicteric Respiratory: no rhonchi, no wheezing, unlabored breathing Cardiovascular: RRR Gastrointestinal: soft, non-tender, incontinent Deviation from normal: purewic Musculoskeletal: pulses present, edema present Neurology: moves all 4 limbs Skin: bruising, fragile Psychiatric: flat affect Deviation from normal: Oreinted to self, confused as to place and time - Plan Plan: Will attempt to meet with tomorrow 05/10/2019 to revisit goals of car as patient confused. Palliative Care will continue to assist patient and family through identification of Goal of Care, assistance with complex decision making and emotional support. [30] minutes spent on this encounter with >50% of the time in counseling and coordination of care. - ROS Non Response: due to mental status
[2019-05-09] MEDS ORDERED: Bisacodyl 10 MG SUPP PR PRN (18:38)
[2019-05-09] MEDS: Dextrose 5 % And 0.9 % NaCl 1,000 ML IV SCH (19:12)
[2019-05-09] MEDS: Scopolamine 1.5 mg/72 hour Patch TD SCH (19:13)
--- NOTE | 2019-05-09 19:50 | RAD ---
SUPINE ABDOMEN: 05/09/19 INDICATIONS: Vomiting. Question obstruction. FINDINGS: There is scattered gas throughout the colon. No significant small bowel gas. No evidence of small bow el obstruction on this single view study. IMPRESSION: Unremarkable bowel gas pattern. POS: ONDINA
[2019-05-09] MEDS: Ondansetron PF 4 MG/2 ML Vial IVP PRN (21:21)
[2019-05-09] MEDS: Atorvastatin Calcium 40 MG TAB PO SCH (21:24)
[2019-05-10 04:20] LABS: Band 6 % (5-11); Hemoglobin 8.8 g/dL (12.0-16.0); Lymphocytes 25 % (21-51); MDiff Complete? YES; Mean Corpuscular HGB CONC 35.8 g/dL (32.0-36.0); Mean Corpuscular Hemoglobin 30.6 pg (27.0-31.0); Mean Corpuscular Volume 85.5 fL (78.0-98.0); Mean Platelet Volume 7.6 fL (7.4-10.4); Monocytes 10 % (0-10); Neutrophil 59 % (42-75); Platelet Count 92 thou/uL (130-400); Platelet Morphology Comment Appears Decreased; RBC Distribution Width 17.5 % (11.5-14.5); Red Blood Cell (RBC) Count 2.86 mill/uL (4.20-5.40)
[2019-05-10 04:25] LABS: ALT (SGPT) 34 U/L (8-55); AST (SGOT) 29 U/L (5-34); Albumin 2.3 g/dL (3.4-4.8); Alkaline Phosphatase 66 U/L (40-110); Anion Gap 10 mmol/L (10-20); BUN (Urea Nitrogen) 20 mg/dL (9.8-20.1); Bilirubin, Total 1.3 mg/dL (0.2-1.2); Calc. Creatinine Clearance 128 mL/min (70-130); Calcium 8.1 mg/dL (7.8-10.44); Carbon Dioxide 18 mmol/L (23-31); Chloride 102 mmol/L (98-107); Estimated GFR-MDRD 81; Globulin 2.2 g/dL (2.4-3.5); Glucose 119 mg/dL (83-110); Lipase 24 U/L (8-78); Protein, Total 4.5 g/dL (6.0-8.3); Sodium 126 mmol/L (136-145)
[2019-05-10] MEDS: Dextrose 5 % And 0.9 % NaCl 1,000 ML IV SCH ×2 (04:29→15:13)
[2019-05-10] MEDS: Aspirin 81 mg Enteric Coated Tablet PO SCH (10:13)
[2019-05-10] MEDS: Apixaban 5 MG TAB PO SCH (10:13)
[2019-05-10] MEDS: pyridOXINE 50 MG (B6) TAB PO SCH ×3 (10:14→19:48)
[2019-05-10] MEDS: Megestrol Acetate 40 MG TAB PO SCH ×2 (10:14→19:48)
[2019-05-10] MEDS: Oxymetazoline HCl 0.05% (30 ML BOT) NS SCH (10:15)
[2019-05-10] MEDS: Pantoprazole 40 MG VIAL IVP SCH (10:15)
[2019-05-10] MEDS: Ondansetron PF 4 MG/2 ML Vial IVP PRN (10:17)
--- NOTE | 2019-05-10 10:59 | PDOC.PALPN ---
Palliative Progress Note - Subjective at bedside. Less confused, but remains lethargic. Dinner tray from night before remains at bedside with less than 10% off of tray.Denies complaints. - Objective Vital Signs: Vital Signs - Most Recent Temp Pulse Resp BP Pulse Ox 97.4 F L 105 H 12 137/89 98 05/10/19 03:37 05/09/19 09:20 05/06/19 23:30 05/09/19 09:20 05/09/19 08:00 - Physical Exam Constitutional: confusion, ill appearing HEENT: EOMI, moist MMs, sclera anicteric Respiratory: clear to auscultation bilateral, unlabored breathing, diminished lung sound Cardiovascular: RRR Gastrointestinal: soft, non-tender, incontinent Genitourinary: incontinent Deviation from normal: purewick, clear urine Musculoskeletal: edema present Neurology: moves all 4 limbs, no focal deficits Skin: cap refill <2 seconds, no lesions, no rash Psychiatric: flat affect Deviation from normal: oriented to self, aware of . - Assessment (1) Palliative care encounter Code(s): Z51.5 - ENCOUNTER FOR PALLIATIVE CARE Current Visit: Yes Status: Acute (2) Depressed affect Code(s): R45.89 - OTHER SYMPTOMS AND SIGNS INVOLVING EMOTIONAL STATE Current Visit: Yes Status: Acute (3) Adenocarcinoma, colon Code(s): C18.9 - MALIGNANT NEOPLASM OF COLON, UNSPECIFIED Current Visit: Yes Status: Acute (4) Anorexia Code(s): R63.0 - ANOREXIA Current Visit: Yes Status: Acute (5) Physical deconditioning Code(s): R53.81 - OTHER MALAISE Current Visit: Yes Status: Acute (6) Nausea & vomiting Code(s): R11.2 - NAUSEA WITH VOMITING, UNSPECIFIED Current Visit: Yes Status : Chronic - Plan Plan: revisited conversation in relation to PEG verses comfort measures as well as discharge plan/goal of care. tearful, Mrs Quintero did not respond to conversation, flat affect. Will follow up to revisit Goal of care as well as resuscitation status. Communicated with CM, Dr Bonner. Will also communicate with Spiritual Care for additional emotional and spiritual support for patient and spouse. [45] minutes spent on this encounter with >50% of the time in counseling and coordination of care. - ROS Non Response: due to mental status
--- NOTE | 2019-05-10 13:49 | PDOC.HOSPP ---
- Subjective Encounter Date: 05/10/19 Encounter Time: 13:35 Subjective: f/u for anorexia, intermittent N/V and general poor overall po intake. agreeable to pursuing PEG tube placement for nutritional support. - Objective Vital Signs & Weight: Vital Signs (12 hours) Temp 05/10/19 12:00 97.1 F L 05/10/19 08:00 97.6 F 05/10/19 03:37 97.4 F L Weight Admit Weight 251 lb 5.231 oz Weight 250 lb Most Recent Monitor Data Heart Rate from ECG 71 NIBP 157/87 NIBP BP-Mean 110 Respiration from ECG 12 SpO2 97 I&O: 05/09/19 05/10/19 05/11/19 06:59 06:59 06:59 Intake Total 2014 1265 Output Total 0 1375 Balance -285 -109 Result Diagrams: 05/10/19 03:35 05/10/19 03:35 Additional Labs: Microbiology 04/23/19 20:33 Venous blood - Right Hand Blood Culture - Final NO GROWTH IN 5 DAYS 04/23/19 20:03 Urine Straight Catheter Urine Culture - Final NO GROWTH AT 36 HOURS 04/23/19 19:53 Nasal swab Influenza Types A,B Direct EIA - Final 04/23/19 19:43 Venous blood - Left Hand Blood Culture - Final NO GROWTH IN 5 DAYS Laboratory Tests 05/06/19 05/07/19 05/08/19 19:59 16:12 03:35 WBC 2.8 L Hgb 9.3 L Plt Count 96 L Sodium 128 L 127 L Iron Ferritin 05/08/19 05/09/19 05/09/19 03:35 03:48 03:48 WBC 2.8 L Hgb 9.1 L Plt Count 101 L Sodium Iron 49 L Ferritin 451.76 H Radiology Reviewed by me: Yes (ABD x-ray - negative) EKG Reviewed by me: Yes (Tele - SR) Hospitalist ROS - Medication Medications: Active Medications Generic Name Dose Route Start Last Admin Trade Name Freq PRN Reason Stop Dose Admin Apixaban 5 mg 05/02/19 21:00 05/10/19 10:13 Eliquis PO 5 mg BID BENJY Administration Aspirin 81 mg 04/28/19 09:00 05/10/19 10:13 Ecotrin PO 81 mg DAILY BENJY Administration Atorvastatin Calcium 40 mg 04/27/19 21:00 05/09/19 21:24 Lipitor PO 40 mg HS BENJY Administration Dextrose/Sodium Chloride 1,000 mls @ 100 mls/hr 05/09/19 18:45 05/10/19 04:29 D5 0.9% Ns IV 1,000 mls .Q10H BENJY Administration Megestrol Acetate 40 mg 05/06/19 21:00 05/10/19 10:14 Megace PO 40 mg BID BENJY Administration Ondansetron HCl 8 mg 05/09/19 18:40 05/10/19 10:17 Zofran IVP 8 mg Q6H PRN Administration Nausea/Vomiting Oxymetazoline HCl 0 ml 04/28/19 09:00 05/10/19 10:15 Nasal Decongestant NS Not Given DAILY BENJY Pantoprazole Sodium 40 mg 04/29/19 09:00 05/10/19 10:15 Protonix IVP 40 mg DAILY BENJY Administration Pyridoxine HCl 50 mg 04/28/19 15:00 05/10/19 10:14 Vitamin B 6 PO 50 mg TID BENJY Administration Sacubitril/Valsartan 1 tab 05/07/19 21:00 05/10/19 10:13 Entresto 24 Mg-26 Mg Tablet PO 1 tab BID BENJY Administration Scopolamine 1.5 mg 05/09/19 18:45 05/09/19 19:13 Transderm Scop TD 1.5 mg Q3D BENJY Administration Sertraline HCl 25 mg 05/04/19 09:00 05/10/19 10:13 Zoloft PO 25 mg DAILY BENJY Administration Sodium Chloride 10 ml 04/24/19 03:18 05/04/19 09:32 Normal Saline Pf FS 10 ml PRN PRN Administration RECONSTITUTION - Exam General - other findings: sleeping, awakes briefly to name Eye: PERRL, anicteric sclera ENT: normocephalic atraumatic, no oropharyngeal lesions Neck: supple, symmetric, no JVD, no thyromegaly, no lymphadenopathy Heart: RRR, no murmur, no gallops, no rubs, normal peripheral pulses Respiratory: CTAB, no wheezes, no rales, no ronchi, normal chest expansion Gastrointestinal: soft, non-tender, non-distended, normal bowel sounds, no palpable masses Extremities: no cyanosis, no clubbing, 1+ LE edema Skin: normal turgor, no lesions Neurological: no new deficit Musculoskeletal: generalized weakness Psychiatric: oriented to person, flat affect, somnolent, lethargic Hosp A/P (1) Nausea & vomiting Code(s): R11.2 - NAUSEA WITH VOMITING, UNSPECIFIED Status: Chronic Plan: Intermittent, improved today with Scopolamine, likely a chronic condition (2) Anorexia Code(s): R63.0 - ANOREXIA Status: Acute Plan: Unclear etiology, recommend PEG tube placement for nutritional support (3) Hypotension Status: Acute Qualifiers: Hypotension type: hypotension due to drug Qualified Code(s): I95.2 - Hypotension due to drugs (4) Syncope and collapse Code(s): R55 - SYNCOPE AND COLLAPSE Status: Acute (5) Physical deconditioning Code(s): R53.81 - OTHER MALAISE Status: Acute (6) Cardiomyopathy Code(s): I42.9 - CARDIOMYOPATHY, UNSPECIFIED Status: Acute (7) Adenocarcinoma, colon Code(s): C18.9 - MALIGNANT NEOPLASM OF COLON, UNSPECIFIED Status: Acute (8) Pulmonary emboli Code(s): I26.99 - OTHER PULMONARY EMBOLISM WITHOUT ACUTE COR PULMONALE Status : Acute - Plan plan discussed w/ family, PT/OT, rn social services, DVT proph w/SCDs Consults: Palliative Care Continue supportive mgmt Continue Eliquis 5mg BID Decrease Compazine Increase Megace 40mg BID Saline Lock IVF's, d/c PPN CM for NH/SNF options, likely swing bed in [place] Decrease Entresto Hold Coreg Consult GI for PEG tube placement
--- NOTE | 2019-05-10 14:01 | PDOC.FMACP ---
Advance Care Planning - Problem (1) Nausea & vomiting Status: Chronic Code(s): R11.2 - NAUSEA WITH VOMITING, UNSPECIFIED (2) Anorexia Status: Acute Code(s): R63.0 - ANOREXIA (3) Hypotension Status: Acute Qualifiers: Hypotension type: hypotension due to drug Qualified Code(s): I95.2 - Hypotension due to drugs (4) Syncope and collapse Status: Acute Code(s): R55 - SYNCOPE AND COLLAPSE (5) Physical deconditioning Status: Acute Code(s): R53.81 - OTHER MALAISE (6) Cardiomyopathy Status: Acute Code(s): I42.9 - CARDIOMYOPATHY, UNSPECIFIED (7) Adenocarcinoma, colon Status: Acute Code(s): C18.9 - MALIGNANT NEOPLASM OF COLON, UNSPECIFIED (8) Pulmonary emboli Status: Acute Code(s): I26.99 - OTHER PULMONARY EMBOLISM WITHOUT ACUTE COR PULMONALE - Note Participants: patient, surrogate decision-maker Summary: Advanced Care Planning was discussed. The diagnosis, prognosis and goals of care were discussed. Appropriate forms and documentation to accomplish the goals of care were discussed. All questions were answered. The Palliative Care Team will be engaged to assist with completion of any outstanding forms that are needed. Discussed nutritional support options and wishing to pursue PEG placement with SNF placement and eventual hospice. Ok to continue Full Code status per . Verbalized understanding of clinical decline and downward trajectory over the last 2 weeks. Total time: 18min Time Spent (mins): 18
[2019-05-10] MEDS: Atorvastatin Calcium 40 MG TAB PO SCH (19:48)
[2019-05-11] MEDS: Dextrose 5 % And 0.9 % NaCl 1,000 ML IV SCH ×3 (01:08→22:06)
[2019-05-11 04:10] LABS: Band 9 % (5-11); Hemoglobin 8.6 g/dL (12.0-16.0); Lymphocytes 27 % (21-51); MDiff Complete? YES; Mean Corpuscular HGB CONC 33.7 g/dL (32.0-36.0); Mean Corpuscular Hemoglobin 28.7 pg (27.0-31.0); Mean Corpuscular Volume 85.3 fL (78.0-98.0); Mean Platelet Volume 8.6 fL (7.4-10.4); Monocytes 8 % (0-10); Neutrophil 56 % (42-75); Platelet Count 84 thou/uL (130-400); Platelet Morphology Comment Appears Decreased; RBC Distribution Width 17.5 % (11.5-14.5); Red Blood Cell (RBC) Count 2.98 mill/uL (4.20-5.40); White Blood Cell (WBC) Count 3.1 thou/uL (4.8-10.8)
[2019-05-11] MEDS: Megestrol Acetate 40 MG TAB PO SCH ×2 (08:15→20:27)
[2019-05-11] MEDS: Aspirin 81 mg Enteric Coated Tablet PO SCH (08:15)
[2019-05-11] MEDS: Pantoprazole 40 MG VIAL IVP SCH (08:16)
[2019-05-11] MEDS: pyridOXINE 50 MG (B6) TAB PO SCH ×3 (08:16→20:26)
[2019-05-11] MEDS: Oxymetazoline HCl 0.05% (30 ML BOT) NS SCH (08:28)
--- NOTE | 2019-05-11 08:38 | PRG ---
DATE OF SERVICE: 05/11/2019 SUBJECTIVE: Ms. Quintero is doing reasonably well. PEG tube placement is expected today. OBJECTIVE: VITAL SIGNS: Temperature 97.3, pulse 76, blood pressure 132/75, and O2 saturation 96%. HEENT: Unremarkable. NECK: No adenopathy or JVD. LUNGS: Clear. CARDIAC: S1, S2. Regular. ABDOMEN: Soft. ASSESSMENT: 1. Generalized failure to thrive. 2. Stable blood pressure. 3. Anemia. PLAN: Sounds like feeding tube is planned according to nursing staff. No further recommendations. Job ID: [id number]
[2019-05-11] MEDS ORDERED: Acetaminophen/Codeine 30-300mg Tablet PO PRN ×2 (10:39)
--- NOTE | 2019-05-11 12:09 | PDOC.PALPN ---
Palliative Progress Note - Subjective More lethargic today, mildly responsive however does not open eyes during assessment. Not a reliable source for ROS secondary to lethargic state. - Objective Vital Signs: Vital Signs - Most Recent Temp Pulse Resp BP Pulse Ox 96.9 F L 105 H 12 137/89 97 05/11/19 11:22 05/09/19 09:20 05/06/19 23:30 05/09/19 09:20 05/11/19 08:00 - Physical Exam Constitutional: confusion, ill appearing HEENT: moist MMs, sclera anicteric Respiratory: no wheezing, unlabored breathing Cardiovascular: RRR Gastrointestinal: soft, non-tender, positive bowel sounds Genitourinary: incontinent Deviation from normal: purewick, clear urine Musculoskeletal: no cyanosis, no clubbing, edema present Neurology: moves all 4 limbs, no focal deficits Skin: cap refill <2 seconds, no lesions, no rash Psychiatric: flat affect - Assessment (1) Palliative care encounter Code(s): Z51.5 - ENCOUNTER FOR PALLIATIVE CARE Current Visit: Yes Status: Acute (2) Depressed affect Code(s): R45.89 - OTHER SYMPTOMS AND SIGNS INVOLVING EMOTIONAL STATE Current Visit: Yes Status: Acute (3) Adenocarcinoma, colon Code(s): C18.9 - MALIGNANT NEOPLASM OF COLON, UNSPECIFIED Current Visit: Yes Status: Acute (4) Anorexia Code(s): R63.0 - ANOREXIA Current Visit: Yes Status: Acute (5) Physical deconditioning Code(s): R53.81 - OTHER MALAISE Current Visit: Yes Status: Acute (6) Nausea & vomiting Code(s): R11.2 - NAUSEA WITH VOMITING, UNSPECIFIED Current Visit: Yes Status : Chronic - Plan Plan: Assessed patient. Communicated with Dr Bonner in relation to husbands questions related to PEG placement. Confirmed with Staff patient is not NPO, meal tray ordered. PEG anticipated to be placed Wednesday. Lengthy discussion with , he is not able to take the patient home. Desires to proceed with PEG and transition to [facility] bed. Husbands main concern is that he does not want Ms Quintero to suffer. [45] minutes spent on this encounter with >50% of the time in counseling and coordination of care. - ROS Non Response: due to mental status
--- NOTE | 2019-05-11 14:57 | PDOC.HOSPP ---
- Subjective Encounter Date: 05/11/19 Encounter Time: 14:45 Subjective: f/u for anorexia, intermittent N/V, FTT and general decline. No new changes. Considering PEG tube. - Objective Vital Signs & Weight: Vital Signs (12 hours) Temp Pulse Ox 05/11/19 11:22 96.9 F L 05/11/19 08:00 97 05/11/19 07:22 97.3 F L 05/11/19 05:13 98.3 F Weight Admit Weight 251 lb 5.231 oz Weight 259 lb Most Recent Monitor Data Heart Rate from ECG 83 NIBP 126/78 NIBP BP-Mean 94 Respiration from ECG 18 SpO2 94 I&O: 05/10/19 05/11/19 05/12/19 06:59 06:59 06:59 Intake Total 1266 3078 Output Total 1375 1450 Balance -109 1628 Result Diagrams: 05/11/19 03:07 05/10/19 03:35 Additional Labs: Microbiology 04/23/19 20:33 Venous blood - Right Hand Blood Culture - Final NO GROWTH IN 5 DAYS 04/23/19 20:03 Urine Straight Catheter Urine Culture - Final NO GROWTH AT 36 HOURS 04/23/19 19:53 Nasal swab Influenza Types A,B Direct EIA - Final 04/23/19 19:43 Venous blood - Left Hand Blood Culture - Final NO GROWTH IN 5 DAYS Laboratory Tests 05/06/19 05/07/19 05/08/19 19:59 16:12 03:35 WBC 2.8 L Hgb 9.3 L Plt Count 96 L Sodium 128 L 127 L Iron Ferritin 05/08/19 05/09/19 05/09/19 03:35 03:48 03:48 WBC 2.8 L Hgb 9.1 L Plt Count 101 L Sodium Iron 49 L Ferritin 451.76 H EKG Reviewed by me: Yes (Tele - SR) Hospitalist ROS - Medication Medications: Active Medications Generic Name Dose Route Start Last Admin Trade Name Freq PRN Reason Stop Dose Admin Apixaban 5 mg 05/02/19 21:00 05/10/19 10:13 Eliquis PO 5 mg BID BENJY Administration Aspirin 81 mg 04/28/19 09:00 05/11/19 08:15 Ecotrin PO 81 mg DAILY BENJY Administration Atorvastatin Calcium 40 mg 04/27/19 21:00 05/10/19 19:48 Lipitor PO 40 mg HS BENJY Administration Dextrose/Sodium Chloride 1,000 mls @ 100 mls/hr 05/09/19 18:45 05/11/19 12:22 D5 0.9% Ns IV 1,000 mls .Q10H BENJY Administration Megestrol Acetate 40 mg 05/06/19 21:00 05/11/19 08:15 Megace PO 40 mg BID BENJY Administration Ondansetron HCl 8 mg 05/09/19 18:40 05/10/19 10:17 Zofran IVP 8 mg Q6H PRN Administration Nausea/Vomiting Oxymetazoline HCl 0 ml 04/28/19 09:00 05/11/19 08:28 Nasal Decongestant NS 1 ml DAILY BENJY Administration Pantoprazole Sodium 40 mg 04/29/19 09:00 05/11/19 08:16 Protonix IVP 40 mg DAILY BENJY Administration Pyridoxine HCl 50 mg 04/28/19 15:00 05/11/19 08:16 Vitamin B 6 PO 50 mg TID BENJY Administration Sacubitril/Valsartan 1 tab 05/07/19 21:00 05/11/19 08:16 Entresto 24 Mg-26 Mg Tablet PO 1 tab BID BENJY Administration Scopolamine 1.5 mg 05/09/19 18:45 05/09/19 19:13 Transderm Scop TD 1.5 mg Q3D BENJY Administration Sodium Chloride 10 ml 04/24/19 03:18 05/04/19 09:32 Normal Saline Pf FS 10 ml PRN PRN Administration RECONSTITUTION - Exam General Appearance: ill appearing Eye: PERRL, anicteric sclera ENT: normocephalic atraumatic, no oropharyngeal lesions Neck: supple, symmetric, no JVD, no thyromegaly Heart: RRR, no murmur, no gallops, no rubs, normal peripheral pulses Respiratory: CTAB, no wheezes, no rales, no ronchi, normal chest expansion Gastrointestinal: soft, non-tender, non-distended, normal bowel sounds Extremities: no cyanosis, no clubbing, no edema Skin: normal turgor Musculoskeletal: generalized weakness Psychiatric: oriented to person, somnolent, lethargic Hosp A/P (1) Nausea & vomiting Code(s): R11.2 - NAUSEA WITH VOMITING, UNSPECIFIED Status: Chronic Plan: Intermittent, continue antiemetics, IVF's (2) Anorexia Code(s): R63.0 - ANOREXIA Status: Acute Plan: Plan for PEG tube placement in 48h, hold Eliquis (3) Hypotension Status: Acute Qualifiers: Hypotension type: hypotension due to drug Qualified Code(s): I95.2 - Hypotension due to drugs (4) Syncope and collapse Code(s): R55 - SYNCOPE AND COLLAPSE Status: Acute (5) Physical deconditioning Code(s): R53.81 - OTHER MALAISE Status: Acute (6) Cardiomyopathy Code(s): I42.9 - CARDIOMYOPATHY, UNSPECIFIED Status: Acute (7) Adenocarcinoma, colon Code(s): C18.9 - MALIGNANT NEOPLASM OF COLON, UNSPECIFIED Status: Acute (8) Pulmonary emboli Code(s): I26.99 - OTHER PULMONARY EMBOLISM WITHOUT ACUTE COR PULMONALE Status : Acute - Plan plan discussed w/ family, social service manager, DVT proph w/SCDs Continue supportive mgmt Hold Eliquis pending PEG insertion Decrease Compazine Increase Megace 40mg BID NS IVF CM for NH/SNF options, likely swing bed in [place] Decrease Entresto Hold Coreg Consult GI for PEG tube placement AM lab: CBC
[2019-05-11] MEDS: Atorvastatin Calcium 40 MG TAB PO SCH (20:26)
--- NOTE | 2019-05-11 21:25 | PRG ---
DATE OF SERVICE: 05/11/2019 REASON FOR CONSULTATION: Chronic nausea/vomiting, dysgeusia, parosmia, and weight loss with moderate protein calorie malnutrition. SUBJECTIVE: We were reconsulted concerning this particular patient regarding continued nausea and vomiting and decreased oral intake resulting in moderate protein calorie malnutrition. The patient continues to have significantly decreased appetite secondary to noxious taste of food as well as noxious smells that would induce nausea and vomiting. She is also exhibiting decreased desire for food as evidenced by her inability to recall her favorite food. Currently undergoing evaluation for possible percutaneous gastrostomy tube placement, at which time the patient is reluctant to proceed with this particular procedure. Otherwise, she denies any fevers, chills, hematemesis, melena, hematochezia, abdominal pain, dysphagia, or odynophagia. OBJECTIVE: VITAL SIGNS: Temperature 97.6, pulse 80, blood pressure 96/69, respiratory rate 18, saturating 96% on room air. GENERAL: The patient was lying in bed, in no acute distress. Alert and oriented x3. CARDIOVASCULAR: Regular rate and rhythm. RESPIRATORY: Clear to auscultation bilaterally. ABDOMEN: Normoactive bowel sounds. Soft, nontender, nondistended. EXTREMITIES: No cyanosis, clubbing, or edema. LABORATORY DATA: CBC with a white blood cell count of 3.1, hemoglobin 8.6, hematocrit 25.4, platelets 84. Antinuclear antibody screen negative. Heavy metal screen negative. Beta natriuretic peptide still elevated at 2160 on May 06, 2019. IMAGING DATA: MRI of the brain was obtained on April 29, 2019, which showed no evidence of acute intracranial process or mass with no evidence of infarction, hemorrhage, mass, midline shift, or abnormal extra-axial fluid collection. ASSESSMENT AND PLAN: The patient is a 73-year-old female with past medical history of hyperlipidemia; hypertension; atrial fibrillation; coronary artery disease, status post coronary artery bypass graft; morbid obesity; gastroesophageal reflux disease; and colon cancer, status post left hemicolectomy in February 2019; presenting with worsening congestive heart failure (ejection fraction of 10% to 15%), nausea, vomiting, parosmia, and dysgeusia contributing to significant weight loss/moderate protein calorie malnutrition. 1. Dysgeusia/parosmia. The patient is presenting with a 1-year history of progressively worsening dysfunction about taste and smell resulting in the patient's inability to tolerate oral foodstuffs secondary to increased nausea and vomiting associated with the taste and smell of these things. More recently, the patient underwent an upper endoscopy on March of 2019, which was negative for any intraluminal abnormality related to her dysgeusia/parosmia. During the course of this admission, she has been evaluated with MRI of brain (negative) in addition to negative serologies including negative heavy metal screen, antinuclear antibody, and as far has not responded to administration of Afrin for allergic rhinitis. At this time, the origin of her dysgeusia/parosmia is unknown, but may benefit from evaluation from Otolaryngology given her significantly deranged taste and smell resulting in nausea, vomiting, and significant malnutrition. RECOMMENDATIONS: 1. Would continue the patient on pantoprazole IV 40 mg daily. 2. Would continue with optimization of her cardiac status as her worsening cardiac function maybe contributing to her change in taste and smell. 3. Would consult ENT services for further evaluation. 4. Given her weight loss and moderate protein calorie malnutrition, she could be considered a candidate for percutaneous gastrostomy tube placement, although the patient is somewhat reluctant to proceed at this time. I am curious to see if the ENT physician can provide any additional recommendations prior to us proceeding with this modality. We will continue to follow. Please call with any questions. Job ID: [id number]
[2019-05-12 03:42] LABS: Band 2 % (5-11); Hemoglobin 8.6 g/dL (12.0-16.0); Hypochromia SLIGHT = 6-15 cells (100X) (0-5/hpf); Lymphocytes 19 % (21-51); MDiff Complete? YES; Mean Corpuscular HGB CONC 34.9 g/dL (32.0-36.0); Mean Corpuscular Volume 85.9 fL (78.0-98.0); Mean Platelet Volume 7.9 fL (7.4-10.4); Monocytes 2 % (0-10); Neutrophil 77 % (42-75); Platelet Count 84 thou/uL (130-400); Platelet Morphology Comment Appears Decreased; RBC Distribution Width 17.7 % (11.5-14.5); Red Blood Cell (RBC) Count 2.86 mill/uL (4.20-5.40); White Blood Cell (WBC) Count 2.6 thou/uL (4.8-10.8)
[2019-05-12] MEDS: Dextrose 5 % And 0.9 % NaCl 1,000 ML IV SCH ×2 (09:33→18:38)
[2019-05-12] MEDS: Megestrol Acetate 40 MG TAB PO SCH ×2 (09:34→21:18)
[2019-05-12] MEDS: Oxymetazoline HCl 0.05% (30 ML BOT) NS SCH (09:34)
[2019-05-12] MEDS: Aspirin 81 mg Enteric Coated Tablet PO SCH (09:34)
[2019-05-12] MEDS: pyridOXINE 50 MG (B6) TAB PO SCH ×3 (09:35→21:18)
[2019-05-12] MEDS: Pantoprazole 40 MG VIAL IVP SCH (09:35)
--- NOTE | 2019-05-12 15:26 | PDOC.HOSPP ---
- Subjective Encounter Date: 05/12/19 Encounter Time: 15:25 Subjective: f/u for deconditioning, anorexia, intermittent N/V and general FTT. Plan for PEG tube placement in next 24h. - Objective Vital Signs & Weight: Vital Signs (12 hours) Temp Pulse Ox 05/12/19 11:30 97.6 F 05/12/19 08:00 96 05/12/19 07:33 97.3 F L 05/12/19 04:00 97.9 F Weight Admit Weight 251 lb 5.231 oz Weight 259 lb 12.8 oz Most Recent Monitor Data Heart Rate from ECG 60 NIBP 162/77 NIBP BP-Mean 105 Respiration from ECG 22 SpO2 86 I&O: 05/11/19 05/12/19 05/13/19 06:59 06:59 06:59 Intake Total 3078 1443 Output Total 1450 850 Balance 1628 593 Result Diagrams: 05/12/19 03:17 05/10/19 03:35 Additional Labs: Microbiology 04/23/19 20:33 Venous blood - Right Hand Blood Culture - Final NO GROWTH IN 5 DAYS 04/23/19 20:03 Urine Straight Catheter Urine Culture - Final NO GROWTH AT 36 HOURS 04/23/19 19:53 Nasal swab Influenza Types A,B Direct EIA - Final 04/23/19 19:43 Venous blood - Left Hand Blood Culture - Final NO GROWTH IN 5 DAYS Laboratory Tests 05/06/19 05/07/19 05/08/19 19:59 16:12 03:35 WBC 2.8 L Hgb 9.3 L Plt Count 96 L Sodium 128 L 127 L Iron Ferritin 05/08/19 05/09/19 05/09/19 03:35 03:48 03:48 WBC 2.8 L Hgb 9.1 L Plt Count 101 L Sodium Iron 49 L Ferritin 451.76 H EKG Reviewed by me: Yes (Tele - SR) Hospitalist ROS - Medication Medications: Active Medications Generic Name Dose Route Start Last Admin Trade Name Freq PRN Reason Stop Dose Admin Apixaban 5 mg 05/02/19 21:00 05/10/19 10:13 Eliquis PO 5 mg BID BENJY Administration Aspirin 81 mg 04/28/19 09:00 05/12/19 09:34 Ecotrin PO 81 mg DAILY BENJY Administration Atorvastatin Calcium 40 mg 04/27/19 21:00 05/11/19 20:26 Lipitor PO 40 mg HS BENJY Administration Dextrose/Sodium Chloride 1,000 mls @ 100 mls/hr 05/09/19 18:45 05/12/19 09:33 D5 0.9% Ns IV 1,000 mls .Q10H BENJY Administration Megestrol Acetate 40 mg 05/06/19 21:00 05/12/19 09:34 Megace PO 40 mg BID BENJY Administration Ondansetron HCl 8 mg 05/09/19 18:40 05/10/19 10:17 Zofran IVP 8 mg Q6H PRN Administration Nausea/Vomiting Oxymetazoline HCl 0 ml 04/28/19 09:00 05/12/19 09:34 Nasal Decongestant NS 1 ml DAILY BENJY Administration Pantoprazole Sodium 40 mg 04/29/19 09:00 05/12/19 09:35 Protonix IVP 40 mg DAILY BENJY Administration Pyridoxine HCl 50 mg 04/28/19 15:00 05/12/19 09:35 Vitamin B 6 PO 50 mg TID BENJY Administration Sacubitril/Valsartan 1 tab 05/07/19 21:00 05/12/19 09:35 Entresto 24 Mg-26 Mg Tablet PO 1 tab BID BENJY Administration Scopolamine 1.5 mg 05/09/19 18:45 05/09/19 19:13 Transderm Scop TD 1.5 mg Q3D BENJY Administration Sertraline HCl 50 mg 05/12/19 09:00 05/12/19 09:35 Zoloft PO 50 mg DAILY BENJY Administration Sodium Chloride 10 ml 04/24/19 03:18 05/04/19 09:32 Normal Saline Pf FS 10 ml PRN PRN Administration RECONSTITUTION - Exam General Appearance: awake alert General - other findings: opens eyes and nods and mumbles a few words Eye: PERRL, anicteric sclera ENT: normocephalic atraumatic, no oropharyngeal lesions Neck: supple, symmetric, no JVD, no thyromegaly Heart: RRR, no gallops, no rubs, normal peripheral pulses Heart - other findings: S1, S2 Respiratory: CTAB, no wheezes, no rales, no ronchi, normal chest expansion Gastrointestinal: soft, non-tender, non-distended, normal bowel sounds, no palpable masses Gastrointestinal - other findings: obese Extremities: no cyanosis, no clubbing, no edema Skin: normal turgor Neurological: no new deficit Musculoskeletal: generalized weakness Psychiatric: oriented to person, somnolent, lethargic Hosp A/P (1) Nausea & vomiting Code(s): R11.2 - NAUSEA WITH VOMITING, UNSPECIFIED Status: Chronic Plan: Intermittent, continue antiemetics, IVF's (2) Anorexia Code(s): R63.0 - ANOREXIA Status: Acute Plan: Plan for PEG placement and enteral feeds due to poor po intake and moderate malnutrition (3) Hypotension Status: Acute Qualifiers: Hypotension type: hypotension due to drug Qualified Code(s): I95.2 - Hypotension due to drugs Plan: Likely iatrogenic, improved trend overall (4) Syncope and collapse Code(s): R55 - SYNCOPE AND COLLAPSE Status: Acute (5) Physical deconditioning Code(s): R53.81 - OTHER MALAISE Status: Acute (6) Cardiomyopathy Code(s): I42.9 - CARDIOMYOPATHY, UNSPECIFIED Status: Acute (7) Adenocarcinoma, colon Code(s): C18.9 - MALIGNANT NEOPLASM OF COLON, UNSPECIFIED Status: Acute (8) Pulmonary emboli Code(s): I26.99 - OTHER PULMONARY EMBOLISM WITHOUT ACUTE COR PULMONALE Status : Acute - Plan plan discussed w/ family, PT/OT, transition social worker, speech therapy, respiratory therapy, DVT proph w/SCDs Continue supportive mgmt Hold Eliquis pending PEG insertion Decrease Compazine Increase Megace 40mg BID NS IVF CM for NH/SNF options, likely swing bed in [place] Decrease Entresto Hold Coreg Consult GI for PEG tube placement likely 05/13/19 AM lab: CBC
--- NOTE | 2019-05-12 16:39 | CON ---
DATE OF CONSULTATION: CHIEF COMPLAINT: Shortness of breath, dysgeusia, anosmia, anorexia, and decreased p.o. intake. HISTORY OF PRESENT ILLNESS: Ms. Quintero is a 73-year-old female patient, who has a recent diagnosis of adenocarcinoma of the colon as well as a significant history of hypertension, coronary artery disease, and atrial fibrillation. She presented to the emergency room with an elevated D-dimer and a CT angiogram showing an acute pulmonary embolism on the right lung and she was admitted for further evaluation. She has had a significant difficulty during her course with p.o. intake and has complained of decreased appetite, anosmia, dysgeusia, and occasional nasal congestion and has had some significant weight loss as well as atrial fibrillation. Myself, Dr. Fields was consulted as an Otolaryngology just evaluation for sinus disease or possible cause for anosmia or decreased taste driving decreased p.o. intake. REVIEW OF SYSTEMS: All review of systems was negative except for what was mentioned in the history of present illness. SKIN: Negative. EYES: Negative. EARS, NOSE, and throat: Please see HPI, otherwise negative. RESPIRATORY: Negative. CARDIOVASCULAR: Negative. GASTROINTESTINAL: Negative. MUSCULOSKELETAL: Negative. NEUROLOGIC: Negative. HEMATOLOGIC: Negative. LYMPHATIC: Negative. IMMUNOLOGIC: Negative. ENDOCRINE: Negative. PHYSICAL EXAMINATION: GENERAL: The patient is somnolent, however, alert when responding to commands. She is slow to respond to questions and uses incomplete answers. HEAD AND FACE: Normocephalic and atraumatic. No facial skin lesions. No maxillary tenderness. No frontal tenderness. No parotid gland masses or tenderness. No submandibular gland masses or tenderness. Eyes are equally round and reactive to light. Extraocular movements are intact. No nystagmus on lateral gaze. Ears, right and left pinnae are normal. EACs are clear. TMs are intact with normal landmarks. No evidence of effusion or infection. TMs are mobile with autoinsufflation. Nose, external nose is normal. Nasal mucosa is healthy. There is not significant edema of the turbinates are of normal size. No masses or lesions. There is slight septal deviation and slight septal spur at the inferior aspect of the septum at the maxillary crest. Nasal cavity and sinus evaluation with rigid nasal endoscopy performed. Please see procedure note. Oral cavity; lips, teeth, tongue and gums are normal. Oral mucosa is moist without masses or lesions. Tongue is mobile. Palate and uvula without lesions and symmetric elevation and the pharyngeal mucosa is normal appearing. NECK: No lymphadenopathy. Trachea is midline. No masses or lesions. Thyroid appears to be in normal size. NEUROLOGIC: Cranial nerves 2 through 12 are grossly intact. Mood is somnolent , but affect is normal. PROCEDURE: Rigid nasal endoscopy. Anesthesia with 4% lidocaine, benzocaine, and Afrin combo spray 2 sprays on each side. The nasal cavity was evaluated with the endoscope bilaterally. The inferior turbinates showed significant decongest with decongestant spray. Middle turbinates in place. No polyps, lesions, or masses were noted in the nasal cavity. The ostiomeatal complex was not narrowed, seems to be patent. There is no purulent mucosa or discharge. The choana are patent and the soft palate is mobile during speech with no excessive adenoid tissue or other irregular tissue. There is no kajal bullosa on either side noted or normal nasal cavity and anatomy that would lead to sinus infection. The patient tolerated the procedure well. ASSESSMENT AND PLAN: A 73-year-old female with admission for pulmonary embolism and atrial fibrillation, history of coronary artery disease and hypertension and a new diagnosis of colon cancer with significant dysgeusia, anosmia, and decreased p.o. intake. Given the fact that the patient has no sinus disease, no inflammatory signs, no masses or lesions. The patient has decrease in sense of smell and decrease in taste and appetite may be related to her current health state as well as her age, other common causes for anosmia are viral or ischemic, which may be unclear at this point as to the cause. If the patient wants to continually evaluate for her cause of anosmia and change in taste, we would recommend an MRI with contrast as an outpatient of the brain to better elucidate the olfactory bulbs; however, given that there is no sinus disease or inflammation or polyps or masses, the cause of decreased taste would likely be related to her current overall health. We would recommend the patient continue to try to increase p.o. intake but while the patient is making an effort to increase p.o. intake, we would recommend a PEG tube with tube feeding to supplement that until the patient is ready to take her full diet by mouth. Job ID: [id number] [facility]
[2019-05-12] MEDS: Scopolamine 1.5 mg/72 hour Patch TD SCH (18:38)
--- NOTE | 2019-05-12 20:26 | PRG ---
DATE OF SERVICE: 05/12/2019 REASON FOR CONSULTATION: Chronic nausea/vomiting, dysgeusia, parosmia, and weight loss with moderate protein-calorie malnutrition. SUBJECTIVE: The patient continues to have significant difficulty with feedings given increased nausea associated with both smell and taste of food; however, she denies any dysphagia or odynophagia with ingested food. Otherwise, she denies any fevers, chills, hematemesis, melena, hematochezia, or abdominal pain. OBJECTIVE: VITAL SIGNS: Temperature 98.1, heart rate 79, blood pressure 137/78, respiratory rate 10, and saturating 100% on room air. GENERAL: The patient was lying in bed, in no acute distress. Alert and oriented x3. CARDIOVASCULAR: Regular rate and rhythm. RESPIRATORY: Clear to auscultation bilaterally. ABDOMEN: Normoactive bowel sounds. Soft, nontender, and nondistended. EXTREMITIES: No cyanosis, clubbing, or edema. LABORATORY DATA: CBC with a white blood cell count of 2.6, hemoglobin of 8.6, hematocrit of 24.6, and platelets of 84. IMAGING DATA: No current GI imaging is available for review. ASSESSMENT AND PLAN: The patient is a 73-year-old female with a past medical history of hyperlipidemia; hypertension; atrial fibrillation; coronary artery disease, status post CABG; morbid obesity; GERD and colon cancer, status post left hemicolectomy in February 2019 presenting with worsening congestive heart failure (ejection fraction of 10% to 15%), nausea, vomiting, parosmia and dysgeusia contributing to significant weight loss/moderate protein-calorie malnutrition. Dysgeusia/parosmia. The patient is presenting with a longstanding history of worsening dysfunction of both state and smell resulting in increased nausea and vomiting with consumption of most food stuffs. Upper endoscopy in March 2019 was negative for any intraluminal abnormality related to her dysgeusia/parosmia. During this admission, MRI of the brain was negative in addition to negative serologies for heavy metal screening, antinuclear antibodies and thus far has not responded to administration of Afrin for allergic rhinitis. ENT evaluation performed on May 12, 2019 showed a normal sinus exam with no presence of nasal polyps or other etiologies that could contribute to her current condition. At this point, the patient has significantly decreased p.o. intake secondary to dysgeusia/parosmia with moderate protein-calorie malnutrition and would benefit from percutaneous gastrostomy tube as part of supplemental nutrition. RECOMMENDATIONS: 1. Would continue the patient on pantoprazole IV daily. 2. Appreciate the recommendations by ENT services. 3. Would proceed with EGD with PEG tube placement tomorrow given the holding of Eliquis for 48 hours at that point. We will continue to follow. Please call with any questions. Job ID: [id number]
[2019-05-12] MEDS: Atorvastatin Calcium 40 MG TAB PO SCH (21:18)
[2019-05-13 04:16] LABS: Band 12 % (5-11); Hemoglobin 9.2 g/dL (12.0-16.0); Lymphocytes 12 % (21-51); MDiff Complete? YES; Mean Corpuscular HGB CONC 34.3 g/dL (32.0-36.0); Mean Corpuscular Hemoglobin 29.2 pg (27.0-31.0); Mean Corpuscular Volume 85.2 fL (78.0-98.0); Mean Platelet Volume 8.5 fL (7.4-10.4); Monocytes 5 % (0-10); Neutrophil 71 % (42-75); Platelet Count 86 thou/uL (130-400); Platelet Morphology Comment Appears Decreased; RBC Distribution Width 18.1 % (11.5-14.5); Red Blood Cell (RBC) Count 3.15 mill/uL (4.20-5.40); White Blood Cell (WBC) Count 3.5 thou/uL (4.8-10.8)
[2019-05-13] MEDS: Dextrose 5 % And 0.9 % NaCl 1,000 ML IV SCH ×2 (04:59→16:24)
--- NOTE | 2019-05-13 09:49 | PDOC.HOSPP ---
- Subjective Encounter Date: 05/13/19 Encounter Time: 09:47 Subjective: Ms. Quintero was seen today in follow-up of PE, and poor oral intake. She does not have any complaints. She seems a bit confused. Her is at the bedside. - Objective Vital Signs & Weight: Vital Signs (12 hours) Temp Pulse Ox 05/13/19 08:00 100 05/13/19 07:27 98.2 F 05/13/19 04:00 97.8 F 05/13/19 00:00 98.8 F Weight Admit Weight 251 lb 5.231 oz Weight 264 lb 3.2 oz Most Recent Monitor Data Heart Rate from ECG 90 NIBP 122/81 NIBP BP-Mean 94 Respiration from ECG 14 SpO2 98 I&O: 05/12/19 05/13/19 05/14/19 06:59 06:59 06:59 Intake Total 1443 2750 Output Total 850 470 Balance 593 2280 Result Diagrams: 05/13/19 03:13 05/10/19 03:35 Hospitalist ROS - Medication Medications: Active Medications Generic Name Dose Route Start Last Admin Trade Name Freq PRN Reason Stop Dose Admin Apixaban 5 mg 05/02/19 21:00 05/10/19 10:13 Eliquis PO 5 mg BID BENJY Administration Aspirin 81 mg 04/28/19 09:00 05/12/19 09:34 Ecotrin PO 81 mg DAILY BENJY Administration Atorvastatin Calcium 40 mg 04/27/19 21:00 05/12/19 21:18 Lipitor PO 40 mg HS BENJY Administration Dextrose/Sodium Chloride 1,000 mls @ 100 mls/hr 05/09/19 18:45 05/13/19 04:59 D5 0.9% Ns IV 1,000 mls .Q10H BENJY Administration Megestrol Acetate 40 mg 05/06/19 21:00 05/12/19 21:18 Megace PO 40 mg BID BENJY Administration Ondansetron HCl 8 mg 05/09/19 18:40 05/10/19 10:17 Zofran IVP 8 mg Q6H PRN Administration Nausea/Vomiting Oxymetazoline HCl 0 ml 04/28/19 09:00 05/12/19 09:34 Nasal Decongestant NS 1 ml DAILY BENJY Administration Pantoprazole Sodium 40 mg 04/29/19 09:00 05/12/19 09:35 Protonix IVP 40 mg DAILY BENJY Administration Pyridoxine HCl 50 mg 04/28/19 15:00 05/12/19 21:18 Vitamin B 6 PO 50 mg TID BENJY Administration Sacubitril/Valsartan 1 tab 05/07/19 21:00 05/12/19 21:18 Entresto 24 Mg-26 Mg Tablet PO 1 tab BID BENJY Administration Scopolamine 1.5 mg 05/09/19 18:45 05/12/19 18:38 Transderm Scop TD 1.5 mg Q3D BENJY Administration Sertraline HCl 50 mg 05/12/19 09:00 05/12/19 09:35 Zoloft PO 50 mg DAILY BENJY Administration Sodium Chloride 10 ml 04/24/19 03:18 05/04/19 09:32 Normal Saline Pf FS 10 ml PRN PRN Administration RECONSTITUTION - Exam Eye: PERRL Heart: RRR, no murmur, no gallops, no rubs, normal peripheral pulses Respiratory: CTAB (with occasional wheeze), no wheezes, no rales, no ronchi, normal chest expansion Gastrointestinal: soft, non-tender, non-distended, normal bowel sounds, no palpable masses, no hepatomegaly Extremities: no cyanosis, 1+ LE edema (trace pedal edema in both lower extremities) Hosp A/P (1) Anorexia Code(s): R63.0 - ANOREXIA Status: Acute (2) Pulmonary emboli Code(s): I26.99 - OTHER PULMONARY EMBOLISM WITHOUT ACUTE COR PULMONALE Status : Acute (3) Physical deconditioning Code(s): R53.81 - OTHER MALAISE Status: Acute (4) Syncope and collapse Code(s): R55 - SYNCOPE AND COLLAPSE Status: Acute (5) Nausea & vomiting Code(s): R11.2 - NAUSEA WITH VOMITING, UNSPECIFIED Status: Chronic (6) Adenocarcinoma, colon Code(s): C18.9 - MALIGNANT NEOPLASM OF COLON, UNSPECIFIED Status: Acute (7) Cardiomyopathy Code(s): I42.9 - CARDIOMYOPATHY, UNSPECIFIED Status: Acute (8) Hyponatremia Code(s): E87.1 - HYPO-OSMOLALITY AND HYPONATREMIA Status: Acute - Plan * Anorexia with poor oral intake- plan is for EGD with PEG tube placement today * Pulmonary Embolus- Eliquis is on hold for the procedure * Blood pressure is stable * Cardiomyopathy- her EF has improved since her last ECHO * Deconditioning-PT and OT * Plan is for Swing Bed placement following discharge
[2019-05-13] MEDS: Aspirin 81 mg Enteric Coated Tablet PO SCH (10:13)
[2019-05-13] MEDS: Pantoprazole 40 MG VIAL IVP SCH (10:14)
[2019-05-13] MEDS: Oxymetazoline HCl 0.05% (30 ML BOT) NS SCH (10:14)
[2019-05-13] MEDS: Megestrol Acetate 40 MG TAB PO SCH ×2 (10:14→21:25)
[2019-05-13] MEDS: pyridOXINE 50 MG (B6) TAB PO SCH ×3 (10:15→21:25)
[2019-05-13] MEDS ORDERED: Ketamine 50 MG/ML (10ML VIAL) ONE (12:07)
--- NOTE | 2019-05-13 14:03 | OP ---
DATE OF PROCEDURE: 05/13/2019 INDICATION FOR PROCEDURE: Moderate protein-calorie malnutrition, dysgeusia/parosmia resulting in inadequate oral intake. PROCEDURE PERFORMED: Esophagogastroduodenoscopy with biopsy. DESCRIPTION OF PROCEDURE: After the risks and benefits of the procedure were explained to the patient and the patient's surrogate (the patient's ) including risks of bleeding, infection, perforation, reactions to anesthesia, aspiration and/or pain, informed consent was obtained. The patient was then taken to the endoscopy suite, where she was placed in the supine position with a deep sedation administered via ketamine and anesthesia support. Once adequate sedation was achieved and antibiotics were being administered (Ancef 2 g), the standard gastroscope was introduced into the mouth with intubation of the esophagus, stomach, and the possible small intestines with the findings listed below. The patient tolerated the procedure well with no immediate perioperative complications. Upon conclusion of the procedure, all equipment was removed from the patient and she was transferred to PACU in satisfactory condition. FINDINGS: Esophagus: Normal-appearing mucosa was seen in the proximal, mid, and distal esophagus. There was no evidence of erosions, ulcerations, mass lesions, or active/recent bleeding. Stomach: Significant erythema /mottled type pattern was seen in both the gastric fundus and body without associated erosions or ulcerations. Multiple biopsies were taken from this region for further evaluation, otherwise normal-appearing mucosa was seen in the distal greater curvature, antrum, and incisura. There was no evidence of erosions, ulcerations, mass lesions, or active/recent bleeding. Concerning the gastrostomy tube portion of this examination, one-to-one compression and transillumination were performed in anticipation of localizing a spot for a gastrostomy tube placement. However, good one-to-one compression could not be achieved with transillumination (either one or the other), raising concern for a significant amount of scar tissue and/or bowel overlying the stomach, which would preclude placement of an endoscopically placed gastrostomy tube. As such, the gastrostomy tube portion of this examination was not performed. Duodenum: Normal-appearing mucosa was seen in both the duodenal bulb and second portion of the duodenum. There was no evidence of erosions, ulcerations, mass lesions, or active/recent bleeding. IMPRESSION: 1. Patchy mucosa in a mottled pattern seen in the gastric fundus and body concerning for atrophic gastritis versus infection versus neoplastic process (less likely). 2. Unsuccessful attempt at placement of a gastrostomy tube due to lack of good one-to-one compression and transillumination. 3. Otherwise normal upper endoscopy. RECOMMENDATIONS: 1. Would continue the patient on PPI daily in light of atrophic gastritis. 2. Would consult General Surgery for evaluation of the patient and possible surgically placed gastrostomy tube for moderate protein-calorie malnutrition. 3. Would continue to encourage eating by mouth/optimizing nutrition. 4. We will continue to hold anticoagulation in light of possible gastrostomy tube within the next 24 to 48 hours. We will continue to follow. Please call with any questions. Job ID: [id number]
[2019-05-13] MEDS ORDERED: CEFAZOLIN 2 GM in Premix Bag 1 BAG IVPB SCH (14:45)
--- NOTE | 2019-05-13 15:38 | CON ---
DATE OF CONSULTATION: HISTORY OF PRESENT ILLNESS: Ana Quintero is a 73-year-old female who has been hospitalized since April 23, presented to the emergency room with findings of pulmonary embolus. She has been anticoagulated. She has been seen Dr. Baker. She was over a month ago in [place] complaining of weakness, underwent endoscopy, found to have a left colon mass, underwent laparotomy, left colectomy resection. She apparently has canceled her appointments with general road production manager in [place], Johnna Shrestha has seen her here. Records need to be obtained from [place] regarding her left colon cancer resection as far as any indication for adjunctive therapy. The patient has suffered weight loss due to the lack of appetite. Apparently, there has been no dysphagia. There is a report of her having had a recent upper endoscopy with no anatomic abnormality on CAT scan. She is noted to have a small hiatal hernia. Also on CAT scan, she is noted to have no major organs when her stomach and upper abdominal wall. She has been evaluated by Cardiology. She is known to have a cardiomyopathy 15% to 20% EF, atrial fibrillation. She has a history of coronary artery bypass grafting and stenting. She has been seen by Cardiology, recent hospitalization. Dr. Fields is seeing her for an ENT standpoint to look and see why she has no appetite or taste for food. Dr. Marroquin had a failed attempt at PEG tube placement today. I have been consulted regarding establishment of feeding tube. Feeding tube has been placed because of moderate protein-calorie malnutrition. Good transillumination could not be obtained. My plan is tomorrow would be to return to the operating room and plan re-attempted PEG tube placement, reserving laparoscopy if indicated. She has upper midline incision, which may complicate placement. ALLERGIES: CIPRO AND IODINE. SOCIAL HISTORY: Tobacco, none. Alcohol, none. MEDICATIONS: 1. Omeprazole. 2. Augmentin. 3. Potassium. 4. Multaq as an outpatient and inpatient. Eliquis has been held. She has been on: 1. Ecotrin. 2. Lipitor. 3. Tylenol. 4. Dulcolax. 5. Apresoline. 6. Megace. 7. Nitrostat. 8. Zofran. 9. Zoloft. PAST SURGICAL HISTORY: Failed PEG tube placement, left colon resection for colon cancer in [place] over a month ago, coronary artery bypass grafting, coronary stent, cardiac cath on 04/24/2019. Echocardiogram 04/27/2019, 15% ejection fraction. LV moderately increased, mild tricuspid regurgitation, severely dilated pulmonary artery, right ventricular pressure is not elevated. Cholecystectomy in the past. Knee implant. REVIEW OF SYSTEMS: Weakness, malaise and as outlined above. PHYSICAL EXAMINATION: GENERAL: The patient is morbidly obese. Her was present, they are not a reliable historian for family history. They have difficulty recalling recent surgeries and details of reports, medical office specialist's information. VITAL SIGNS: Height 5 feet 5 inches, weight 264 pounds, 44 BMI. Temperature 97.8 and blood pressure 108/75. HEAD, EARS, EYES, NOSE, AND THROAT: Unremarkable. LUNGS: Clear to auscultation. CARDIAC: Regular rate and rhythm. ABDOMEN: Obese and soft. Midline incision in upper abdomen well healed. No hernias evident. ASSESSMENT AND PLAN: 1. Malnutrition. We will attempt PEG tube tomorrow, reserving laparoscopy if necessary. 2. Pulmonary embolism. Anticoagulation hold for now. 3. Cardiomyopathy, coronary artery disease stable, followed by Dr. Martin. 4. Colon cancer history. Job ID: [id number]
[2019-05-13] MEDS: Atorvastatin Calcium 40 MG TAB PO SCH (21:25)
[2019-05-14 03:38] LABS: INR-International Normal Ratio 1.3; Prothrombin Time 15.9 SEC (12.0-14.7)
[2019-05-14 04:06] LABS: Anion Gap 11 mmol/L (10-20); BUN (Urea Nitrogen) 11 mg/dL (9.8-20.1); Calc. Creatinine Clearance 122 mL/min (70-130); Calcium 8.5 mg/dL (7.8-10.44); Carbon Dioxide 18 mmol/L (23-31); Chloride 106 mmol/L (98-107); Estimated GFR-MDRD 72; Glucose 96 mg/dL (83-110); Sodium 132 mmol/L (136-145)
[2019-05-14 04:11] LABS: Potassium 2.8 mmol/L (3.5-5.1)
[2019-05-14] MEDS ORDERED: Potassium Chloride 40 MEQ in Sodium Chloride 0.9% 250 ML 250 ML IVPB SCH (05:00)
[2019-05-14 08:38] LABS: Hemoglobin 10.6 g/dL (12.0-16.0); Mean Corpuscular HGB CONC 34.3 g/dL (32.0-36.0); Mean Corpuscular Hemoglobin 29.1 pg (27.0-31.0); Mean Corpuscular Volume 84.9 fL (78.0-98.0); Mean Platelet Volume 8.2 fL (7.4-10.4); Platelet Count 96 thou/uL (130-400); RBC Distribution Width 18.6 % (11.5-14.5); Red Blood Cell (RBC) Count 3.63 mill/uL (4.20-5.40); White Blood Cell (WBC) Count 7.2 thou/uL (4.8-10.8)
[2019-05-14 09:02] LABS: Burr Cells SLIGHT = 2-5 cells (100X) (0-1/hpf); Elliptocytes SLIGHT = 2-5 cells (100X) (0-1/hpf); MDiff Complete? YES; Ovalocytes SLIGHT = 2-5 cells (100X) (0-1/hpf); Platelet Morphology Comment Appears Decreased; Polychromasia SLIGHT = 2-3 cells (100X) (0-2/hpf)
--- NOTE | 2019-05-14 10:47 | PDOC.HOSPP ---
- Subjective Encounter Date: 05/14/19 Encounter Time: 10:46 Subjective: Ms. Quintero was seen today in follow-up of pulmonary embolus and poor oral intake. She is a bit lethargic this morning. It is noted that the PEG tube was not able to be placed endoscopically . - Objective Vital Signs & Weight: Vital Signs (12 hours) Temp Pulse Ox 05/14/19 07:59 100 05/14/19 07:21 97.0 F L 05/14/19 04:00 97.7 F 05/13/19 23:13 97.7 F Weight Admit Weight 251 lb 5.231 oz Weight 266 lb 1.6 oz Most Recent Monitor Data Heart Rate from ECG 81 NIBP 141/88 NIBP BP-Mean 105 Respiration from ECG 19 SpO2 97 I&O: 05/13/19 05/14/19 05/15/19 06:59 06:59 06:59 Intake Total 2750 1860.1 Output Total 470 Balance 2280 1860.1 Result Diagrams: 05/14/19 08:28 05/14/19 02:59 Hospitalist ROS - Medication Medications: Active Medications Generic Name Dose Route Start Last Admin Trade Name Freq PRN Reason Stop Dose Admin Apixaban 5 mg 05/02/19 21:00 05/10/19 10:13 Eliquis PO 5 mg BID BENJY Administration Aspirin 81 mg 04/28/19 09:00 05/13/19 10:13 Ecotrin PO 81 mg DAILY BENJY Administration Atorvastatin Calcium 40 mg 04/27/19 21:00 05/13/19 21:25 Lipitor PO 40 mg HS BENJY Administration Dextrose/Sodium Chloride 1,000 mls @ 100 mls/hr 05/09/19 18:45 05/13/19 16:24 D5 0.9% Ns IV 1,000 mls .Q10H BENJY Administration Megestrol Acetate 40 mg 05/06/19 21:00 05/13/19 21:25 Megace PO 40 mg BID BENJY Administration Ondansetron HCl 8 mg 05/09/19 18:40 05/10/19 10:17 Zofran IVP 8 mg Q6H PRN Administration Nausea/Vomiting Oxymetazoline HCl 0 ml 04/28/19 09:00 05/13/19 10:14 Nasal Decongestant NS 1 ml DAILY BENJY Administration Pantoprazole Sodium 40 mg 04/29/19 09:00 05/13/19 10:14 Protonix IVP 40 mg DAILY BENJY Administration Pyridoxine HCl 50 mg 04/28/19 15:00 05/13/19 21:25 Vitamin B 6 PO 50 mg TID BENJY Administration Sacubitril/Valsartan 1 tab 05/07/19 21:00 05/13/19 21:25 Entresto 24 Mg-26 Mg Tablet PO 1 tab BID BENJY Administration Scopolamine 1.5 mg 05/09/19 18:45 05/12/19 18:38 Transderm Scop TD 1.5 mg Q3D BENJY Administration Sertraline HCl 50 mg 05/12/19 09:00 05/13/19 10:15 Zoloft PO 50 mg DAILY BENJY Administration Sodium Chloride 10 ml 04/24/19 03:18 05/04/19 09:32 Normal Saline Pf FS 10 ml PRN PRN Administration RECONSTITUTION - Exam Eye: PERRL Heart: RRR, no murmur, no gallops, no rubs, normal peripheral pulses Respiratory: CTAB, no wheezes, no rales, no ronchi, normal chest expansion Gastrointestinal: soft, non-tender, non-distended, normal bowel sounds, no palpable masses, no hepatomegaly Extremities: no cyanosis Hosp A/P (1) Anorexia Code(s): R63.0 - ANOREXIA Status: Acute (2) Pulmonary emboli Code(s): I26.99 - OTHER PULMONARY EMBOLISM WITHOUT ACUTE COR PULMONALE Status : Acute (3) Physical deconditioning Code(s): R53.81 - OTHER MALAISE Status: Acute (4) Syncope and collapse Code(s): R55 - SYNCOPE AND COLLAPSE Status: Acute (5) Nausea & vomiting Code(s): R11.2 - NAUSEA WITH VOMITING, UNSPECIFIED Status: Chronic (6) Adenocarcinoma, colon Code(s): C18.9 - MALIGNANT NEOPLASM OF COLON, UNSPECIFIED Status: Acute (7) Cardiomyopathy Code(s): I42.9 - CARDIOMYOPATHY, UNSPECIFIED Status: Acute (8) Hyponatremia Code(s): E87.1 - HYPO-OSMOLALITY AND HYPONATREMIA Status: Acute - Plan * Anorexia with poor oral intake- EGD findings noted. Dr. Sheets has been contacted for surgical Gastrostomy tube placement * Pulmonary Embolus- Eliquis is on hold for the procedure- will re-start once feasible * Blood pressure is stable * Hyponatremia- improved * Hypokalemia- continue to replace as needed * Cardiomyopathy- her EF has improved since her last ECHO * Deconditioning-PT and OT * Plan is for Swing Bed placement following discharge
[2019-05-14] MEDS: Aspirin 81 mg Enteric Coated Tablet PO SCH (11:58)
[2019-05-14] MEDS: Megestrol Acetate 40 MG TAB PO SCH ×2 (11:59→21:09)
[2019-05-14] MEDS: Pantoprazole 40 MG VIAL IVP SCH (11:59)
[2019-05-14] MEDS: pyridOXINE 50 MG (B6) TAB PO SCH ×3 (11:59→21:09)
[2019-05-14] MEDS: Oxymetazoline HCl 0.05% (30 ML BOT) NS SCH (11:59)
[2019-05-14 13:06] LABS: Anion Gap 13 mmol/L (10-20); BUN (Urea Nitrogen) 13 mg/dL (9.8-20.1); Calc. Creatinine Clearance 133 mL/min (70-130); Carbon Dioxide 13 mmol/L (23-31); Chloride 113 mmol/L (98-107); Estimated GFR-MDRD 79; Glucose 89 mg/dL (83-110); Potassium 4.5 mmol/L (3.5-5.1); Sodium 134 mmol/L (136-145)
[2019-05-14] MEDS ORDERED: Fentanyl 100 MCG/2 ML VIAL ONE (13:18)
[2019-05-14] MEDS ORDERED: Midazolam HCl 2 mg/2 ml Vial ONE (13:18)
[2019-05-14] MEDS ORDERED: Ketamine 50 MG/ML (10ML VIAL) ONE (13:18)
[2019-05-14] MEDS ORDERED: Lidocaine 1% w/Epinephrine 1:100K 20 ML VIAL ONE (13:21)
[2019-05-14] MEDS ORDERED: Bupivacaine 0.25% HCL 30 ML VIAL ONE (13:21)
[2019-05-14] MEDS: Dextrose 5 % And 0.9 % NaCl 1,000 ML IV SCH ×3 (17:00→21:07)
[2019-05-14] MEDS: Atorvastatin Calcium 40 MG TAB PO SCH (21:09)
[2019-05-15 04:10] LABS: Hemoglobin 9.2 g/dL (12.0-16.0); Mean Corpuscular HGB CONC 34.7 g/dL (32.0-36.0); Mean Corpuscular Hemoglobin 29.4 pg (27.0-31.0); Mean Corpuscular Volume 84.7 fL (78.0-98.0); RBC Distribution Width 18.9 % (11.5-14.5); Red Blood Cell (RBC) Count 3.13 mill/uL (4.20-5.40); White Blood Cell (WBC) Count 12.3 thou/uL (4.8-10.8)
[2019-05-15 04:11] LABS: Band 3 % (5-11); Lymphocytes 10 % (21-51); MDiff Complete? YES; Mean Platelet Volume 8.2 fL (7.4-10.4); Monocytes 8 % (0-10); Neutrophil 79 % (42-75); Platelet Count 80 thou/uL (130-400); Platelet Morphology Comment Appears Decreased
[2019-05-15] MEDS: Dextrose 5 % And 0.9 % NaCl 1,000 ML IV SCH (05:11)
--- NOTE | 2019-05-15 08:37 | OP ---
DATE OF PROCEDURE: 05/14/2019 PREOPERATIVE DIAGNOSES: 1. Dementia. 2. Malnutrition of protein calorie. 3. Failure to feed. 4. Obesity. 5. Status post recent colectomy in [place]. 6. Severe cardiomyopathy, 15% to 10%. 7. Coronary artery disease. 8. Failed percutaneous endoscopic gastrostomy tube by GI. POSTOPERATIVE DIAGNOSES: 1. Dementia. 2. Malnutrition of protein calorie. 3. Failure to feed. 4. Obesity. 5. Status post recent colectomy in [place]. 6. Severe cardiomyopathy, 15% to 10%. 7. Coronary artery disease. 8. Failed percutaneous endoscopic gastrostomy tube by GI. PROCEDURE PERFORMED: Percutaneous endoscopic gastrostomy tube. ANESTHESIA: TIVA and local with 1% Xylocaine with epinephrine. DESCRIPTION OF PROCEDURE: The patient was taken to the operating room, where in reverse Trendelenburg position, abdomen was prepared with ChloraPrep, endoscope placed per os under direct visualization. Using air insufflation, passed throughout the esophagus into the stomach. Stomach insufflated. A good indentation noted in the left subxiphoid. Local anesthetic was infiltrated in the skin and subcutaneous tissue. Stab incision made. Trocar catheter introduced percutaneously into the gastric lumen, visualized endoscopically. The wire passed through the trocar and grasped with a snare and brought out through the mouth, removed the endoscope. The feeding tube lubricated, connected to the wire, and then pulled back down the mouth, esophagus, fixating it to the abdominal wall with a fixation device. A 3-0 nylon was placed to tighten the incision around the tube as there was some bleeding from the subcutaneous tissue. Sterile dressing applied. Tube tailored to length and the feeding device secured and abdominal binder placed. The patient tolerated the procedure well. The patient had had a small stab incision made a little more lateral. This was closed with Dermabond. Job ID: [id number]
--- NOTE | 2019-05-15 09:28 | PDOC.HOSPP ---
- Subjective Encounter Date: 05/15/19 Encounter Time: 09:26 Subjective: Ms. Quintero was seen today in follow-up of Pulmonary Embolus and poor oral intake. She is a bit confused, but was able to tell me she is in the hospital, and that we are in the month of April. She is still quite drowsy. - Objective Vital Signs & Weight: Vital Signs (12 hours) Temp Pulse Ox 05/15/19 08:00 100 05/15/19 07:11 96.4 F L 05/15/19 03:57 97.6 F 05/14/19 23:48 97.6 F Weight Admit Weight 251 lb 5.231 oz Weight 270 lb 1.6 oz Most Recent Monitor Data Heart Rate from ECG 77 NIBP 116/63 NIBP BP-Mean 80 Respiration from ECG 14 SpO2 100 I&O: 05/14/19 05/15/19 05/16/19 06:59 06:59 06:59 Intake Total 1860.1 2241 Balance 1860.1 2241 Result Diagrams: 05/15/19 03:42 05/14/19 12:41 Hospitalist ROS - Medication Medications: Active Medications Generic Name Dose Route Start Last Admin Trade Name Freq PRN Reason Stop Dose Admin Aspirin 81 mg 04/28/19 09:00 05/14/19 11:58 Ecotrin PO Not Given DAILY BENJY Atorvastatin Calcium 40 mg 04/27/19 21:00 05/14/19 21:09 Lipitor PO 40 mg HS BENJY Administration Dextrose/Sodium Chloride 1,000 mls @ 100 mls/hr 05/09/19 18:45 05/15/19 05:11 D5 0.9% Ns IV 1,000 mls .Q10H BENJY Administration Megestrol Acetate 40 mg 05/06/19 21:00 05/14/19 21:09 Megace PO 40 mg BID BENJY Administration Ondansetron HCl 8 mg 05/09/19 18:40 05/10/19 10:17 Zofran IVP 8 mg Q6H PRN Administration Nausea/Vomiting Oxymetazoline HCl 0 ml 04/28/19 09:00 05/14/19 11:59 Nasal Decongestant NS Not Given DAILY BENJY Pantoprazole Sodium 40 mg 04/29/19 09:00 05/14/19 11:59 Protonix IVP Not Given DAILY BENJY Pyridoxine HCl 50 mg 04/28/19 15:00 05/14/19 21:09 Vitamin B 6 PO 50 mg TID BENJY Administration Sacubitril/Valsartan 1 tab 05/07/19 21:00 05/14/19 21:10 Entresto 24 Mg-26 Mg Tablet PO 1 tab BID BENJY Administration Scopolamine 1.5 mg 05/09/19 18:45 05/12/19 18:38 Transderm Scop TD 1.5 mg Q3D BENJY Administration Sertraline HCl 50 mg 05/12/19 09:00 05/14/19 11:59 Zoloft PO Not Given DAILY BENJY Sodium Chloride 10 ml 04/24/19 03:18 05/04/19 09:32 Normal Saline Pf FS 10 ml PRN PRN Administration RECONSTITUTION - Exam Eye: PERRL Heart: RRR, no murmur, no gallops, no rubs, normal peripheral pulses Respiratory: CTAB, no wheezes, no rales, no ronchi, normal chest expansion, no tachypnea, normal percussion Gastrointestinal: soft, non-tender, non-distended, normal bowel sounds, no palpable masses, no hepatomegaly Extremities: no cyanosis Hosp A/P (1) Anorexia Code(s): R63.0 - ANOREXIA Status: Acute (2) Pulmonary emboli Code(s): I26.99 - OTHER PULMONARY EMBOLISM WITHOUT ACUTE COR PULMONALE Status : Acute (3) Physical deconditioning Code(s): R53.81 - OTHER MALAISE Status: Acute (4) Syncope and collapse Code(s): R55 - SYNCOPE AND COLLAPSE Status: Acute (5) Nausea & vomiting Code(s): R11.2 - NAUSEA WITH VOMITING, UNSPECIFIED Status: Chronic (6) Adenocarcinoma, colon Code(s): C18.9 - MALIGNANT NEOPLASM OF COLON, UNSPECIFIED Status: Acute (7) Cardiomyopathy Code(s): I42.9 - CARDIOMYOPATHY, UNSPECIFIED Status: Acute (8) Hyponatremia Code(s): E87.1 - HYPO-OSMOLALITY AND HYPONATREMIA Status: Acute - Plan * Anorexia with poor oral intake- she is s/p Gastrostomy Tube placement * Pulmonary Embolus- consider re-starting Eliquis this evening or in the AM * Blood pressure is stable * Hyponatremia- continues to improve * Hypokalemia- better * Cardiomyopathy-stable * Deconditioning-PT and OT
--- NOTE | 2019-05-15 11:26 | PDOC.PALPN ---
Palliative Progress Note - Subjective Opens eyes, minimal verbal response but confused. Pallor, at bedside. - Objective Vital Signs: Vital Signs - Most Recent Temp Pulse Resp BP Pulse Ox 96.4 F L 105 H 12 137/89 100 05/15/19 07:11 05/09/19 09:20 05/06/19 23:30 05/09/19 09:20 05/15/19 08:00 - Physical Exam Constitutional: encephalitic, ill appearing HEENT: EOMI, moist MMs Respiratory: unlabored breathing, diminished lung sound Cardiovascular: RRR Gastrointestinal: positive bowel sounds, incontinent Deviation from normal: mildly distended, Genitourinary: incontinent Deviation from normal: purewick Musculoskeletal: edema present, diffuse muscle atrophy Neurology: moves all 4 limbs Skin: bruising, fragile Deviation from normal: Alert to person, place - Assessment (1) Adenocarcinoma, colon Code(s): C18.9 - MALIGNANT NEOPLASM OF COLON, UNSPECIFIED Current Visit: Yes Status: Acute (2) Anorexia Code(s): R63.0 - ANOREXIA Current Visit: Yes Status: Acute (3) Depressed affect Code(s): R45.89 - OTHER SYMPTOMS AND SIGNS INVOLVING EMOTIONAL STATE Current Visit: Yes Status: Acute (4) Palliative care encounter Code(s): Z51.5 - ENCOUNTER FOR PALLIATIVE CARE Current Visit: Yes Status: Acute (5) Physical deconditioning Code(s): R53.81 - OTHER MALAISE Current Visit: Yes Status: Acute (6) Pulmonary emboli Code(s): I26.99 - OTHER PULMONARY EMBOLISM WITHOUT ACUTE COR PULMONALE Current Visit: Yes Status: Acute (7) Nausea & vomiting Code(s): R11.2 - NAUSEA WITH VOMITING, UNSPECIFIED Current Visit: Yes Status : Chronic - Plan Plan: Peg tube place. continues to desire comfort measures. Unfortunately he would consider hospice, but cannot care for her at home and unable to fund both skilled stay with hospice. Desires to palliate symptoms related to multiple morbidities. Transitioned to DNAR and OOHDNAR on chart, Dr Islas aware and will sign hopeful for transfer to [facility], it is closer to their home that is between [place]. Emotional Support and therapeutic listening. [50] minutes spent on this encounter with >50% of the time in counseling and coordination of care. - ROS Non Response: due to mental status
[2019-05-15] MEDS: Aspirin 81 mg Enteric Coated Tablet PO SCH (11:50)
[2019-05-15] MEDS: pyridOXINE 50 MG (B6) TAB PO SCH ×3 (11:51→21:03)
[2019-05-15] MEDS: Megestrol Acetate 40 MG TAB PO SCH ×2 (11:51→21:03)
[2019-05-15] MEDS: Pantoprazole 40 MG VIAL IVP SCH (11:52)
[2019-05-15] MEDS: Oxymetazoline HCl 0.05% (30 ML BOT) NS SCH (11:52)
[2019-05-15 12:26] VITALS: BMI 44.9
--- NOTE | 2019-05-15 16:15 | PRG ---
DATE OF SERVICE: 05/15/2019 Ana is doing well today. Her abdomen is soft and nontender. She is tolerating her tube feedings. At this point, I will see her as needed. Please call if necessary. Job ID: [id number]
[2019-05-15] MEDS: Scopolamine 1.5 mg/72 hour Patch TD SCH (18:56)
[2019-05-15] MEDS: Atorvastatin Calcium 40 MG TAB PO SCH (21:03)
[2019-05-16 06:22] LABS: Hemoglobin 8.6 g/dL (12.0-16.0); Mean Corpuscular Hemoglobin 30.4 pg (27.0-31.0); Mean Corpuscular Volume 86.9 fL (78.0-98.0); Mean Platelet Volume 8.4 fL (7.4-10.4); Platelet Count 71 thou/uL (130-400); RBC Distribution Width 19.5 % (11.5-14.5); Red Blood Cell (RBC) Count 2.82 mill/uL (4.20-5.40); White Blood Cell (WBC) Count 8.6 thou/uL (4.8-10.8)
[2019-05-16 06:23] LABS: Band 9 % (5-11); Hypochromia SLIGHT = 6-15 cells (100X) (0-5/hpf); Lymphocytes 5 % (21-51); MDiff Complete? YES; Neutrophil 86 % (42-75); Platelet Morphology Comment Appears Decreased
[2019-05-16 07:53] LABS: Anion Gap 12 mmol/L (10-20); BUN (Urea Nitrogen) 15 mg/dL (9.8-20.1); Calc. Creatinine Clearance 159 mL/min (70-130); Calcium 7.7 mg/dL (7.8-10.44); Carbon Dioxide 14 mmol/L (23-31); Chloride 108 mmol/L (98-107); Estimated GFR-MDRD Greater than 90; Glucose 137 mg/dL (83-110); Sodium 131 mmol/L (136-145)
[2019-05-16 08:04] LABS: Potassium 2.7 mmol/L (3.5-5.1)
[2019-05-16] MEDS ORDERED: Potassium Chloride 20 MEQ TAB PER TUBE SCH ×2 (09:15→13:00)
[2019-05-16] MEDS: pyridOXINE 50 MG (B6) TAB PO SCH ×2 (09:42→14:38)
[2019-05-16] MEDS: Oxymetazoline HCl 0.05% (30 ML BOT) NS SCH (09:43)
[2019-05-16] MEDS: Pantoprazole 40 MG VIAL IVP SCH (09:43)
[2019-05-16] MEDS: Aspirin 81 mg Enteric Coated Tablet PO SCH (09:46)
[2019-05-16] MEDS: Megestrol Acetate 40 MG TAB PO SCH (09:46)
--- NOTE | 2019-05-16 10:22 | PDOC.PALPN ---
Palliative Progress Note - Subjective Awake, verbal with slurred speech. Tolerating PEG feedings. Remains confused. at bedside and continues to state that he wants his to be comfortable. - Objective Vital Signs: Vital Signs - Most Recent Temp Pulse Resp BP Pulse Ox 99 F 105 H 12 137/89 100 05/16/19 07:37 05/09/19 09:20 05/06/19 23:30 05/09/19 09:20 05/15/19 08:00 - Physical Exam Constitutional: encephalitic, ill appearing HEENT: EOMI, sclera anicteric Respiratory: unlabored breathing, diminished lung sound Gastrointestinal: soft, non-tender, no distention, incontinent Deviation from normal: PEG Musculoskeletal: edema present, diffuse muscle atrophy Neurology: moves all 4 limbs - Assessment (1) Adenocarcinoma, colon Code(s): C18.9 - MALIGNANT NEOPLASM OF COLON, UNSPECIFIED Current Visit: Yes Status: Acute (2) Anorexia Code(s): R63.0 - ANOREXIA Current Visit: Yes Status: Acute (3) Depressed affect Code(s): R45.89 - OTHER SYMPTOMS AND SIGNS INVOLVING EMOTIONAL STATE Current Visit: Yes Status: Acute (4) Palliative care encounter Code(s): Z51.5 - ENCOUNTER FOR PALLIATIVE CARE Current Visit: Yes Status: Acute (5) Physical deconditioning Code(s): R53.81 - OTHER MALAISE Current Visit: Yes Status: Acute (6) Pulmonary emboli Code(s): I26.99 - OTHER PULMONARY EMBOLISM WITHOUT ACUTE COR PULMONALE Current Visit: Yes Status: Acute (7) Nausea & vomiting Code(s): R11.2 - NAUSEA WITH VOMITING, UNSPECIFIED Current Visit: Yes Status : Chronic - Plan Plan: Revisited plan with for transition to [facility] for care, and he continues to want his comfortable but no aggressive measures. Revisited disease processes of multiple morbidities. Emotional support and therapeutic listening. [40] minutes spent on this encounter with >50% of the time in counseling and coordination of care. - ROS Non Response: due to mental status
--- NOTE | 2019-05-16 10:49 | PDOC.HOSPP ---
- Subjective Encounter Date: 05/16/19 Encounter Time: 10:47 Subjective: Ms. Quintero was seen today in follow-up of Pulmonary Embolus and encephalopathy. She is still confused this morning. No new complaints. - Objective Vital Signs & Weight: Vital Signs (12 hours) Temp 05/16/19 07:37 99 F 05/16/19 04:00 96.2 F L 05/15/19 23:41 97.2 F L Weight Admit Weight 251 lb 5.231 oz Weight 269 lb 8 oz Most Recent Monitor Data Heart Rate from ECG 64 NIBP 115/65 NIBP BP-Mean 81 Respiration from ECG 12 SpO2 100 I&O: 05/15/19 05/16/19 05/17/19 06:59 06:59 06:59 Intake Total 2241 1755 Output Total 900 Balance 2241 855 Result Diagrams: 05/16/19 05:58 05/16/19 07:32 Hospitalist ROS - Medication Medications: Active Medications Generic Name Dose Route Start Last Admin Trade Name Freq PRN Reason Stop Dose Admin Aspirin 81 mg 04/28/19 09:00 05/16/19 09:46 Ecotrin PO 81 mg DAILY BENJY Administration Atorvastatin Calcium 40 mg 04/27/19 21:00 05/15/19 21:03 Lipitor PO 40 mg HS BENJY Administration Megestrol Acetate 40 mg 05/06/19 21:00 05/16/19 09:46 Megace PO 40 mg BID BENJY Administration Ondansetron HCl 8 mg 05/09/19 18:40 05/10/19 10:17 Zofran IVP 8 mg Q6H PRN Administration Nausea/Vomiting Oxymetazoline HCl 0 ml 04/28/19 09:00 05/16/19 09:43 Nasal Decongestant NS 1 ml DAILY BENJY Administration Pantoprazole Sodium 40 mg 04/29/19 09:00 05/16/19 09:43 Protonix IVP 40 mg DAILY BENJY Administration Potassium Chloride 40 meq 05/16/19 09:15 05/16/19 09:48 K-Dur PER TUBE 05/16/19 11:00 40 meq NOW BENJY Administration Pyridoxine HCl 50 mg 04/28/19 15:00 05/16/19 09:42 Vitamin B 6 PO 50 mg TID BENJY Administration Sacubitril/Valsartan 1 tab 05/07/19 21:00 05/16/19 09:42 Entresto 24 Mg-26 Mg Tablet PO 1 tab BID BENJY Administration Scopolamine 1.5 mg 05/09/19 18:45 05/15/19 18:56 Transderm Scop TD 1.5 mg Q3D BENJY Administration Sertraline HCl 50 mg 05/12/19 09:00 05/16/19 09:42 Zoloft PO 50 mg DAILY BENJY Administration Sodium Chloride 10 ml 04/24/19 03:18 05/04/19 09:32 Normal Saline Pf FS 10 ml PRN PRN Administration RECONSTITUTION - Exam Eye: PERRL, anicteric sclera Heart: RRR, no murmur, no gallops, no rubs, normal peripheral pulses Respiratory: CTAB Gastrointestinal: soft, non-tender, non-distended, normal bowel sounds, no palpable masses, no hepatomegaly Extremities: no cyanosis, 2+ LE edema (+ generalized edema) Hosp A/P (1) Anorexia Code(s): R63.0 - ANOREXIA Status: Acute (2) Hypokalemia Code(s): E87.6 - HYPOKALEMIA Status: Acute (3) Pulmonary emboli Code(s): I26.99 - OTHER PULMONARY EMBOLISM WITHOUT ACUTE COR PULMONALE Status : Acute (4) Physical deconditioning Code(s): R53.81 - OTHER MALAISE Status: Acute (5) Syncope and collapse Code(s): R55 - SYNCOPE AND COLLAPSE Status: Acute (6) Nausea & vomiting Code(s): R11.2 - NAUSEA WITH VOMITING, UNSPECIFIED Status: Chronic (7) Adenocarcinoma, colon Code(s): C18.9 - MALIGNANT NEOPLASM OF COLON, UNSPECIFIED Status: Acute (8) Cardiomyopathy Code(s): I42.9 - CARDIOMYOPATHY, UNSPECIFIED Status: Acute (9) Hyponatremia Code(s): E87.1 - HYPO-OSMOLALITY AND HYPONATREMIA Status: Acute - Plan * Anorexia with poor oral intake- she is s/p Gastrostomy Tube placement- it has been cleared for use * Pulmonary Embolus- consider re-starting Eliquis this evening or in the AM * Blood pressure is stable * Hyponatremia- continues to improve * Hypokalemia- continue to replace * Cardiomyopathy-stable * Deconditioning-PT and OT
[2019-05-16 16:53] VITALS: BP 127/63; TEMP 98.1
--- NOTE | 2019-05-17 03:58 | PQF ---
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 Clinical indicators are provided on the bottom of this form for your review Can you please further clarify if pulmonary embolism is a complication of recent surgery or not? Please check appropriate box(s): [ ] pulmonary artery embolism is a complication of recent surgery [ ] pulmonary vein embolism is a complication of recent surgery [ ] pulmonary artery embolism is not a complication of recent surgery [ ] pulmonary vein embolism is not a complication of recent surgery [ X ] Other diagnosis please specify Pulmonary embolus as a complication of colon cancer [ ] Unable to determine In addition, please specify: Present on Admission (POA): [ X ] Yes [ ] No [ ] Unable to determine CLINICAL INDICATORS - SIGNS / SYMPTOMS / LABS Consult Dr. Shrestha pg.3- Pulmonary emboli, post surgical Consult Dr. Shrestha pg.3- newly diagnosed colon cancer with resection of tumor Consult pg.1- she had also enlarged main pulmonary artery suggestive of pulmonary artery hypertension Hospitalist PN 04/24 pg.3- segmental PE though post surgical PE RISK FACTORS status post left hemicolectomy-Consult 04/26 pg Colon cancer- Consult pg.1 CAD- H and P pg.1 HTN- H and P pg.1 Atrial fibrillation- H and P pg.1 Morbid obesity- Consult 04/26 TREATMENT: IV Fluids- MAR Lovenox 110mg MAR Heparin 1000 mg- MAR Chest X ray 04/22 Chest /Thorax CTA 04/[address] Shrestha Venogram 04/[address] Flynn (This form is maintained as a part of the permanent medical record) 2014 [employer] All Rights Reserved [email or web address]
[2019-05-17] MEDS ORDERED: Potassium Chloride 20 MEQ TAB PER TUBE SCH (09:00)
--- NOTE | 2019-05-18 15:09 | EKG ---
Test Reason : Blood Pressure : / mmHG Vent. Rate : 078 BPM Atrial Rate : 078 BPM P-R Int : 188 ms QRS Dur : 100 ms QT Int : 478 ms P-R-T Axes : -27 -22 155 degrees QTc Int : 544 ms Normal sinus rhythm Incomplete right bundle branch block Inferior infarct (cited on or before 23-APR-2019) Anterolateral infarct (cited on or before 23-APR-2019) Diffuse T wave inversion compatible with ischemia Prolonged QT Abnormal ECG When compared with ECG of 23-APR-2019 19:28, (Unconfirmed) Serial changes of Anterior infarct Present Confirmed by DR. Darlene JOVEL ([id number]) on 05/18/2019 3:08:40 PM Referred By: Confirmed By:DR. Darlene JOVEL
== END 2019-05-16 19:08 | disposition swing bed (61) | DRG 175 ==
LOC: ERS 19:05 → ERHOLD 04-24 01:34 → 2SE 04-24 01:38 → CCU 04-24 07:37 → IMCU/EMU 04-24 18:17 → 2SE 04-26 13:43 → CCU 05-07 01:30 → IMCU/EMU 05-07 15:08
PROVIDERS: ADMIT Internal Medicine; ATTEND Internal Medicine
PROC: 4A023N7 Measurement of Cardiac Sampling and Pressure, Left Heart, Percutaneous Approach (ICD-10-PCS; principal; 2019-05-01)
PROC: B2131ZZ Fluoroscopy of Multiple Coronary Artery Bypass Grafts using Low Osmolar Contrast (ICD-10-PCS; 2019-05-01)
PROC: B2151ZZ Fluoroscopy of Left Heart using Low Osmolar Contrast (ICD-10-PCS; 2019-05-01)
PROC: 0DB78ZX Excision of Stomach, Pylorus, Via Natural or Artificial Opening Endoscopic, Diagnostic (ICD-10-PCS; 2019-05-13)
PROC: 0DH63UZ Insertion of Feeding Device into Stomach, Percutaneous Approach (ICD-10-PCS; 2019-05-14)
PROC: BD12ZZZ Fluoroscopy of Stomach (ICD-10-PCS; 2019-05-14)
DX: I26.99 Other pulmonary embolism without acute cor pulmonale (principal); G93.41 Metabolic encephalopathy; Z68.41 Body mass index [BMI] 40.0-44.9, adult; I50.22 Chronic systolic (congestive) heart failure; I42.0 Dilated cardiomyopathy; E87.1 Hypo-osmolality and hyponatremia; E44.0 Moderate protein-calorie malnutrition; C18.9 Malignant neoplasm of colon, unspecified; Z66 Do not resuscitate; Z51.5 Encounter for palliative care; I25.10 Atherosclerotic heart disease of native coronary artery without angina pectoris; I48.0 Paroxysmal atrial fibrillation; I27.20 Pulmonary hypertension, unspecified; E86.0 Dehydration; I45.81 Long QT syndrome; E87.6 Hypokalemia; E66.01 Morbid (severe) obesity due to excess calories; K21.9 Gastro-esophageal reflux disease without esophagitis; R43.1 Parosmia; R43.2 Parageusia; I11.0 Hypertensive heart disease with heart failure; I25.5 Ischemic cardiomyopathy; K59.00 Constipation, unspecified; Z88.1 Allergy status to other antibiotic agents; Z91.041 Radiographic dye allergy status; Z79.899 Other long term (current) drug therapy; Z90.49 Acquired absence of other specified parts of digestive tract; Z87.891 Personal history of nicotine dependence; Z88.5 Allergy status to narcotic agent; Z95.5 Presence of coronary angioplasty implant and graft; Z95.1 Presence of aortocoronary bypass graft; Z28.21 Immunization not carried out because of patient refusal; Z95.0 Presence of cardiac pacemaker; I95.2 Hypotension due to drugs; T44.7X5A Adverse effect of beta-adrenoreceptor antagonists, initial encounter
CPT/HCPCS: 36415; 36416; 51701; 70450; 70553; 71045; 71275; 74018; 74177; 80048; 80053; 81001; 81003; 81015; 82175; 82274; 82553; 82565; 82728; 82805; 83540; 83605; 83655; 83690; 83735; 83825; 83880; 84132; 84439; 84443; 84484; 85007; 85014; 85018; 85025; 85027; 85046; 85049; 85379; 85610; 85730; 86038; 86225; 86850; 86900; 86901; 87040; 87086; 87804; 88305; 88312; 93005; 93010; 93306; 93459; 93798; 93970; 96365; 96366; 96372; 96375; 99152; 99153; A4353; C1769; C9113; J0690; J0780; J1160; J1200; J1644; J1650; J2001; J2250; J2405; J2543; J2930; J3010; J3475; J3480; J7050; J7512; Q0162; Q0163; Q0167; Q9967; S0020; S0028; S0179